=== PATIENT | female | born 1980 | race Caucasian/White ===

== ENCOUNTER → 2017-06-28 10:12 | Outpatient (CLI) | payer OTHER, SELFPAY ==
--- NOTE | 2017-06-28 | XR_ITS ---
XR foot wt bearing RT 2V HISTORY: Right foot pain ORDERING PHYSICIAN: Inessa Fuentes DPM PATIENT AGE: 36 years COMPARISON: None FINDINGS: Weightbearing views are performed. Flexion deformity involving the second through fifth digits. There is mild hallux valgus with first metatarsal phalangeal angle of 18 degrees with mild metatarsus varus. No fracture or dislocation. No lytic change or obvious radio opaque foreign body. No evidence of pes planus. IMPRESSION: Flexion deformity of the second through fifth toes with mild hallux valgus and metatarsus varus
--- NOTE | 2017-06-28 | XR_ITS ---
XR foot wt bearing LT 2V HISTORY: Foot pain ORDERING PHYSICIAN: Inessa Fuentes DPM PATIENT AGE: 36 years COMPARISON: 10/10/2007 FINDINGS: Weightbearing views are performed No fracture or dislocation. No lytic or blastic change. There is normal mineralization.. The joint spaces are well-preserved. No significant degenerative/arthritic changes. No erosive changes evident. There is mild pes planus with the calcaneal inclination angle of 16 degrees . No radio opaque foreign bodies evident. There is small calcaneal spur 3 mm. There is a vague area of increased density involving the distal tibial shaft seen on the lateral view nonspecific and may actually been present on the old study. IMPRESSION: 1. Mild pes planus. 2. Small calcaneal spur. 3. Nonspecific sclerotic area of the distal tibia.
== END ==
PROVIDERS: PCP Emergency Medicine; Visit Provider Podiatrist
DX: L84 Corns and callosities (principal)
CPT/HCPCS: 73620

== ENCOUNTER → 2017-07-05 14:30 | Outpatient (CLI) | payer OTHER, SELFPAY | PROVIDERS: Family Provider Emergency Medicine; PCP Emergency Medicine; Visit Provider Podiatrist | DX: S90.851D Superficial foreign body, right foot, subsequent encounter (principal) | CPT/HCPCS: 87070; 87077; 87205 ==

== ENCOUNTER → 2017-07-06 08:21 | Outpatient (CLI) | payer OTHER, SELFPAY ==
[2017-07-06 08:54] LABS: Basophils # 0.1 K/mm3 (0-0.2); Basophils % 0.8 % (0.1-2.0); Eosinophils # 0.2 K/mm3 (0.0-0.4); Eosinophils % 2.3 % (0.1-12.0); Hematocrit 44.9 % (37.0-47.0); Hemoglobin 14.3 g/dL (12.2-16.2); Lymphocytes # 2.6 K/mm3 (0.7-4.5); Lymphocytes % 24.2 K/mm3 (10-50); Mean Corpuscular HGB Conc 31.8 g/dL (31.8-35.4); Mean Corpuscular Hemoglobin 27.1 pg (27.0-31.2); Mean Corpuscular Volume 85.3 fl (81-99); Mean Platelet Volume 7.5 fl (7.4-10.4); Monocytes # 0.6 K/mm3 (0.1-1.0); Monocytes % 5.7 % (1.7-9.3); Neutrophils # 7.1 K/mm3 (1.8-7.8); Platelet Count 277 K/mm3 (142-424); Red Blood Count 5.27 M/mm3 (4.20-5.40); Red Cell Distribution Width 14.2 % (11.5-17.5); White Blood Count 10.6 K/mm3 (4.8-10.8)
[2017-07-06 09:57] LABS: C-Reactive Protein < 0.2 mg/L (0.0-0.9)
[2017-07-06 10:35] LABS: Erythrocyte Sedimentation Rate 9 mm/hr (0-20)
== END ==
PROVIDERS: PCP Emergency Medicine; Visit Provider Podiatrist
DX: S90.851D Superficial foreign body, right foot, subsequent encounter (principal)
CPT/HCPCS: 36415; 85025; 85651; 86140

== ENCOUNTER → 2019-03-19 11:28 | Outpatient (CLI) | payer OTHER, SELFPAY ==
--- NOTE | 2019-03-19 11:58 | XR_ITS ---
PROCEDURE: XR KNEE RT 3V CLINICAL INDICATION: pain COMPARISON: No exams were available for comparison FINDINGS: No fracture or dislocation. No lytic or blastic change. There is normal mineralization. Minimal osteoarthritic changes are present at the medial compartment and patellofemoral joint. No obvious fracture or dislocation. No lytic or blastic change. Other findings:None. 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
[2019-03-19 12:17] LABS: Basophils # 0.1 K/mm3 (0-0.2); Basophils % 0.6 % (0.1-2.0); Eosinophils # 0.3 K/mm3 (0.0-0.4); Eosinophils % 2.7 % (0.1-12.0); Hematocrit 44.9 % (37.0-47.0); Hemoglobin 13.4 g/dL (12.2-16.2); Lymphocytes # 2.4 K/mm3 (0.7-4.5); Lymphocytes % 21.6 % (10-50); Mean Corpuscular HGB Conc 29.7 g/dL (31.8-35.4); Mean Corpuscular Hemoglobin 26.2 pg (27.0-31.2); Mean Corpuscular Volume 88.1 fl (81-99); Mean Platelet Volume 7.5 fl (7.4-10.4); Monocytes # 0.7 K/mm3 (0.1-1.0); Monocytes % 6.7 % (1.7-9.3); Neutrophils # 7.4 K/mm3 (1.8-7.8); Neutrophils % 68.3 % (37.0-80.0); Platelet Count 354 K/mm3 (142-424); White Blood Count 10.8 K/mm3 (4.8-10.8)
[2019-03-19 12:47] LABS: Erythrocyte Sedimentation Rate 7 mm/hr (0-20)
[2019-03-19 13:48] LABS: Alanine Aminotransferase 20 U/L (12-78); Albumin Level 3.7 gm/dL (3.4-5.0); Albumin/Globulin Ratio 1.1 (1.1-1.8); Alkaline Phosphatase 50 U/L (46-116); Anion Gap 15.1 mEq/L (5-15); Aspartate Amino Transferase 16 U/L (15-37); Bilirubin,Total 0.2 mg/dL (0.2-1.0); Blood Urea Nitrogen 14 mg/dL (7-18); C-Reactive Protein 0.4 mg/dL (0.0-0.9); Calcium 9.3 mg/dL (8.5-10.1); Carbon Dioxide 26 mmol/L (21.0-32.0); Chloride 104 mmol/L (98-107); Chol/HDL Ratio 3.9 (1-3.5); Cholesterol 217 mg/dL (140-200); Creatinine,Serum 0.59 mg/dL (0.55-1.02); Estimated Glomerular Filt Rate 113 ml/min (>60); Free T4 (Free Thyroxine) 0.91 ng/dl (0.76-1.46); GFR (African American) 137 ML/MIN (>60); Globulin 3.3 gm/dl (1.3-3.2); Glucose 118 mg/dL (74-106); HDL Cholesterol 56 mg/dL (29-89); LDL Cholesterol 128 mg/dL (0-130); Potassium 4.1 mmoL/L (3.5-5.1); Sodium 141 mmol/L (136-145); Thyroid Stimulating Hormone 1.02 uIU/ml (0.358-3.740); Triglycerides 167 mg/dL (30-200); VLDL Cholesterol 33 mg/dL (0-40)
[2019-03-22 17:03] LABS: Vitamin D 25 Hydroxy 11.9 ng/mL (30.0-100.0)
== END ==
PROVIDERS: PCP Emergency Medicine; Visit Provider Nurse Practitioner Family
DX: M25.561 Pain in right knee (principal); R53.83 Other fatigue; E55.9 Vitamin D deficiency, unspecified
CPT/HCPCS: 36415; 73562; 80053; 80061; 82652; 84439; 84443; 85025; 85651; 86140

== ENCOUNTER → 2019-07-11 12:42 | Outpatient (CLI) | payer OTHER, SELFPAY ==
--- NOTE | 2019-07-11 12:42 | US_ITS ---
PROCEDURE: US EXTREMITY LT LIMITED CLINICAL INDICATION: lipoma below L inner knee Palpable area medial left knee COMPARISON: No exams were available for comparison FINDINGS: There is a superficial varicosity in the medial aspect of the left knee corresponding to the palpable abnormality. No cyst or other significant anomalies evident. IMPRESSION: Varicose vein in the medial left knee corresponding to palpable abnormality Dictated by: Saad Summers MD 07/11/2019 16:23 Electronically signed by Saad Summers MD in [place] 07/11/2019 16:23
--- NOTE | 2019-07-11 12:44 | US_ITS ---
PROCEDURE: US ABDOMEN COMPLETE CLINICAL INDICATION: Nodule under R lower ribs and periumbilical area Palpable nodule right upper quadrant COMPARISON: No exams were available for comparison FINDINGS: There are multiple palpable nodules in the right upper quadrant all demonstrating similar imaging characteristics. At least 5 nodules are present the largest measuring 2.5 x 1 x 2.2 cm with slight increased echogenicity consistent with multiple lipomas. IMPRESSION: Subcutaneous lipomas in the right upper quadrant Dictated by: Saad Summers MD 07/11/2019 16:21 Electronically signed by Saad Summers MD in [place] 07/11/2019 16:21
== END ==
PROVIDERS: PCP Emergency Medicine; Visit Provider Nurse Practitioner Family
DX: D17.79 Benign lipomatous neoplasm of other sites (principal); R22.2 Localized swelling, mass and lump, trunk
CPT/HCPCS: 76700; 76882

== ENCOUNTER 2020-07-07 15:28 | Emergency (ER) | payer OTHER, SELFPAY ==
[2020-07-07] VITALS (7 sets, daily range): BP systolic 112–133; BP diastolic 63–80; PULSE 69–88; RESP 13–25; TEMP 36.8–37.2; O2SAT 97–99; BMI 39.1
--- NOTE | 2020-07-07 15:31 | ECG_ITS ---
APPROVED REPORT Exam: Resting ECG HR:78 bpm ECG Measurements Heart Rate 78 AXES AL 180 P 55 QRSd 98 QRS 23 QT 410 T 10 QTc 467 Conclusion Normal sinus rhythm Normal ECG Electronically signed by : Bryce Sorenson, 07/08/2020 21:09:07
--- NOTE | 2020-07-07 15:39 | XR_ITS ---
PROCEDURE: XR CHEST 2V CLINICAL HISTORY: chest pain COMPARISON: No exams were available for comparison FINDINGS: The cardiomediastinal silhouette and pulmonary vascularity are within normal limits. The lungs are clear without infiltrates, suspicious nodules, or pleural effusions. No acute bony abnormalities. IMPRESSION: No acute findings. Dictated by: Saad Summers MD 07/07/2020 16:16 Saad Summers MD in [place] 07/07/2020 16:16
--- NOTE | 2020-07-07 15:40 | HMH.EDCP ---
ED Disposition Clinical Impression: Chest pain Qualifiers: Chest pain type: unspecified Qualified Code(s): R07.9 - Chest pain, unspecified Disposition: Home, Self-Care Condition on Discharge: Good Instructions: DI for Atypical Chest Pain, DI for Chest Pain Referrals: Maribel Mccall PA [Primary Care Provider] - 3 days Geraldo Anne MD [Staff Physician] - 3 days - Critical Care Critical Care Time: No Attestation: On , the high probability of a clinically significant, sudden or life threatening deterioration of the following system(s) required my full and direct attention, intervention and personal management. The time I documented below is in addition to time spent performing reported procedures but includes the following listed in this critical care notation. Medical Decision Making - Medical Records Medical records reviewed: Yes: I reviewed the patient's medical records. - Levon Inquiry Pt receiving controlled substance: No Vital Signs: 07/07/20 15:28 07/07/20 15:58 07/07/20 16:28 Temperature 98.9 F Temperature Source Oral Pulse Rate [Left Radial] 88 84 82 Respiratory Rate 20 14 25 H Blood Pressure [Right Arm] 126/63 124/70 114/73 Blood Pressure Mean [Right Arm] 84 88 86 Blood Pressure Source [Right Arm] Automatic Cuff Automatic Cuff Automatic Cuff Blood Pressure Position [Right Arm] Sitting Sitting Sitting 02 Sat by Pulse Oximetry 97 98 97 Oxygen Delivery Method Room Air Room Air Room Air 07/07/20 17:00 07/07/20 17:30 07/07/20 18:08 Temperature Temperature Source Pulse Rate [Left Radial] 72 71 69 Respiratory Rate 13 20 16 Blood Pressure [Right Arm] 127/72 119/77 133/65 Blood Pressure Mean [Right Arm] 90 91 87 Blood Pressure Source [Right Arm] Automatic Cuff Automatic Cuff Automatic Cuff Blood Pressure Position [Right Arm] Sitting Supine Sitting 02 Sat by Pulse Oximetry 98 99 99 Oxygen Delivery Method Room Air Room Air Room Air - Lab Data Lab results reviewed: Yes: I reviewed the patient's lab results. Lab Results 07/07/20 15:36: Sodium 140, Potassium 3.8, Chloride 106, Carbon Dioxide 26, Anion Gap 11.8, BUN 14, Creatinine 0.60, Estimated Creat Clear 221, Estimated GFR 110, Est GFR ( Amer) 133, Glucose 109 H, Calcium 9.7, Total Bilirubin 0.3, AST 23, ALT 20, Alkaline Phosphatase 62, Troponin I < 0.01, Total Protein 8.0, Albumin 4.7, Globulin 3.3 H, Albumin/Globulin Ratio 1.4 07/07/20 15:36: WBC 8.4, RBC 5.39, Hgb 14.6, Hct 45.9, MCV 85.2, MCH 27.0, MCHC 31.7 L, RDW 15.1, Plt Count 347, MPV 7.6, Neut % (Auto) 59.0, Lymph % (Auto) 30.7, Gaines % (Auto) 6.2, Eos % (Auto) 3.3, Baso % (Auto) 0.9, Neut # (Auto) 5.0, Lymph # (Auto) 2.6, Gaines # (Auto) 0.5, Eos # (Auto) 0.3, Baso # (Auto) 0.1 07/07/20 18:05: Troponin I < 0.01 Result diagrams: 07/07/20 15:36 07/07/20 15:36 Orders (Tests/Meds): ED MEDICATIONS Generic Name Dose Route Start Last Admin Trade Name Freq PRN Reason Stop Dose Admin Nitroglycerin 0.4 mg 07/07/20 15:38 07/07/20 15:48 Nitroglycerin 0.4mg Sl Tablet SL 07/08/20 15:39 0.4 mg Q5MINP PRN Administration Chest Pain Discontinued Medications Generic Name Dose Route Start Last Admin Trade Name Freq PRN Reason Stop Dose Admin Aspirin 324 mg 07/07/20 15:38 07/07/20 15:42 Aspirin 81mg Chewable Tablet PO 07/07/20 15:39 324 mg ONCE ONE Administration ORDERS Category Date Time Status Troponin I Q3H Lab 07/07/20 21:45 Ordered - ECG Data Tracing #1 EKG at 1531 shows a normal sinus rhythm with a rate of 78. No acute ST segment elevation or depression. No hyperacute T waves. Normal intervals. EKG interpreted by me. - MANJU Score for Non-Stemi Age of Patient: 40-49 years old Heart Rate: 70-89 bpm Systolic Blood Pressure: 120-139 mmhg Serum Creatinine: 0.40-0.79 mg/dl CHF Killip Class: I-No CHF Other Risk Factors: None Non-Stemi Risk Score: 72 Medical Decision Narrative: Troponins x2 are negative. G
[2020-07-07 15:50] LABS: Basophils # 0.1 K/mm3 (0-0.2); Basophils % 0.9 % (0.1-2.0); Eosinophils # 0.3 K/mm3 (0.0-0.4); Eosinophils % 3.3 % (0.1-12.0); Hematocrit 45.9 % (37.0-47.0); Hemoglobin 14.6 g/dL (12.2-16.2); Lymphocytes # 2.6 K/mm3 (0.7-4.5); Lymphocytes % 30.7 % (10-50); Mean Corpuscular HGB Conc 31.7 g/dL (31.8-35.4); Mean Corpuscular Volume 85.2 fl (81-99); Mean Platelet Volume 7.6 fl (7.4-10.4); Monocytes # 0.5 K/mm3 (0.1-1.0); Monocytes % 6.2 % (1.7-9.3); Platelet Count 347 K/mm3 (142-424); Red Blood Count 5.39 M/mm3 (4.20-5.40); Red Cell Distribution Width 15.1 % (11.5-17.5); White Blood Count 8.4 K/mm3 (4.8-10.8)
[2020-07-07 15:55] LABS: Chloride 106 mmol/L (98-107)
[2020-07-07 15:56] LABS: Potassium 3.8 mmoL/L (3.5-5.1); Sodium 140 mmol/L (136-145)
[2020-07-07 15:58] LABS: Alanine Aminotransferase 20 U/L (12-78); Alkaline Phosphatase 62 U/L (38-126); Anion Gap 11.8 mEq/L (5-15); Aspartate Amino Transferase 23 U/L (14-36); Bilirubin,Total 0.3 mg/dl (0.2-1.3); Blood Urea Nitrogen 14 mg/dl (7-17); Carbon Dioxide 26 mmol/L (22.0-30.0); Creatinine Clearance Estimated 221 mL/min (50-200); Estimated Glomerular Filt Rate 110 ml/min (>60); GFR (African American) 133 ML/MIN (>60)
[2020-07-07 15:59] LABS: Albumin Level 4.7 g/dl (3.5-5.0); Albumin/Globulin Ratio 1.4 (1.1-1.8); Calcium 9.7 mg/dl (8.4-10.2); Globulin 3.3 g/dL (1.3-3.2); Glucose 109 mg/dl (74-100)
[2020-07-07 16:13] LABS: Troponin I < 0.01 ng/ml (0.00-0.034)
[2020-07-07 18:47] LABS: Troponin I < 0.01 ng/ml (0.00-0.034)
== END 2020-07-07 18:59 | disposition home or self-care (01) ==
PROVIDERS: Emergency Provider Emergency Medicine; PCP Physician Assistant
DX: R07.9 Chest pain, unspecified (principal); E03.9 Hypothyroidism, unspecified; F41.9 Anxiety disorder, unspecified; E78.5 Hyperlipidemia, unspecified; F17.210 Nicotine dependence, cigarettes, uncomplicated; Z79.899 Other long term (current) drug therapy
CPT/HCPCS: 71046; 80053; 84484; 85025; 93005; 99283

== ENCOUNTER → 2020-07-23 07:09 | Outpatient (CLI) | payer SELFPAY ==
--- NOTE | 2020-07-23 07:09 | CT_ITS ---
PROCEDURE: CT HEART W CALCIUM SCORE Referring Doctor: Brenna Anderson Patient Age:39Y CLINICAL HISTORY: chest pain the the the the Current smoker COMPARISON: No exams were available for comparison TECHNIQUE: Limited helical axial images obtained the region of heart. Computer analysis than performed to evaluate the coronary artery calcium scoring. All CT scans at the facility use one or more dose reduction, viz: automated exposure control, ma/kV adjustment per patient size (including targeted exams where dose is matched to indication, i.e. head), or iterative reconstruction technique. FINDINGS: . the patient's total calcium score was 0. No identifiable atherosclerotic plaque on computer analysis.. This is compatible with very low risk of significant cardiovascular disease. Visual inspection of coronaries show no calcified plaque either. Heart appears normal in size. No pericardial effusion The visualized mediastinum with no significant appearing adenopathy. Small/Moderate size lymph nodes at the precarinal region and subcarinal area observed. Collection of dense calcified nodes at the right cat reflect old granulomatous disease.. Left cat upper normal prominence mainly due to pulmonary artery and vein structures. The included limited views of lung fabian centrally and adjacent to the heart show no of suspicious lung nodule or mass. No focal pneumonia. There is suggestion of upper normal to mild thickening central airways likely reflects history of smoking, possibly with some mild chronic bronchitis changes IMPRESSION: 1..Coronary calcium scoring = 0 . This reflects very low cardiovascular disease risk 2.. On only note suggestion of borderline to perhaps the subtle thickening of central airways, particularly infrahilar regions, which may reflect history of smoking and some subtle mild chronic bronchitis changes. 3...Old granulomatous disease-with dense calcified nodes right cat Dictated by: Dimitry Frances MD 07/24/2020 11:30 Dimitry Frances MD in [place] 07/24/2020 11:30
== END ==
PROVIDERS: PCP Physician Assistant; Visit Provider Nurse Practitioner Family
DX: Z13.6 Encounter for screening for cardiovascular disorders (principal); R07.9 Chest pain, unspecified; F17.200 Nicotine dependence, unspecified, uncomplicated; Z86.718 Personal history of other venous thrombosis and embolism
CPT/HCPCS: 75571

== ENCOUNTER → 2020-07-23 07:30 | Outpatient (CLI) | payer OTHER, SELFPAY ==
--- NOTE | 2020-07-23 07:30 | CA_ITS ---
APPROVED REPORT Exam: Exercise Treadmill Technologist: Debra Sotelo Ht: 5 ft 7 in Wt: 245 lbs BSA: 2.20 m2 HR: 88 bpm BP: 113/43 mmHg Indications: Shortness of Breath, Chest pain Medical History Medications: None,,,,, Stress Test Details Test: Christopher HR Resting HR: 91 bpm Max Heart Rate (APMHR): 179 bpm Max HR Achieved: 151 bpm Target HR (85% APMHR): 152 bpm % of APMHR: 84 Recovery HR: 97 bpm BP Resting BP: 113.0/43.0 mmHg Max BP: 170.0/60.0 mmHg Recovery BP: 110.0/76.0 mmHg ECG Resting ECG: Normal sinus rhythm Clinical Exercise duration: 05:19 min Highest Stage Achieved: Exercise capacity: 7.0 METs Stress ECG Conclusion Patient exercised 5:19 on Christopher Protocol, stopping due to shortness of air. Symptoms: No chest pain. Arrhythmias/Ectopy: None ST-T Changes: Normal ST response to exercise. Conclusion: Normal GXT. GXT only (no imaging). Electronically signed by : Jesse Joseph, 07/24/2020 15:02:46
--- NOTE | 2020-07-23 07:30 | CA_ITS ---
APPROVED REPORT EXAM: Comprehensive 2D, Doppler, and color-flow Echocardiogram Technical Artist: Mirna Hutton RVT Ht: 5 ft 7 in Wt: 245lbs BSA: 2.20 BP: 130/78 mmHg Indications: CP,SOA,ROBLERO,EDEMA,FATIGUE,OBESITY,HX DVT, HX DRUG ABUSE 2D Dimensions LVOT 2.04 cm (M/F) 1.5-2.5 LA Volume 32.80 mL LA Volume Index 14.90 mL/m2 (M/F) 16-34 M-Mode Dimensions RVDd 2.66 cm (0.9-2.6) LA Diam 4.44 cm (1.9-4.0) LVDd 4.91 cm (3.5-5.7) Ao Diam 3.19 cm (2.0-3.7) LVDs 3.50 cm (3.5-5.7) IVSd 1.57 cm (0.6-1.1) PWd 0.84 cm (0.6-1.1) EF (Teich) 55.10% FS 28.70% EDV (Teich) 113.40 mL TAPSE 1.69 (<1.7) ESV (Teich) 50.90 mL LV Diastology E Decel Time 163.00 (160-240 msec) E/A Ratio 1.1 MED E' 5.40 (< 7 cm/sec) E'/MED E' Ratio 12.70 (>14) LAT E' 7.20 (<10 cm/sec) E/LAT E' Ratio 9.53 (>14) Aortic Valve AO Peak GR. 6.40 mmHg Mitral Valve MV E Max Alejandro. 69.00 (40-130 cm/s) MV A Velocity 63.00 (40-130 cm/s) E/A Ratio 1.10 MV Decel. Time 163.00 (160-240 ms) MV PHT 48.00 ms Pulmonary Valve PV Peak Velocity 95.00 (50-150 cm/s) Tricuspid Valve TR P. Velocity 187.00 cm/s RAP Estimate 10.00 mmHg RVSP 24.00 mmHg Left Ventricle Left atrium is upper limit of normal size, left ventricle is normal size, there is no concentric left ventricular hypertrophy, visually estimated ejection fraction 55% with no regional wall motion abnormality, diastolic parameters are inconclusive. Right Ventricle Right atrium and right ventricle are normal size and contractility. Aortic Valve Aortic valve is grossly normal, there is no aortic stenosis or aortic insufficiency. Mitral Valve Mitral valve is grossly normal, there is trace mitral regurgitation. Tricuspid Valve Tricuspid valve grossly normal, there is trace tricuspid regurgitation tricuspid regurgitation jet velocity is inadequate for calculation of the right ventricular systolic pressure. Pulmonic Valve Pulmonic valve is poorly visualized. Great Vessels Aortic root is normal size. Pericardium No significant pericardial effusion noted. Conclusion 1. Normal left ventricular size, preserved left ventricular systolic function, visually estimated ejection fraction 55% with no regional wall motion abnormality, diastolic parameters are inconclusive. 2. Trace mitral and tricuspid regurgitation. 3. No significant pericardial effusion noted. Electronically signed by : Jesse Joseph, 07/24/2020 11:29:01
== END ==
PROVIDERS: PCP Physician Assistant; Visit Provider Nurse Practitioner Family
DX: R07.9 Chest pain, unspecified (principal); R06.00 Dyspnea, unspecified; F17.200 Nicotine dependence, unspecified, uncomplicated; Z86.718 Personal history of other venous thrombosis and embolism; Z87.898 Personal history of other specified conditions
CPT/HCPCS: 93017; 93306

== ENCOUNTER 2020-08-31 09:21 | Emergency (ER) | payer OTHER, SELFPAY ==
[2020-08-31 09:22] VITALS: BP 148/90; PULSE 103; RESP 18; TEMP 37.4; O2SAT 98; BMI 39.1
[2020-08-31 09:41] LABS: UTC Strep Screen (Rapid) Negative (Negative)
[2020-08-31 09:46] VITALS: BP 150/84; PULSE 99; RESP 19; TEMP 37.2
--- NOTE | 2020-08-31 09:46 | HMH.EDUTC ---
[facility] [place] Disposition Clinical Impression: COVID-19 virus test result unknown Pharyngitis Qualifiers: Pharyngitis/tonsillitis etiology: other specified organisms Qualified Code(s): J02.8 - Acute pharyngitis due to other specified organisms Disposition: Home, Self-Care Condition on Discharge: Good Instructions: DI for COVID-19 (Suspected or Confirmed ), Preventing the Spread of Coronavirus Discharge Instructions, DI for Pharyngitis/Tonsillopharyngitis -- Adult Additional Instructions: Start antibiotics today be sure to take it as ordered with the full length of time although you should start feeling better in 24-48 hours. Change toothbrush and toothpaste 24-48 hours after starting antibiotics Tylenol or Motrin as needed for fever or pain Encourage fluids, water, Gatorade, Powerade, try cold fluids, popsicles, ice cream will make it feel better You are contagious for 24 hours. Avoid kissing anyone, no eating or drinking after anyone. You are contagious. Follow-up the ER for new or worsening symptoms or no noticeable improvement over the next 24-48 hours. Follow-up with PCP this week. self isolate until test results are known Prescriptions: predniSONE [Prednisone 20mg Tab] 20 mg PO BID #10 tab Transmission Status: Pending to [id number] Azithromycin [Zithromax 250mg tab] 250 mg PO DIRECTED #6 tab Transmission Status: Pending to [id number] Referrals: Maribel Mccall PA [Primary Care Provider] - Forms: Work/School Release Time of Disposition: 09:56 Medical Decision Making - Levon Inquiry Pt receiving controlled substance: No Vital Signs: 08/31/20 09:22 Temperature 99.3 F Temperature Source Oral Pulse Rate [Right] 103 H Respiratory Rate 18 Blood Pressure [Right Arm] 148/90 H Blood Pressure Mean [Right Arm] 109 Blood Pressure Source [Right Arm] Automatic Cuff Blood Pressure Position [Right Arm] Sitting 02 Sat by Pulse Oximetry 98 Oxygen Delivery Method Room Air - Lab Data Lab Results 08/31/20 09:39: Strep Scn Rapid Clinic Negative Orders (Tests/Meds): ORDERS Category Date Time Status Covid-19 Nasal PCR ([facility]) Routine Lab 08/31/20 09:39 Ordered Strep Screen Confirmation Stat Micro 08/31/20 09:39 Received [facility] HPI - General Chief complaint: Urgent [facility] Stated complaint: Sore Throat, cough Time Seen by Provider: 08/31/20 09:46 Mode of Arrival: Ambulatory Source of Information: Patient Limitations: No Limitations Description of Symptoms (Recalled from Triage Doc. by RN): pt has a cough, loss of taste and sore throat. HEENT Symptoms (Recalled from RN notes): Yes (sore throat loss of taste) Resp Symptoms (Recalled from RN notes): Yes (cough) Skin Symptoms (Recalled from RN notes): No MS Symptoms (Recalled from RN notes): No Functional Status (Recalled from RN notes): na - History of Present Illness Provider Complaint: 39 yr old female presents for cough,sore throat, loss of taste ans smell, sore lympnodes in neck and fever for 2 days. - Related Data Home Medications Medication Instructions Recorded Confirmed aspirin 81 mg tablet,delayed 81 mg PO DAILY 07/30/20 07/30/20 release Previous Rx's Medication Instructions Recorded nicotine 1 patch TRANSDERMA Q24H #56 patch 07/30/20 21mg/24hr-14mg/24hr-7mg/24hr daily transderm patches,sequentl Azithromycin [Zithromax 250mg 250 mg PO DIRECTED #6 tab 08/31/20 tab] predniSONE [Prednisone 20mg 20 mg PO BID #10 tab 08/31/20 Tab] Allergies Allergy/AdvReac Type Severity Reaction Status Date / Time codeine Allergy Unknown Verified 08/31/20 09:23 latex Allergy Unknown Verified 08/31/20 09:23 hydrocodone Allergy Hives Verified 08/31/20 09:23 viox Allergy Hives Uncoded 07/30/20 10:52 - Worker's Comp Is this a Worker's Comp case?: No [facility] History - Hepatitis A Screen Drug use history?: No High risk sexual behaviors?: No History of sexually tra
== END 2020-08-31 09:46 | disposition home or self-care (01) ==
PROVIDERS: Emergency Provider Nurse Practitioner Family; PCP Physician Assistant
DX: Z20.822 Contact with and (suspected) exposure to COVID-19 (principal); J02.8 Acute pharyngitis due to other specified organisms; E78.5 Hyperlipidemia, unspecified; F41.9 Anxiety disorder, unspecified; Z88.5 Allergy status to narcotic agent
CPT/HCPCS: 87880; 99202; G0463; U0003

== ENCOUNTER → 2020-10-29 09:05 | Outpatient (CLI) | payer OTHER, SELFPAY | PROVIDERS: PCP Physician Assistant; Visit Provider Physician Assistant | DX: Z20.822 Contact with and (suspected) exposure to COVID-19 (principal); U07.1 COVID-19 | CPT/HCPCS: U0003 ==

== ENCOUNTER → 2020-11-10 14:01 | Outpatient (CLI) | payer OTHER, SELFPAY ==
--- NOTE | 2020-11-10 14:06 | XR_ITS ---
PROCEDURE: XR CHEST PORTABLE CLINICAL HISTORY: COVID SCREENING COMPARISON: CR XR CHEST 2V from 07/07/2020 FINDINGS: The cardiomediastinal silhouette and pulmonary vascularity are within normal limits. The lungs are clear without infiltrates, suspicious nodules, or pleural effusions. No acute bony abnormalities. IMPRESSION: No acute findings. Dictated by: Saad Summers MD 11/10/2020 15:02 Saad Summers MD in [place] 11/10/2020 15:02
[2020-11-10 14:54] LABS: Basophils # 0.1 K/mm3 (0-0.2); Basophils % 0.4 % (0.1-2.0); Eosinophils # 0.3 K/mm3 (0.0-0.4); Eosinophils % 1.6 % (0.1-12.0); Hematocrit 41.1 % (37.0-47.0); Hemoglobin 13.5 g/dL (12.2-16.2); Lymphocytes # 2.3 K/mm3 (0.7-4.5); Lymphocytes % 15.4 % (10-50); Mean Corpuscular HGB Conc 32.9 g/dL (31.8-35.4); Mean Corpuscular Volume 82.1 fl (81-99); Mean Platelet Volume 7.3 fl (7.4-10.4); Monocytes # 0.6 K/mm3 (0.1-1.0); Monocytes % 3.7 % (1.7-9.3); Neutrophils % 78.9 % (37.0-80.0); Platelet Count 300 K/mm3 (142-424); Red Blood Count 5.01 M/mm3 (4.20-5.40); Red Cell Distribution Width 14.6 % (11.5-17.5); White Blood Count 15.2 K/mm3 (4.8-10.8)
[2020-11-10 14:56] LABS: MANUAL DIFFERENTIAL MANUAL DIFFERENTIAL (MANUAL DIFF)
[2020-11-10 15:23] LABS: Chloride 107 mmol/L (98-107); Potassium 3.9 mmoL/L (3.5-5.1); Sodium 139 mmol/L (136-145)
[2020-11-10 15:25] LABS: Alanine Aminotransferase 29 U/L (12-78); Aspartate Amino Transferase 31 U/L (14-36); Blood Urea Nitrogen 15 mg/dl (7-17); Estimated Glomerular Filt Rate 136 ml/min (>60); GFR (African American) 165 ML/MIN (>60)
[2020-11-10 15:26] LABS: Albumin Level 4.3 g/dl (3.5-5.0); Albumin/Globulin Ratio 1.7 (1.1-1.8); Alkaline Phosphatase 65 U/L (38-126); Anion Gap 12.9 mEq/L (5-15); Bilirubin,Total 0.4 mg/dl (0.2-1.3); Calcium 9.2 mg/dl (8.4-10.2); Carbon Dioxide 23 mmol/L (22.0-30.0); Globulin 2.5 g/dL (1.3-3.2); Glucose 144 mg/dl (74-100); Total Protein,Serum 6.8 g/dl (6.3-8.2)
[2020-11-10 15:32] LABS: C-Reactive Protein 13.9 mg/L (0-4)
[2020-11-10 15:42] LABS: Erythrocyte Sedimentation Rate 14 mm/hr (0-20)
[2020-11-10 15:59] LABS: Lymphocytes % 14 % (10-50); Neutrophils % 83 % (42-76); Total Cells Counted 100
[2020-11-10 16:00] LABS: RBC Morphology Normal
[2020-11-10 16:04] LABS: Platelet Estimate Normal
[2020-11-10 16:55] LABS: Procalcitonin 0.051 ng/mL (0.0-2.0)
== END ==
PROVIDERS: PCP Physician Assistant; Visit Provider Physician Assistant
DX: U07.1 COVID-19 (principal)
CPT/HCPCS: 36415; 71045; 80053; 84145; 85007; 85025; 85651; 86140

== ENCOUNTER → 2020-11-17 14:51 | Outpatient (CLI) | payer OTHER, SELFPAY ==
[2020-11-17 17:32] LABS: Chloride 106 mmol/L (98-107); Potassium 4.1 mmoL/L (3.5-5.1); Sodium 139 mmol/L (136-145)
[2020-11-17 17:34] LABS: Basophils # 0.1 K/mm3 (0-0.2); Basophils % 0.7 % (0.1-2.0); Eosinophils # 0.3 K/mm3 (0.0-0.4); Eosinophils % 3.6 % (0.1-12.0); Hematocrit 41.5 % (37.0-47.0); Hemoglobin 13.4 g/dL (12.2-16.2); Lymphocytes # 2.4 K/mm3 (0.7-4.5); Lymphocytes % 27.9 % (10-50); Mean Corpuscular HGB Conc 32.3 g/dL (31.8-35.4); Mean Corpuscular Hemoglobin 27.1 pg (27.0-31.2); Mean Platelet Volume 7.1 fl (7.4-10.4); Monocytes # 0.5 K/mm3 (0.1-1.0); Monocytes % 6.4 % (1.7-9.3); Neutrophils # 5.2 K/mm3 (1.8-7.8); Neutrophils % 61.4 % (37.0-80.0); Platelet Count 284 K/mm3 (142-424); Red Blood Count 4.93 M/mm3 (4.20-5.40); Red Cell Distribution Width 14.2 % (11.5-17.5); White Blood Count 8.5 K/mm3 (4.8-10.8)
[2020-11-17 17:35] LABS: Alanine Aminotransferase 25 U/L (12-78); Albumin Level 4.4 g/dl (3.5-5.0); Albumin/Globulin Ratio 1.5 (1.1-1.8); Alkaline Phosphatase 62 U/L (38-126); Anion Gap 10.1 mEq/L (5-15); Aspartate Amino Transferase 24 U/L (14-36); Bilirubin,Total 0.3 mg/dl (0.2-1.3); Blood Urea Nitrogen 10 mg/dl (7-17); Carbon Dioxide 27 mmol/L (22.0-30.0); Estimated Glomerular Filt Rate 110 ml/min (>60); GFR (African American) 133 ML/MIN (>60); Globulin 2.9 g/dL (1.3-3.2); Total Protein,Serum 7.3 g/dl (6.3-8.2)
[2020-11-17 17:36] LABS: Calcium 9.2 mg/dl (8.4-10.2); Glucose 85 mg/dl (74-100)
== END ==
PROVIDERS: PCP Physician Assistant; Visit Provider Physician Assistant
DX: U07.1 COVID-19 (principal)
CPT/HCPCS: 80053; 85025

== ENCOUNTER → 2020-11-27 11:34 | Outpatient (CLI) | payer OTHER, SELFPAY ==
[2020-11-27 12:14] LABS: Basophils # 0.1 K/mm3 (0-0.2); Basophils % 0.6 % (0.1-2.0); Eosinophils # 0.4 K/mm3 (0.0-0.4); Hematocrit 42.3 % (37.0-47.0); Hemoglobin 13.1 g/dL (12.2-16.2); Lymphocytes # 2.3 K/mm3 (0.7-4.5); Mean Corpuscular HGB Conc 30.9 g/dL (31.8-35.4); Mean Corpuscular Hemoglobin 26.5 pg (27.0-31.2); Mean Corpuscular Volume 85.9 fl (81-99); Mean Platelet Volume 7.3 fl (7.4-10.4); Monocytes # 0.6 K/mm3 (0.1-1.0); Monocytes % 5.3 % (1.7-9.3); Neutrophils # 8.2 K/mm3 (1.8-7.8); Platelet Count 332 K/mm3 (142-424); Red Blood Count 4.93 M/mm3 (4.20-5.40); Red Cell Distribution Width 13.9 % (11.5-17.5); White Blood Count 11.5 K/mm3 (4.8-10.8)
[2020-11-27 12:39] LABS: Erythrocyte Sedimentation Rate 11 mm/hr (0-20)
[2020-11-27 12:41] LABS: Chloride 107 mmol/L (98-107); Potassium 4.3 mmoL/L (3.5-5.1); Sodium 142 mmol/L (136-145)
[2020-11-27 12:44] LABS: Alanine Aminotransferase 28 U/L (12-78); Albumin Level 4.4 g/dl (3.5-5.0); Albumin/Globulin Ratio 1.6 (1.1-1.8); Alkaline Phosphatase 60 U/L (38-126); Anion Gap 15.3 mEq/L (5-15); Aspartate Amino Transferase 29 U/L (14-36); Bilirubin,Total 0.4 mg/dl (0.2-1.3); Calcium 9.4 mg/dl (8.4-10.2); Carbon Dioxide 24 mmol/L (22.0-30.0); Globulin 2.7 g/dL (1.3-3.2); Glucose 151 mg/dl (74-100); Total Protein,Serum 7.1 g/dl (6.3-8.2)
[2020-11-27 12:49] LABS: Blood Urea Nitrogen 16 mg/dl (7-17); Estimated Glomerular Filt Rate 110 ml/min (>60); GFR (African American) 133 ML/MIN (>60)
[2020-11-27 13:11] LABS: Coronavirus 19 IgG Antibody Positive (Negative); Coronavirus 19 IgM Antibody Negative (Negative)
[2020-11-27 13:12] LABS: C-Reactive Protein 7.1 mg/L (0-4)
[2020-11-27 13:25] LABS: Procalcitonin 0.045 ng/mL (0.0-2.0)
== END ==
PROVIDERS: Visit Provider Physician Assistant
DX: U07.1 COVID-19 (principal); B94.8 Sequelae of other specified infectious and parasitic diseases; R06.00 Dyspnea, unspecified; R50.81 Fever presenting with conditions classified elsewhere; R51.9 Headache, unspecified
CPT/HCPCS: 80053; 84145; 85025; 85378; 85651; 86140; 86328

== ENCOUNTER → 2020-12-12 07:37 | Outpatient (CLI) | payer OTHER, SELFPAY ==
--- NOTE | 2020-12-12 07:38 | CT_ITS ---
PROCEDURE: CT CHEST WO CON CLINICAL INDICATION: dyspnea after covid 10/28 COMPARISON: MG DMSB DIGITAL MAMM-SCREEN BILATERAL from 02/27/[address] HEART W CALCIUM SCORE from 07/23/2020 TECHNIQUE: Axial images obtained with sagittal and coronal reformats. All CT scans at the facility use one or more dose reduction, viz: automated exposure control, ma/kV adjustment per patient size (including targeted exams where dose is matched to indication, i.e. head), or iterative reconstruction technique. FINDINGS: HEART AND MEDIASTINAL STRUCTURES: Unremarkable. LUNGS AND PLEURAL SPACES: No lobar consolidation or collapse. There is some minimal irregular density noted in the right upper lobe anteriorly and could be due to an area of scarring or atelectatic change. Stability may be confirmed with follow-up. No effusions or suspicious nodules apparent. BONY STRUCTURES: No acute bony abnormalities apparent. UPPER ABDOMEN: Fatty liver. Prior cholecystectomy. ADDITIONAL FINDINGS: Asymmetric increased soft tissue density in the medial and inferior aspect of the right breast. This may only be related asymmetric fibroglandular tissue. However mammographies and ultrasound is suggested for confirmation. IMPRESSION: 1. No acute finding of the chest. Minimal irregular density in the right upper lobe which could be due to an area of scarring or atelectatic change. Six-month follow-up may confirm stability and exclude the possibility of and atypical developing nodule 2. Asymmetric density inferior right breast possibly due to fibroglandular tissue. Suggest mammogram and ultrasound for further evaluation. Dictated by: Saad Summers MD 12/12/2020 11:16 Saad Summers MD in [place] 12/12/2020 11:16
--- NOTE | 2020-12-12 07:38 | CT_ITS ---
PROCEDURE: CT HEAD/BRAIN WO CON CLINICAL INDICATION: headache after covid 10/28 COMPARISON: No exams were available for comparison TECHNIQUE: Axial images obtained. All CT scans at the facility use one or more dose reduction, viz: automated exposure control, ma/kV adjustment per patient size (including targeted exams where dose is matched to indication, i.e. head), or iterative reconstruction technique. FINDINGS: No midline shift, mass effect, intracranial hemorrhage, hydrocephalus, or extra-axial fluid collection is evident. The calvarium has an unremarkable appearance. No mastoid effusion. There is a 2 cm retention cyst in the right maxillary sinus along with minimal mucosal thickening of the left maxillary sinus IMPRESSION: No acute intracranial finding Dictated by: Saad Summers MD 12/12/2020 11:01 Saad Summers MD in [place] 12/12/2020 11:01
== END ==
PROVIDERS: PCP Physician Assistant; Visit Provider Physician Assistant
DX: R51.9 Headache, unspecified (principal); R06.00 Dyspnea, unspecified; R50.81 Fever presenting with conditions classified elsewhere; U07.1 COVID-19; B94.8 Sequelae of other specified infectious and parasitic diseases
CPT/HCPCS: 70450; 71250

== ENCOUNTER → 2021-01-14 13:52 | Outpatient (CLI) | payer OTHER, SELFPAY ==
--- NOTE | 2021-01-14 13:52 | MM_ITS ---
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 Spot compression views obtained. Bilateral breast ultrasound R2 CAD reviewed. FINDINGS: Heterogeneously dense fibroglandular tissue which may obscure overlying nodules. Right breast: Postsurgical changes present in the upper outer aspect of the right breast with some skin retraction in this region. On the migue images there is a questionable 8 mm nodule in the central aspect of the right breast. This however did appear to be present dating back to 2006 and may be due to an island of fibroglandular tissue. Areas of asymmetry in the medial and posterior aspect of the right breast appear to compress out as fibroglandular tissue. Architectural distortion noted in the lateral aspect of the right breast felt to be related to scarring similar to the previous exam. The area of asymmetric density on the CT scan is felt to be related to asymmetric fibroglandular tissue not a breast mass. Right breast ultrasound: In the 6 o'clock region of the right breast peripheral aspect there is a 10 x 5 mm slightly hypoechoic nodule with enhanced through the transmission of sound and may be due to a fibroadenoma. Ultrasound-guided FNA suggested. A 4 mm cyst is present the 7 o'clock region of the right breast. Left breast: 10 mm asymmetric density in the upper outer aspect of the left breast which is developed in the interval with no mammographic correlate. Stereotactic biopsy suggested. Scattered areas of asymmetry are present. There are 3 biopsy clips present in the left breast 1 in the 9 o'clock position medial 1/3, 1 in the 7 o'clock position medial 1/3, and 1 in the 8 o'clock position cysts central 1/3. The 2 ladder described clips were not present on the previous study. Left breast ultrasound: No cystic or solid lesions demonstrated. IMPRESSION: Right breast: 10 mm x 5 mm solid-appearing nodule in the 6 o'clock region of the right breast. This is seen on ultrasound. If the patient has more recent studies than we have for comparison then would suggest that they be submitted as there are new biopsy clips present between the 2 mammograms that we have at this institution. If the nodule is new then biopsy would be suggested. Left breast: New nodule in the upper outer left breast. The most recent exam is that we have are from 02/27/2010. There are new biopsy clips between these 2 exams. If more recent studies are available then recommend they be submitted for comparison. If this nodule is new then stereotactic biopsy would be suggested. BI-RAD Category: 0 Need Additional Imaging Evaluation FOLLOW-UP: Suggest comparison with most recent exams.. (A letter has been sent to the patient regarding results of the study.) Dictated by: Saad Summers MD 01/19/2021 14:21 Saad Summers MD in [place] 01/19/2021 14:21
== END ==
PROVIDERS: PCP Physician Assistant; Visit Provider Physician Assistant
DX: R92.2 Inconclusive mammogram (principal)
CPT/HCPCS: 76641; 77062; 77066; G0279

== ENCOUNTER → 2021-04-01 18:06 | Outpatient (CLI) | payer OTHER, SELFPAY ==
[2021-04-01 19:03] LABS: Basophils # 0.1 K/mm3 (0-0.2); Eosinophils # 0.2 K/mm3 (0.0-0.4); Eosinophils % 1.9 % (0.1-12.0); Hematocrit 45.3 % (37.0-47.0); Hemoglobin 14.1 g/dL (12.2-16.2); Lymphocytes # 2.3 K/mm3 (0.7-4.5); Lymphocytes % 19.7 % (10-50); Mean Corpuscular HGB Conc 31.1 g/dL (31.8-35.4); Mean Corpuscular Hemoglobin 27.5 pg (27.0-31.2); Mean Corpuscular Volume 88.4 fl (81-99); Mean Platelet Volume 8.8 fl (7.4-10.4); Monocytes # 0.6 K/mm3 (0.1-1.0); Monocytes % 5.2 % (1.7-9.3); Neutrophils # 8.3 K/mm3 (1.8-7.8); Neutrophils % 72.1 % (37.0-80.0); Platelet Count 400 K/mm3 (142-424); Red Blood Count 5.13 M/mm3 (4.20-5.40); Red Cell Distribution Width 14.8 % (11.5-17.5); White Blood Count 11.5 K/mm3 (4.8-10.8)
[2021-04-01 19:45] LABS: Erythrocyte Sedimentation Rate 4 mm/hr (0-20)
[2021-04-01 20:06] LABS: Alanine Aminotransferase 24 U/L (12-78); Albumin Level 4.3 g/dl (3.5-5.0); Albumin/Globulin Ratio 1.7 (1.1-1.8); Alkaline Phosphatase 57 U/L (38-126); Anion Gap 12.4 mEq/L (5-15); Aspartate Amino Transferase 31 U/L (14-36); Bilirubin,Total 0.2 mg/dl (0.2-1.3); Blood Urea Nitrogen 15 mg/dl (7-17); Calcium 9.7 mg/dl (8.4-10.2); Carbon Dioxide 25 mmol/L (22.0-30.0); Chloride 108 mmol/L (98-107); Estimated Glomerular Filt Rate 135 ml/min (>60); GFR (African American) 164 ML/MIN (>60); Globulin 2.6 g/dL (1.3-3.2); Glucose 126 mg/dl (74-100); Potassium 4.4 mmoL/L (3.5-5.1); Sodium 141 mmol/L (136-145); Total Protein,Serum 6.9 g/dl (6.3-8.2)
[2021-04-01 20:12] LABS: C-Reactive Protein 6.4 mg/L (0-4)
== END ==
PROVIDERS: Visit Provider Physician Assistant
DX: E11.9 Type 2 diabetes mellitus without complications (principal); K08.89 Other specified disorders of teeth and supporting structures
CPT/HCPCS: 80053; 83036; 85025; 85651; 86140

== ENCOUNTER 2021-04-13 09:31 | Emergency (ER) | payer OTHER, SELFPAY ==
[2021-04-13 10:40] VITALS: BP 129/76; PULSE 91; RESP 16; TEMP 37.1; O2SAT 98; BMI 34.4
--- NOTE | 2021-04-13 11:06 | HMH.EDUTC ---
[facility] [place] Disposition Clinical Impression: Abscess Cellulitis Qualifiers: Site of cellulitis: unspecified site Qualified Code(s): L03.90 - Cellulitis, unspecified Disposition: Home, Self-Care Condition on Discharge: Good Instructions: DI for Cellulitis -- Adult, DI for Skin Abscess Additional Instructions: *Start antibiotic(s) immediately and be sure to take as ordered for the FULL length of time although you may be feeling better or start to see improvement in the next 24-48 hours *Monitor closely. Outlined redness so that you can monitor easier. Follow up immediately for new or worsening symptoms including but not limited to redness, swelling, streaking from site fever or chills. *Warm compress 15 minutes 3-4 times day *Never squeeze or pop these on your own. Seek immediate medical attention next time this occurs *Monitor Temp. Tylenol every 4 hours as needed and ibuprofen every 6 hours as needed (as long as your primary care doctor has told you that it is ok to take both. For fever, aches, pain. ER if no less that 101 despite Tylenol and ibuprofen Follow up with your family doctor/primary care physician in the next 48-72 hours if no improvement Follow up with ENT if no improvement Follow up with dentist if needed Prescriptions: Sulfamethoxazole/Trimethoprim [Bactrim DS tablet] 1 each PO BID #14 tab Transmission Status: Pending to [facility]/pharmacy #[id number] Referrals: Maribel Mccall PA [Primary Care Provider] - Niko Cannon MD [Staff Physician] - Meagan Junior MD [Consulting Physician] - Time of Disposition: 11:20 Medical Decision Making - Levon Inquiry Pt receiving controlled substance: No Levon was queried for this patient: No Vital Signs: 04/13/21 10:40 Temperature 98.8 F Temperature Source Oral Pulse Rate [Right Brachial] 91 H Respiratory Rate 16 Blood Pressure [Right Arm] 129/76 Blood Pressure Mean [Right Arm] 93 Blood Pressure Source [Right Arm] Automatic Cuff Blood Pressure Position [Right Arm] Sitting 02 Sat by Pulse Oximetry 98 Oxygen Delivery Method Room Air [facility] [place] HPI - General Stated complaint: knot on face Time Seen by Provider: 04/13/21 11:07 Mode of Arrival: Ambulatory Source of Information: Patient Limitations: No Limitations Description of Symptoms (Recalled from Triage Doc. by RN): PATIENT C/O LUMP TO RIGHT LOWER JAW SINCE YESTERDAY HEENT Symptoms (Recalled from RN notes): Yes Resp Symptoms (Recalled from RN notes): No Skin Symptoms (Recalled from RN notes): No MS Symptoms (Recalled from RN notes): No Functional Status (Recalled from RN notes): WNL - History of Present Illness Provider Complaint: Patient states that she has been having alot of dental issues States that she has been on and off antibiotics for infection States that for the last couple of days she noticed area under her right jaw area that was hard and red States that she thinks she may have been bitten by spider - Related Data Home Medications Medication Instructions Recorded Confirmed penicillin V potassium 500 mg 500 mg PO QID tab 04/01/21 04/01/21 tablet Previous Rx's Medication Instructions Recorded salicylic acid 2 % topical cream 1 applic TOPICAL BID #227 g 02/16/21 triamcinolone acetonide 0.05 % 1 applic TOPICAL BID #430 g 02/16/21 topical ointment clindamycin HCl 300 mg capsule 300 mg PO Q8H #30 cap 04/01/21 phentermine 37.5 mg tablet 37.5 mg PO DAILY #30 tab 04/01/21 Sulfamethoxazole/Trimethoprim 1 each PO BID #14 tab 04/13/21 [Bactrim DS tablet] Allergies Allergy/AdvReac Type Severity Reaction Status Date / Time codeine Allergy Unknown Verified 04/01/21 12:58 latex Allergy Unknown Verified 04/01/21 12:58 acetaminophen [From Vicodin] Allergy Verified 04/13/21 11:03 hydrocodone Allergy Hives Verified 04/01/21 12:58 viox Allergy Hives Uncoded 04/01/21 12:58 - Worker's Comp Is this a Worker's Comp case?: No [facility] History - Hepatitis A Screen Drug use history?: No Hi
[2021-04-13 11:22] VITALS: BP 129/76; PULSE 91; RESP 16; TEMP 37.1; O2SAT 98
== END 2021-04-13 11:25 | disposition home or self-care (01) ==
PROVIDERS: Emergency Provider Nurse Practitioner; PCP Physician Assistant
DX: L02.01 Cutaneous abscess of face (principal); F41.9 Anxiety disorder, unspecified; E78.5 Hyperlipidemia, unspecified; F17.210 Nicotine dependence, cigarettes, uncomplicated
CPT/HCPCS: 99202; G0463

== ENCOUNTER 2021-05-06 19:49 | Emergency (ER) | payer OTHER, SELFPAY ==
[2021-05-06 19:50] VITALS: BP 127/74; PULSE 88; RESP 19; TEMP 36.9; O2SAT 99; BMI 37.5
--- NOTE | 2021-05-06 20:23 | HMH.EDUTC ---
[facility] [place] Disposition Clinical Impression: Abscess Disposition: Home, Self-Care Condition on Discharge: Good Instructions: DI for Skin Abscess, Doxycycline, Mupirocin Additional Instructions: Keep appointment with Family and ENT tomorrow as scheduled Follow up and advise Family Doctor and ENT that culture of wound was obtained and sent to lab Further instructions per Family Doctor and ENT Return if needed Straight to ER If any life threatening sympotms Prescriptions: Doxycycline Monohydrate [Doxycycline Arenac 100mg Tab] 100 mg PO Q12 10 Days #20 tab Transmission Status: Pending to [facility]pharmacy #[id number] Mupirocin Calcium [Mupirocin 2% Cream 15gm] 1 applicatio TP TID 10 Days #15 gm Transmission Status: Pending to [facility]acy #[id number] Referrals: Maribel Mccall PA [Primary Care Provider] - As needed Time of Disposition: 20:59 Medical Decision Making - Levon Inquiry Pt receiving controlled substance: No Levon was queried for this patient: No Vital Signs: 05/06/21 19:50 Temperature 98.4 F Temperature Source Oral Pulse Rate [Right Brachial] 88 Respiratory Rate 19 Blood Pressure [Right Arm] 127/74 Blood Pressure Mean [Right Arm] 91 Blood Pressure Source [Right Arm] Automatic Cuff Blood Pressure Position [Right Arm] Sitting 02 Sat by Pulse Oximetry 99 Oxygen Delivery Method Room Air Orders (Tests/Meds): ORDERS Category Date Time Status Wound Culture and Gram Stain Stat Micro 05/06/21 20:07 Ordered Medical Decision Narrative: Area draining culture obtained and sent to lab, area opened up and large amount of purulent drainage with small amount of bleeding noted from area Pt reports that she has been on multiple antibiotics over the last month or so for this and recently states that since they stuck a needle in it it has started to drain and today the drainage has been more persistent Discussed with pharmacy about all the recent antibiotics she has been on and decided to try mupiricin topical TID and Doxy 100mg BID x 10 days and obtain wound culture to see and patient to follow up with PCP tomorrow for further evaluation recommended packing wound and patient declined [facility] [place] HPI - General Stated complaint: Rifgt side under ear, swollen Time Seen by Provider: 05/06/21 20:24 Mode of Arrival: Ambulatory Source of Information: Patient Limitations: No Limitations Description of Symptoms (Recalled from Triage Doc. by RN): PATIENT C/O PLACE ON LEFT JAW BONE X 2 WEEKS. SHE REPORTS SHE HAS BEEN ON SEVERAL ANTIBIOTICS BUT IT IS NOT GETTING BETTER HEENT Symptoms (Recalled from RN notes): Yes Resp Symptoms (Recalled from RN notes): No Skin Symptoms (Recalled from RN notes): No MS Symptoms (Recalled from RN notes): No Functional Status (Recalled from RN notes): WNL - Related Data Home Medications Medication Instructions Recorded Confirmed Venlafaxine HCl [Effexor Xr] 37.5 mg PO DAILY 05/06/21 05/06/21 Previous Rx's Medication Instructions Recorded Doxycycline Monohydrate 100 mg PO Q12 10 Days #20 tab 05/06/21 [Doxycycline Arenac 100mg Tab] Mupirocin Calcium [Mupirocin 2% 1 applicatio TP TID 10 Days #15 gm 05/06/21 Cream 15gm] Allergies Allergy/AdvReac Type Severity Reaction Status Date / Time codeine Allergy Unknown Verified 04/27/21 15:36 latex Allergy Unknown Verified 04/27/21 15:36 acetaminophen [From Vicodin] Allergy Verified 04/27/21 15:36 hydrocodone Allergy Hives Verified 04/27/21 15:36 viox Allergy Hives Uncoded 04/27/21 14:01 - Worker's Comp Is this a Worker's Comp case?: No [place] History - Hepatitis A Screen Drug use history?: No High risk sexual behaviors?: No History of sexually transmitted infection?: No Currently employed?: No Childcare worker?: No Do you have indoor plumbing?: Yes Do you have electricity?: Yes Attestation statement:: This patient has been screened for Hepatitis A risk factors. I have reviewed the patient's past medical history:
[2021-05-06 21:00] VITALS: BP 127/74; PULSE 88; RESP 19; TEMP 36.9; O2SAT 99
== END 2021-05-06 21:06 | disposition home or self-care (01) ==
PROVIDERS: Emergency Provider Nurse Practitioner; PCP Physician Assistant
DX: L02.01 Cutaneous abscess of face (principal); F41.9 Anxiety disorder, unspecified; E11.9 Type 2 diabetes mellitus without complications; E78.5 Hyperlipidemia, unspecified; F17.210 Nicotine dependence, cigarettes, uncomplicated
CPT/HCPCS: 10060; 87070; 87077; 87186; 87205; 99202; G0463

== ENCOUNTER → 2021-06-29 10:02 | Outpatient (CLI) | payer OTHER, SELFPAY | PROVIDERS: Visit Provider Nurse Practitioner | DX: Z20.822 Contact with and (suspected) exposure to COVID-19 (principal) ==

== ENCOUNTER 2022-01-04 18:55 | Emergency (ER) | payer OTHER, SELFPAY ==
--- NOTE | 2022-01-04 19:00 | XR_ITS ---
PROCEDURE INFORMATION: Exam: XR Left Knee Exam date and time: 01/04/22 07:01 PM Age: 41 years old Clinical indication: Pain; Knee; Left; Additional info: Fall TECHNIQUE: Imaging protocol: Radiologic exam of the Left knee. Views: 3 views. COMPARISON: US EXTREMITY LT LIMITED 07/11/19 12:39 PM FINDINGS: Bones/joints: Normal. Soft tissues: Normal. IMPRESSION: No acute findings.
[2022-01-04 19:20] VITALS: BP 130/85; PULSE 80; RESP 18; TEMP 36.8; O2SAT 98; BMI 39.1
--- NOTE | 2022-01-04 19:44 | HMH.EDUTC ---
[facility] [place] Disposition Clinical Impression: Knee sprain Qualifiers: Encounter type: initial encounter Involved ligament of knee: unspecified ligament Laterality: left Qualified Code(s): S83.92XA - Sprain of unspecified site of left knee, initial encounter Disposition: Home, Self-Care Condition on Discharge: Good Instructions: How To Perform RICE (Rest, Ice, Compress, Elevate) Additional Instructions: *weight bearing as tolerated *RICE, Rest the extremity, Ice 15-20 minutes 3-4 times daily, Compress- wear the dilan wrap as discussed as much as possible to help reduce swelling and pain, Elevate the extremity when at rest *Dilan wrap is for support and help control swelling, use it except in the shower. Be sure that is not to tight but not to loose either *Elevate when resting *Ibuprofen every 6-8 hours as needed for pain an inflammation. If need something more can take Tylenol in between doses of Ibuprofen to help Immediately follow up with your family doctor for new or worsening of symptoms, or no noticeable improvement over the next 3-5 days Prescriptions: Ibuprofen [Ibuprofen 600mg Tablet] 600 mg PO Q6HP PRN #20 tab PRN Reason: Moderate Pain Transmission Status: [id number] Referrals: Maribel Mccall PA [Primary Care Provider] - As needed Ceferino Neff JR, MD [Physician] - Time of Disposition: 20:20 Medical Decision Making - Levon Inquiry Pt receiving controlled substance: No Levon was queried for this patient: No Vital Signs: 01/04/22 19:20 Temperature 98.2 F Temperature Source Oral Pulse Rate [Left Brachial] 80 Respiratory Rate 18 Blood Pressure [Left Arm] 130/85 Blood Pressure Mean [Left Arm] 100 Blood Pressure Source [Left Arm] Automatic Cuff Blood Pressure Position [Left Arm] Sitting 02 Sat by Pulse Oximetry 98 Oxygen Delivery Method Room Air Orders (Tests/Meds): ORDERS Category Date Time Status Knee XR left 3 views [XR knee LT 3V] Stat Exams 01/04/22 19:00 Taken - Radiology Data #1 Image(s): Knee Image Reviewed: Yes I have reviewed radiologist's interpretation IMPRESSION: No acute findings. [facility] [place]PI - General Stated complaint: AO 01/03 injuredleft knee Time Seen by Provider: 01/04/22 19:44 Mode of Arrival: Ambulatory Source of Information: Patient Limitations: No Limitations Description of Symptoms (Recalled from Triage Doc. by RN): PATIENT C/O LEFT KNEE INJURY AFTER SHE SLIPPED AND FELL YESTERDAY HEENT Symptoms (Recalled from RN notes): No Resp Symptoms (Recalled from RN notes): No Skin Symptoms (Recalled from RN notes): No MS Symptoms (Recalled from RN notes): Yes Functional Status (Recalled from RN notes): WNL - History of Present Illness Provider Complaint: Patient states that she slipped yesterday and her legs went out and her knee bent inward States that since then she has been having pain in her left knee when she walks or stands States that knee is swollen and pain mostly on the sides of the knee States that today it was still hurting and more swollen so she came in - Related Data Previous Rx's Medication Instructions Recorded Ibuprofen [Ibuprofen 600mg 600 mg PO Q6HP PRN #20 tab 01/04/22 Tablet] Allergies Allergy/AdvReac Type Severity Reaction Status Date / Time codeine Allergy Unknown Verified 07/29/21 10:03 latex Allergy Unknown Verified 07/29/21 10:03 acetaminophen [From Vicodin] Allergy Verified 07/29/21 10:03 hydrocodone Allergy Hives Verified 07/29/21 10:03 viox Allergy Hives Uncoded 05/26/21 13:05 - Worker's Comp Is this a Worker's Comp case?: No [facility] History - Hepatitis A Screen Attestation statement:: This patient has been screened for Hepatitis A risk factors. I have reviewed the patient's past medical history: Yes Medical History: Reports:: Anxiety, Cancer, Diabetes Mellitus Type 2, Hyperlipidemia Denies:: Aneurysm, Asthma, Atrial Fibrillation, Chronic Obstructive Pulmonary Disease (COPD
[2022-01-04 20:18] VITALS: BP 130/85; PULSE 80; RESP 18; TEMP 36.8; O2SAT 98
== END 2022-01-04 20:29 | disposition home or self-care (01) ==
PROVIDERS: Emergency Provider Nurse Practitioner; PCP Physician Assistant
DX: S83.92XA Sprain of unspecified site of left knee, initial encounter (principal); W01.0XXA Fall on same level from slipping, tripping and stumbling without subsequent striking against object, initial encounter
CPT/HCPCS: 29505; 73562; 99212; G0463

== ENCOUNTER 2022-03-15 15:07 | Emergency (ER) | payer OTHER, SELFPAY ==
--- NOTE | 2022-03-15 15:18 | CA_ITS ---
FINAL REPORT TECHNIQUE: Color Doppler, duplex Doppler and compression sonography of the left lower extremity deep venous systems was performed. CLINICAL HISTORY: EDEMA LLE,PAIN LLE,S/P FALL IN DECEMBER SPRAINED KNEE HAS DONE PHYSICAL THERAPY FOR A MONTH FINDINGS: There is no evidence of deep venous thrombosis from the level of the groin to the calf. The veins are patent and compressible. IMPRESSION: No evidence of deep venous thrombosis left lower extremity. Reviewed, Interpreted and Dictated by Jj Murray III, MD Transcribed by Shannon Vuong Authenticated and [facility]
[2022-03-15 15:40] VITALS: PULSE 83; RESP 17; TEMP 36.7; O2SAT 97; BMI 36.1
--- NOTE | 2022-03-15 15:56 | EXP.UTC ---
Discharge Plan Disposition Patient Disposition: Home, Self-Care Condition: Good Prescriptions Prescriptions: No Action ibuprofen 600 MG tablet 600 mg PO Q6HP PRN (Reason: Moderate Pain) Qty: 20 0RF Referrals Follow up/Referrals: Maribel Mccall PA [Primary Care Provider] - See instructions Activity Restrictions/Add. Instructions Additional Instructions/Restrictions: Follow up with Orthopedics as scheduled tomorrow for further treatment and evaluation Return if needed Straight to ER if any life threatening symptoms Follow up with your Family Doctor if no improvment or any worsening of symptoms Clinical Impressions Clinical Impression: Left leg swelling Instructions Patient Instructions: DI for Leg Pain Discharge ED Provider: Michelle Baugh [facility] General Stated complaint: swollen L leg pain Time Seen by Provider: 03/15/22 15:57 History of Present Illness Provider Complaint: Patient states that she initially hurt her left knee in December States that since then she has been seeing Orthopedics and Physical therapy States that for the last few weeks on and off swelling in knee and lower extremity is worse State that Physical therapy was worried she may have a blood clot States that she is suppose to see Orthopedics tomorrow so she came in today to get checked to make sure that she doesnt have a DVT before her appointment tomorrow States that she has had DVT before but this pain and swelling in leg is different Related Data Previous Rx's Medication Instructions Recorded ibuprofen 600 mg tablet 600 mg PO Q6HP PRN Moderate Pain 01/04/22 #20 tabs Allergies Allergy/AdvReac Type Severity Reaction Status Date / Time codeine Allergy Unknown Verified 07/29/21 10:03 latex Allergy Unknown Verified 07/29/21 10:03 acetaminophen [From Vicodin] Allergy Verified 07/29/21 10:03 hydrocodone Allergy Hives Verified 07/29/21 10:03 rofecoxib [From Vioxx] Allergy Verified 03/15/22 15:58 [facility] Medical History (Updated 03/15/22 @ 16:14 by Michelle Baugh APRN) BMI 39.0-39.9,adult Breast cancer Dyspnea Hx of deep venous thrombosis Insomnia Obesity (BMI 30-39.9) Psoriasis Psoriatic arthritis Tobacco dependence syndrome Surgical History (Updated 03/15/22 @ 15:57 by Carmen Álvarez RN) History of cholecystectomy History of hysterectomy History of tubal ligation Social History (Updated 03/15/22 @ 15:58 by Carmen Álvarez RN) Smoking Status: Current every day smoker tobacco type: cigarettes packs per day: 1 alcohol intake: never counseling provided: none substance use type: denies use current occupational status: other Travel in the last 8 weeks: Inside the [place] ROS Obtained: Yes All systems reviewed & no additional complaints except as documented and Yes Systems reviewed as appropriate & no additional complaints except as documented Constitutional Constitutional: Reports system reviewed and no additional complaints, except as documented and Reports as per HPI Cardiovascular Cardiovascular: Reports system reviewed and no additional complaints, except as documented and Reports as per HPI Respiratory Respiratory: Reports system reviewed and no additional complaints, except as documented and Reports as per HPI Musculoskeletal Musculoskeletal: Reports system reviewed and no additional complaints, except as documented, Reports as per HPI and Reports other Comments: Pain and swelling in leg since December but worse last week Physical Exam General General appearance: alert and in no apparent distress Respiratory Respiratory exam: Present normal lung sounds bilaterally; Absent respiratory distress or wheezes Cardiovascular Cardiovascular exam: Present regular rate, normal rhythm and normal heart sounds Expanded Lower Extremity Exam Left: Upper leg exam: Present swelling Leg image: 1. swelling in left knee and lower extremity on and off since December
[2022-03-15 15:58] VITALS: BP 0/0; PULSE 83; RESP 17; TEMP 36.7; O2SAT 97
== END 2022-03-15 16:25 | disposition home or self-care (01) ==
PROVIDERS: Emergency Provider Nurse Practitioner; PCP Physician Assistant
DX: M79.605 Pain in left leg (principal); M79.89 Other specified soft tissue disorders; C50.919 Malignant neoplasm of unspecified site of unspecified female breast; G47.00 Insomnia, unspecified; L40.50 Arthropathic psoriasis, unspecified; F17.210 Nicotine dependence, cigarettes, uncomplicated; Z68.39 Body mass index [BMI] 39.0-39.9, adult; Z79.1 Long term (current) use of non-steroidal anti-inflammatories (NSAID); Z88.5 Allergy status to narcotic agent; Z88.6 Allergy status to analgesic agent; Z88.8 Allergy status to other drugs, medicaments and biological substances; Z91.040 Latex allergy status
CPT/HCPCS: 93971; 99213; G0463

== ENCOUNTER 2022-03-27 13:55 | Emergency (ER) | payer OTHER, SELFPAY ==
--- NOTE | 2022-03-27 14:11 | EXP.UTC ---
Discharge Plan Disposition Patient Disposition: Home, Self-Care Condition: Good Prescriptions Prescriptions: New azithromycin [Zithromax] 250 mg tablet 250 mg PO UD DOSE PK Qty: 6 0RF Rx Instructions: Take two (2) tablets today, then one (1) tablet days #2 thru #5 benzonatate [benzonatate] 100 mg capsule 100 mg PO TIDP PRN (Reason: Cough) Qty: 30 0RF No Action ibuprofen 600 MG tablet 600 mg PO Q6HP PRN (Reason: Moderate Pain) Qty: 20 0RF Referrals Follow up/Referrals: Maribel Mccall PA [Primary Care Provider] - See instructions Activity Restrictions/Add. Instructions Additional Instructions/Restrictions: Drink plenty of fluids. Take tylenol or ibuprofen for pain or fever. Take the medications as directed. Follow up with your regular doctor. GO TO THE ER FOR ANY WORSENING SYMPTOMS Quarantine until you know the results of your covid-19 test. Notify your school or workplace of your results and follow their instructions regarding return to work/school. Clinical Impressions Clinical Impression: Pharyngitis Instructions Patient Instructions: DI for Strep Throat Discharge ED Provider: Moses Mcginnis [facility] [place] HPI General Stated complaint: possible flu strep throat Time Seen by Provider: 03/27/22 14:12 History of Present Illness Provider Complaint: She c/o sore throat for the past 3 days. She has a dry cough and she has had body aches also. She is worried that she has strep throat or the flu. She works at [employer] so she is exposed to many people. Related Data Previous Rx's Medication Instructions Recorded ibuprofen 600 mg tablet 600 mg PO Q6HP PRN Moderate Pain 01/04/22 #20 tabs azithromycin 250 mg tablet 250 mg PO UD DOSE PK #6 tabs 03/27/22 (Zithromax) benzonatate 100 mg capsule 100 mg PO TIDP PRN Cough #30 caps 03/27/22 Allergies Allergy/AdvReac Type Severity Reaction Status Date / Time codeine Allergy Unknown Verified 03/27/22 14:19 latex Allergy Unknown Verified 03/27/22 14:19 acetaminophen [From Vicodin] Allergy Verified 03/27/22 14:19 hydrocodone Allergy Hives Verified 03/27/22 14:19 rofecoxib [From Vioxx] Allergy Verified 03/27/22 14:19 PFSH PFS Medical History BMI 39.0-39.9,adult Breast cancer Dyspnea Hx of deep venous thrombosis Insomnia Obesity (BMI 30-39.9) Psoriasis Psoriatic arthritis Tobacco dependence syndrome Surgical History History of cholecystectomy History of hysterectomy History of tubal ligation Social History Smoking Status: Current every day smoker tobacco type: cigarettes packs per day: 1 alcohol intake: never counseling provided: none substance use type: denies use current occupational status: other Travel in the last 8 weeks: Inside the [place] ROS Obtained: Yes All systems reviewed & no additional complaints except as documented Constitutional Constitutional: Reports chills and Reports fever(s) Eyes Eyes: Denies eye discharge ENT Ears, Nose, Mouth, and Throat: Reports as per HPI Cardiovascular Cardiovascular: Denies chest pain Respiratory Respiratory: Denies chest congestion and Reports cough Gastrointestinal Gastrointestingal: Reports nausea; Denies abdominal pain, constipation, cramping, diarrhea or vomiting Musculoskeletal Musculoskeletal: Denies arthralgias Integumentary/Breasts Skin/Breast: Denies rash Neurologic Neurologic: Denies paresthesias Physical Exam General General appearance: alert and in no apparent distress Head Head exam: atraumatic, normocephalic and normal inspection Eye Eye exam: Present normal appearance, PERRL and EOMI ENT ENT exam: Present mucous membranes moist and normal external ear exam Expanded ENT Exam TM/Canal exam: Bilateral TM: erythema and bulging Nose exam: Absent sinus tenderness Mo
[2022-03-27 14:17] VITALS: BP 163/77; PULSE 85; RESP 16; TEMP 36.8; O2SAT 97; BMI 40.3
[2022-03-27 14:24] LABS: UTC Strep Screen (Rapid) Negative (Negative)
[2022-03-27 14:35] LABS: UTC Influenza A Antigen Negative (Negative)
[2022-03-27 14:36] LABS: UTC Influenza B Antigen Negative (Negative)
[2022-03-27 14:46] VITALS: BP 163/77; PULSE 85; RESP 16; TEMP 36.8
[2022-03-27 14:54] LABS: Adenovirus,PCR Not Detected (NotDetected); Bordetella Pertussis Not Detected (NotDetected); Chlamydophila Pneumoniae, PCR Not Detected (NotDetected); Coronavirus 19, PCR Not Detected (NotDetected); Coronavirus 229E Not Detected (NotDetected); Coronavirus NL63 Not Detected (NotDetected); Coronavirus OC43 Not Detected (NotDetected); Coronovirus HKU1,PCR Not Detected (NotDetected); Human Metapneumovirus Not Detected (NotDetected); Influenza A, PCR Not Detected (NotDetected); Influenza AH1, 2009 Not Detected (NotDetected); Influenza AH1, PCR Not Detected (NotDetected); Influenza AH3,PCR Not Detected (NotDetected); Influenza B, PCR Not Detected (NotDetected); Mycoplasma Pneumoniae, PCR Not Detected (NotDetected); Parainfluenza 1, PCR Not Detected (NotDetected); Parainfluenza 2, PCR Not Detected (NotDetected); Parainfluenza 3, PCR Not Detected (NotDetected); Parainfluenza 4, PCR Not Detected (NotDetected); Respiratory Syncytial Virus Not Detected (NotDetected)
[2022-03-27 16:57] LABS: Rhinovirus/Enterovirus Detected (NotDetected)
== END 2022-03-27 14:53 | disposition home or self-care (01) ==
PROVIDERS: Emergency Provider Nurse Practitioner Family; PCP Physician Assistant
DX: J02.9 Acute pharyngitis, unspecified (principal); B34.1 Enterovirus infection, unspecified; R50.9 Fever, unspecified; M79.10 Myalgia, unspecified site; R05.9 Cough, unspecified; Z20.822 Contact with and (suspected) exposure to COVID-19; R11.0 Nausea; L40.50 Arthropathic psoriasis, unspecified; L40.9 Psoriasis, unspecified; G47.00 Insomnia, unspecified; E66.9 Obesity, unspecified; F17.210 Nicotine dependence, cigarettes, uncomplicated; Z68.41 Body mass index [BMI] 40.0-44.9, adult; Z79.1 Long term (current) use of non-steroidal anti-inflammatories (NSAID); Z79.899 Other long term (current) drug therapy; Z88.5 Allergy status to narcotic agent; Z88.6 Allergy status to analgesic agent; Z88.8 Allergy status to other drugs, medicaments and biological substances; Z91.040 Latex allergy status; Z86.718 Personal history of other venous thrombosis and embolism; Z85.3 Personal history of malignant neoplasm of breast
CPT/HCPCS: 87581; 87632; 87798; 87804; 87880; 99213; C9803; G0463; U0003; U0005

== ENCOUNTER 2022-04-18 09:59 | Emergency (ER) | payer OTHER, SELFPAY ==
[2022-04-18 10:45] VITALS: BP 121/90; PULSE 89; RESP 20; TEMP 36.8; O2SAT 99; BMI 36.0
[2022-04-18 11:14] LABS: UTC Influenza A Antigen Positive (Negative); UTC Influenza B Antigen Negative (Negative)
--- NOTE | 2022-04-18 11:20 | EXP.UTC ---
Discharge Plan Disposition Patient Disposition: Home, Self-Care Prescriptions Prescriptions: New oseltamivir [Tamiflu] 75 mg capsule 75 mg PO BID 5 Days Qty: 10 0RF No Action ibuprofen 600 MG tablet 600 mg PO Q6HP PRN (Reason: Moderate Pain) Qty: 20 0RF azithromycin [Zithromax] 250 mg tablet 250 mg PO UD DOSE PK Qty: 6 0RF Rx Instructions: Take two (2) tablets today, then one (1) tablet days #2 thru #5 benzonatate [benzonatate] 100 mg capsule 100 mg PO TIDP PRN (Reason: Cough) Qty: 30 0RF Referrals Follow up/Referrals: Maribel Mccall PA [Primary Care Provider] - See instructions Activity Restrictions/Add. Instructions Additional Instructions/Restrictions: No sign of a bacterial infection. Likely viral. Viruses can take 7-14 days to run their course. Nasal saline and bulb syringe or nose Elaine to remove nasal drainage to help with nasal congestion. Hard to eat, drink, sleep with nasal congestion so important to keep this cleaned out. Monitor temp. Tylenol or Motrin as needed for pain or fever Encourage fluids, water, Gatorade, Powerade, Pedialyte if /toddler/child Warm salt water gargles Warm fluids Sore throat lozenges Sleep elevated Humidifier/vaporizer Follow-up immediately for new or worsening symptoms or no noticeable improvement over the next 48-72 hours. Clinical Impressions Clinical Impression: Influenza A Instructions Patient Instructions: Influenza Discharge ED Provider: Keshia ([facility] HPI General Stated complaint: conugestion, cough, sore throat, TURNER Mode of Arrival: Ambulatory Source of Information: Patient Limitations: No Limitations Time Seen by Provider: 04/18/22 11:20 Description of Symptoms (Recalled from Triage Doc. by RN): PATIENT C/O CHEST CONGESTION AND BODY ACHES X 2 DAYS HEENT Symptoms (Recalled from RN notes): No Resp Symptoms (Recalled from RN notes): Yes Skin Symptoms (Recalled from RN notes): No MS Symptoms (Recalled from RN notes): No Functional Status (Recalled from RN notes): WNL History of Present Illness Provider Complaint: 41 yr old female presents for chest congestion and body aches for 2 days Related Data Previous Rx's Medication Instructions Recorded ibuprofen 600 mg tablet 600 mg PO Q6HP PRN Moderate Pain 01/04/22 #20 tabs azithromycin 250 mg tablet 250 mg PO UD DOSE PK #6 tabs 03/27/22 (Zithromax) benzonatate 100 mg capsule 100 mg PO TIDP PRN Cough #30 caps 03/27/22 oseltamivir 75 mg capsule (Tamiflu) 75 mg PO BID 5 days #10 caps 04/18/22 Allergies Allergy/AdvReac Type Severity Reaction Status Date / Time codeine Allergy Unknown Verified 03/27/22 14:19 latex Allergy Unknown Verified 03/27/22 14:19 acetaminophen [From Vicodin] Allergy Verified 03/27/22 14:19 hydrocodone Allergy Hives Verified 03/27/22 14:19 rofecoxib [From Vioxx] Allergy Verified 03/27/22 14:19 Worker's Comp Is this a Worker's Comp case?: No PFSH PFSH Medical History (Reviewed 04/18/22 @ 11:21 by Param Schmitt ([facility]), GENETICS PHYSICIAN) BMI 39.0-39.9,adult Breast cancer Dyspnea Hx of deep venous thrombosis Insomnia Obesity (BMI 30-39.9) Psoriasis Psoriatic arthritis Tobacco dependence syndrome Surgical History (Reviewed 04/18/22 @ 11:21 by Param Schmitt ([facility]), GENETICS PHYSICIAN) History of cholecystectomy History of hysterectomy History of tubal ligation Social History (Reviewed 04/18/22 @ 11:21 by Param Schmitt ([facility]), GENETICS PHYSICIAN) Smoking Status: Current every day smoker tobacco type: cigarettes packs per day: 1 alcohol intake: never counseling provided: none substance use type: denies use current occupational status: other Travel in the last 8 weeks: Inside the [place] ROS Obtained: Yes All systems reviewed & no additional complaints except as documented Constitutional Constitutional: Reports system reviewed and no additional complaints, except as documented and Reports fever(s) Eyes Eyes: Reports system review
[2022-04-18 11:31] VITALS: BP 121/90; PULSE 89; RESP 20; TEMP 36.8; O2SAT 99
== END 2022-04-18 11:32 | disposition home or self-care (01) ==
PROVIDERS: Emergency Provider Nurse Practitioner Family; PCP Physician Assistant
DX: J10.1 Influenza due to other identified influenza virus with other respiratory manifestations (principal)
CPT/HCPCS: 87804; 99212; G0463

== ENCOUNTER 2022-05-04 08:57 | Emergency (ER) | payer OTHER, SELFPAY ==
[2022-05-04 08:58] VITALS: BP 122/69; PULSE 86; RESP 18; TEMP 36.7; O2SAT 99; BMI 38.7
--- NOTE | 2022-05-04 09:10 | HMH.EDGENADL ---
Discharge Plan Disposition Patient Disposition: Home, Self-Care Condition: Fair Prescriptions Prescriptions: No Action methylprednisolone 4 mg tablets,dose pack See Rx Instructions PO PER PKG DIR Qty: 21 0RF Rx Instructions: PO PER PKG DIR amoxicillin-pot clavulanate 875-125 mg tablet 1 tab PO BID Qty: 14 0RF ondansetron 4 mg tablet,disintegrating 4 mg PO Q8H Qty: 20 0RF alpfvqefnzsvmma-mjqualejz-QA [Bromfed DM] 2-30-10 mg/5 mL syrup 7.5 ml PO Q4-6H PRN (Reason: sinus symptoms) Qty: 200 0RF ezpmarwexh-unvqvdpkxk-vle-cod [Fioricet with Codeine] 02-178-92-30 mg capsule 1 cap PO Q4H PRN (Reason: pain) Qty: 14 0RF Referrals Follow up/Referrals: Abner Marshall MD [Primary Care Provider] - See instructions Activity Restrictions/Add. Instructions Additional Instructions/Restrictions: You have been evaluated for sore throat, headache. You have been diagnosed with COVID-19. Please take acetaminophen for aches and pains. Motrin as needed for breakthrough pain or fever. Stay hydrated. Follow-up with your primary care doctor for symptom recheck. Return to the emergency department at once for any new or worsening symptoms, difficulty breathing or other concerns. Clinical Impressions Clinical Impression: COVID-19 Stand Alone Forms Stand Alone Forms: Work/School Release Instructions Patient Instructions: DI for COVID-19 (Suspected or Confirmed ), Coronavirus Disease 2019 Discharge ED Provider: Aniya Rainey Adult HPI General Chief complaint: Headache Stated complaint: headache jaw pain v/d congestion ear pain Time Seen by Provider: 05/04/22 09:00 History of Present Illness HPI narrative: 41-year-old female presenting to the emergency department with headache, sore throat, congestion, jaw pain. Symptoms started yesterday. When she woke up, she felt generally unwell. She had congestion and a large amount of rhinorrhea. She has a headache that is described as constant and throbbing, previously was located near her temples. Today it is radiating from her temples to the back of her head and down the back of her neck. She has been trying Tylenol and Motrin. She has a sore throat, both sides. Hurts to swallow. She also has pain radiating from her temples toward her jaw on both sides. Sitting up and taking medication makes his symptoms better. Laying down makes them worse. She was evaluated at Dr. Marshall's office yesterday where she was diagnosed with a double ear infection. Given prescription for Augmentin. Given steroids. [place] better temporarily. No cough or shortness of breath. No abdominal pain. No pain with neck motion. She suffers from migraines in the past, but has not had a headache like this in some time. Headache was not sudden or maximal. Not worse headache of life Related Data Previous Rx's Medication Instructions Recorded amoxicillin 875 mg-potassium 1 tab PO BID #14 tabs 05/03/22 clavulanate 125 mg tablet methylprednisolone 4 mg tablets in See Rx Instructions PO PER PKG DIR 05/03/22 a dose pack #21 tabs ondansetron 4 mg disintegrating 4 mg PO Q8H #20 tabs 05/03/22 tablet mcomlerldzlpsqx-tqeugytixpmvcxz-AY 7.5 ml PO Q4-6H PRN sinus symptoms 05/04/22 2 mg-30 mg-10 mg/5 mL oral syrup #200 mL (Bromfed DM) butalbital 50 mg-acetaminophen 300 1 cap PO Q4H PRN pain #14 caps 05/04/22 mg-caffeine 40 mg-codeine 30 mg cap (Fioricet with Codeine) Allergies Allergy/AdvReac Type Severity Reaction Status Date / Time codeine Allergy Unknown Verified 05/03/22 13:50 latex Allergy Unknown Verified 05/03/22 13:50 acetaminophen [From Vicodin] Allergy Verified 05/03/22 13:50 hydrocodone Allergy Hives Verified 05/03/22 13:50 rofecoxib [From Vioxx] Allergy Verified 05/03/22 13:50 PFSH PFSH Medical History BMI 39.0-39.9,adult Breast cancer Dyspnea Hx of deep venous thrombosis Insomnia Obesity (BMI
[2022-05-04 09:12] LABS: Influenza A, PCR Not Detected (NotDetected); Influenza B, PCR Not Detected (NotDetected)
[2022-05-04 09:22] LABS: Strep Scrn Group A (Rapid) Negative (Negative)
[2022-05-04 09:26] LABS: Basophils # 0.1 K/mm3 (0-0.2); Basophils % 1.1 % (0.1-2.0); Eosinophils # 0.1 K/mm3 (0.0-0.4); Hematocrit 45.1 % (37.0-47.0); Hemoglobin 14.2 g/dL (12.2-16.2); Lymphocytes # 1.8 K/mm3 (0.7-4.5); Lymphocytes % 19.1 % (10-50); Mean Corpuscular HGB Conc 31.4 g/dL (31.8-35.4); Mean Corpuscular Hemoglobin 27.3 pg (27.0-31.2); Mean Corpuscular Volume 86.9 fl (81-99); Mean Platelet Volume 8.1 fl (7.4-10.4); Monocytes # 0.7 K/mm3 (0.1-1.0); Monocytes % 7.3 % (1.7-9.3); Neutrophils # 6.6 K/mm3 (1.8-7.8); Neutrophils % 71.5 % (37.0-80.0); Platelet Count 311 K/mm3 (142-424); Red Blood Count 5.19 M/mm3 (4.20-5.40); Red Cell Distribution Width 15.1 % (11.5-17.5); White Blood Count 9.2 K/mm3 (4.8-10.8)
[2022-05-04 09:28] LABS: Chloride 109 mmol/L (98-107); Sodium 141 mmol/L (136-145)
[2022-05-04 09:29] LABS: Potassium 3.9 mmoL/L (3.5-5.1)
[2022-05-04 09:31] VITALS: BP 114/60
[2022-05-04 09:31] LABS: Alanine Aminotransferase 35 U/L (12-78); Albumin Level 4.4 g/dl (3.5-5.0); Albumin/Globulin Ratio 1.7 (1.1-1.8); Alkaline Phosphatase 54 U/L (38-126); Anion Gap 11.9 mEq/L (5-15); Aspartate Amino Transferase 36 U/L (14-36); Bilirubin,Total 0.2 mg/dl (0.2-1.3); Blood Urea Nitrogen 12 mg/dl (7-17); Carbon Dioxide 24 mmol/L (22.0-30.0); Creatinine Clearance Estimated 249 mL/min (50-200); Estimated Glomerular Filt Rate 135 ml/min (>60); GFR (African American) 163 ML/MIN (>60); Globulin 2.6 g/dL (1.3-3.2)
[2022-05-04 09:32] LABS: Calcium 9.1 mg/dl (8.4-10.2); Glucose 109 mg/dl (74-100)
[2022-05-04 09:33] LABS: Coronavirus 19, PCR Detected (NotDetected)
[2022-05-04 10:01] VITALS: BP 109/66; PULSE 76; O2SAT 98
--- NOTE | 2022-05-04 10:06 | PC.NURSE ---
patient ambulatory to and from restroom without complications
[2022-05-04 10:31] VITALS: BP 110/42; PULSE 65; RESP 18; O2SAT 98
[2022-05-04 10:44] VITALS: BP 110/42; PULSE 65; RESP 18; TEMP 36.7; O2SAT 98
== END 2022-05-04 10:44 | disposition home or self-care (01) ==
PROVIDERS: Emergency Provider Emergency Medicine; PCP Emergency Medicine
DX: U07.1 COVID-19 (principal); J02.9 Acute pharyngitis, unspecified; H92.09 Otalgia, unspecified ear; R68.84 Jaw pain; R53.81 Other malaise; M19.90 Unspecified osteoarthritis, unspecified site; R51.9 Headache, unspecified; L40.50 Arthropathic psoriasis, unspecified; G47.00 Insomnia, unspecified; E66.9 Obesity, unspecified; Z79.52 Long term (current) use of systemic steroids; Z79.899 Other long term (current) drug therapy; Z88.5 Allergy status to narcotic agent; Z88.6 Allergy status to analgesic agent; Z88.8 Allergy status to other drugs, medicaments and biological substances; Z91.040 Latex allergy status; Z68.39 Body mass index [BMI] 39.0-39.9, adult; Z86.718 Personal history of other venous thrombosis and embolism; Z85.3 Personal history of malignant neoplasm of breast
CPT/HCPCS: 80053; 85025; 87430; 96361; 96374; 99285; C9803; U0003; U0005

== ENCOUNTER 2022-07-03 13:26 | Emergency (ER) | payer OTHER, SELFPAY ==
--- NOTE | 2022-07-03 14:29 | EXP.UTC ---
Discharge Plan Disposition Patient Disposition: Home, Self-Care Condition: Good Prescriptions Prescriptions: New prednisone 10 mg tablet 10 mg PO DIRECTED 9 Days Qty: 21 0RF Rx Instructions: Take 4 tablets daily for 3 days, then take 2 tablets daily for 3 days, then take 1 tablet daily for 3 days, then stop. acyclovir 800 mg tablet 800 mg PO 5XDAY 7 Days Qty: 35 0RF Rx Instructions: while awake; give 5 doses in 24 hours Referrals Follow up/Referrals: Maribel Mccall PA [Primary Care Provider] - See instructions Activity Restrictions/Add. Instructions Additional Instructions/Restrictions: Drink plenty of fluids. Take tylenol or ibuprofen for pain. Take the medications as directed. Keep your appointment with Maribel. GO TO THE ER FOR ANY WORSENING SYMPTOMS Clinical Impressions Clinical Impression: Burning sensation of skin Instructions Patient Instructions: DI for Shingles, Prednisone, Acyclovir Discharge ED Provider: Moses Mcginnis [facility] General Stated complaint: Pain on left side Time Seen by Provider: 07/03/22 14:29 History of Present Illness Provider Complaint: She reports that she has had a burning sensation of her left upper back for the past 2 days. She is afraid that she has shingles. She denies any rash so far. Related Data Previous Rx's Medication Instructions Recorded acyclovir 800 mg tablet 800 mg PO 5XDAY 7 days #35 tabs 07/03/22 prednisone 10 mg tablet 10 mg PO DIRECTED 9 days #21 07/03/22 tabs Allergies Allergy/AdvReac Type Severity Reaction Status Date / Time codeine Allergy Unknown Verified 07/03/22 14:46 latex Allergy Unknown Verified 07/03/22 14:46 acetaminophen [From Vicodin] Allergy Verified 07/03/22 14:46 hydrocodone Allergy Hives Verified 07/03/22 14:46 rofecoxib [From Vioxx] Allergy Verified 07/03/22 14:46 [facility] Disclaimer: The information contained in this section may have been updated after the patient was seen, as this information can be updated by other users. Medical History BMI 39.0-39.9,adult Breast cancer Dyspnea Hx of deep venous thrombosis Insomnia Obesity (BMI 30-39.9) Psoriasis Psoriatic arthritis Tobacco dependence syndrome Surgical History History of cholecystectomy History of hysterectomy History of tubal ligation Social History Smoking Status: Current every day smoker tobacco type: cigarettes packs per day: 1 alcohol intake: never counseling provided: none substance use type: denies use current occupational status: other Travel in the last 8 weeks: Inside the [place] ROS Obtained: Yes All systems reviewed & no additional complaints except as documented Constitutional Constitutional: Reports body ache, Reports chills and Denies fever(s) Eyes Eyes: Denies eye discharge ENT Ears, Nose, Mouth, and Throat: Denies dizziness, Denies otalgia and Denies sore throat Cardiovascular Cardiovascular: Denies chest pain Respiratory Respiratory: Denies shortness of breath, Denies chest congestion, Denies cough, Denies stridor and Denies wheezing Gastrointestinal Gastrointestingal: Denies nausea or vomiting Musculoskeletal Musculoskeletal: Reports system reviewed and no additional complaints, except as documented and Denies arthralgias Integumentary/Breasts Skin/Breast: Reports as per HPI Neurologic Neurologic: Reports as per HPI, Denies dizziness and Reports paresthesias Allergic/Immunologic Allergic/Immunologic: Denies wheezing Physical Exam General General appearance: alert and in no apparent distress Head Head exam: atraumatic, normocephalic and normal inspection Eye Eye exam: Present normal appearance, PERRL and EOMI ENT ENT exam: Present normal exam, normal oropharynx, mucous membranes moist, TM's normal [place]
[2022-07-03 14:40] VITALS: BP 142/51; PULSE 74; RESP 20; TEMP 36.7; O2SAT 100; BMI 39.1
[2022-07-03 15:34] VITALS: BP 142/51; PULSE 74; RESP 20; TEMP 36.7; O2SAT 100
== END 2022-07-03 15:33 | disposition home or self-care (01) ==
PROVIDERS: Emergency Provider Nurse Practitioner Family; PCP Physician Assistant
DX: R20.8 Other disturbances of skin sensation (principal)
CPT/HCPCS: 99212; G0463

== ENCOUNTER → 2022-07-08 11:00 | Outpatient (CLI) | payer OTHER, SELFPAY ==
[2022-07-09 22:15] LABS: Neisseria gonorrhoeae, NAA Negative (Negative)
== END ==
PROVIDERS: PCP Physician Assistant; Visit Provider Physician Assistant
DX: N89.8 Other specified noninflammatory disorders of vagina (principal)
CPT/HCPCS: 87491; 87591

== ENCOUNTER 2022-12-10 08:31 | Emergency (ER) | payer OTHER, SELFPAY ==
[2022-12-10 08:35] VITALS: BP 120/63; PULSE 90; RESP 19; TEMP 37; O2SAT 98; BMI 40.0
[2022-12-10 08:53] LABS: UTC Strep Screen (Rapid) Negative (Negative)
--- NOTE | 2022-12-10 08:55 | EXP.UTC ---
Discharge Plan Disposition Patient Disposition: Home, Self-Care Condition: Good Prescriptions Prescriptions: New amoxicillin-pot clavulanate 875-125 mg Tablet 1 tab PO Q12H Qty: 20 0RF fluticasone propionate [Flonase Allergy Relief] 50 mcg/actuation spray,suspension 1 - 2 spray intranasal DAILY Qty: 16 0RF Rx Instructions: administer into each nostril daily methylprednisolone [Medrol (Adolfo)] 4 mg tablets,dose pack See Rx Instructions .Route .COMPLEX 6 Days Qty: 21 0RF Rx Instructions: taper pack; No Action valacyclovir [Valtrex] 1 gram tablet 1,000 mg PO BID Qty: 20 0RF phentermine [Adipex-P] 37.5 mg tablet 37.5 mg PO DAILY Qty: 30 0RF Rx Instructions: must administer 30 minutes before or 1-2 hours after breakfast trifluridine 1 % drops 1 drp ophthalmic (eye) Q2H 7 Days Qty: 7.5 0RF Rx Instructions: administer 9 doses per day while awake methylprednisolone [Medrol (Adolfo)] 4 mg tablets,dose pack 4 mg PO PER PKG DIR 6 Days Qty: 21 0RF prednisone 10 mg tablet 10 mg PO DIRECTED 9 Days Qty: 21 0RF Rx Instructions: Take 4 tablets daily for 3 days, then take 2 tablets daily for 3 days, then take 1 tablet daily for 3 days, then stop. acyclovir 800 mg tablet 800 mg PO 5XDAY 7 Days Qty: 35 0RF Rx Instructions: while awake; give 5 doses in 24 hours Referrals Follow up/Referrals: Maribel Mccall PA [Primary Care Provider] - See instructions Activity Restrictions/Add. Instructions Additional Instructions/Restrictions: *Monitor Temp, Over the counter Motrin or Tylenol as directed/as needed Tylenol every 4 hours and Motrin every 6 hours (as long as your family doctor has told you that you can take it) for fever or pain. and straight to ER if unable to lower temp less than 101.0 after medication given *Warm salt water gargles may help to soothe the throat *Throat Lozenges? *Warm fluids like tea with honey may help to soothe the throat? *Sleep elevated *Humidifier/Vaporizer Take medication as prescribed Your throat swab was sent for culture. Those results are typically sent to your primary care. Be sure to follow up in 2-3 days with your family doctor/primary care physician if no improvement so they can review those result and treat if necessary. If you don?t have a primary care doctor, I recommend you get one but in the mean time, you will have to return to a walk in clinic Follow up IMMEDIATELY for new or worsening symptoms or no Noticeable improvement over the next 48-72 hours. 911 for difficulty breathing or swallowing Clinical Impressions Clinical Impression: Otitis media Qualifiers: Otitis media type: unspecified Laterality: left Qualified Code(s): H66.92 - Otitis media, unspecified, left ear Instructions Patient Instructions: Ear Infections (Alternative Therapy), Sore Throat, Middle Ear Infection, DI for Sinusitis Discharge ED Provider: Michelle Baugh [facility] HPI General Stated complaint: sore throat, congestion, lung pain Mode of Arrival: Ambulatory Source of Information: Patient Limitations: No Limitations Time Seen by Provider: 12/10/22 08:55 Description of Symptoms (Recalled from Triage Doc. by RN): PATIENT C/O SORE THROAT, CHEST CONGESTION AND COUGH X 2 DAYS HEENT Symptoms (Recalled from RN notes): Yes Resp Symptoms (Recalled from RN notes): Yes Skin Symptoms (Recalled from RN notes): No MS Symptoms (Recalled from RN notes): No Functional Status (Recalled from RN notes): WNL History of Present Illness Provider Complaint: Patient states that she has been having pain in her ears for about a week, sore throat, cough and chest congestion for the last couple of days that has continued to get worse so today when she wasnt feeling any better she came in to get checked Related Data Previous Rx's Medication Instructions Recorded acyclovir 800 mg tablet 800 mg PO 5XDAY 7 days #35 ta
[2022-12-10 09:11] VITALS: BP 120/63; PULSE 90; RESP 19; TEMP 37; O2SAT 98
== END 2022-12-10 09:19 | disposition home or self-care (01) ==
PROVIDERS: Emergency Provider Nurse Practitioner; PCP Physician Assistant
DX: H66.92 Otitis media, unspecified, left ear (principal); R05.9 Cough, unspecified; R07.0 Pain in throat; F17.210 Nicotine dependence, cigarettes, uncomplicated; G47.00 Insomnia, unspecified; E66.9 Obesity, unspecified; Z68.39 Body mass index [BMI] 39.0-39.9, adult
CPT/HCPCS: 87880; 99212; 99214; G0463

== ENCOUNTER → 2022-12-13 23:27 | Outpatient (CLI) | payer OTHER, SELFPAY ==
[2022-12-13 17:58] LABS: Adenovirus,PCR Not Detected (NotDetected); Bordetella Pertussis Not Detected (NotDetected); Chlamydophila Pneumoniae, PCR Not Detected (NotDetected); Coronavirus 19, PCR Not Detected (NotDetected); Coronavirus 229E Not Detected (NotDetected); Coronavirus NL63 Not Detected (NotDetected); Coronavirus OC43 Not Detected (NotDetected); Coronovirus HKU1,PCR Not Detected (NotDetected); Human Metapneumovirus Not Detected (NotDetected); Influenza A, PCR Not Detected (NotDetected); Influenza AH1, 2009 Not Detected (NotDetected); Influenza AH1, PCR Not Detected (NotDetected); Influenza AH3,PCR Not Detected (NotDetected); Influenza B, PCR Not Detected (NotDetected); Mycoplasma Pneumoniae, PCR Not Detected (NotDetected); Parainfluenza 1, PCR Not Detected (NotDetected); Parainfluenza 2, PCR Not Detected (NotDetected); Parainfluenza 3, PCR Not Detected (NotDetected); Parainfluenza 4, PCR Not Detected (NotDetected); Respiratory Syncytial Virus Not Detected (NotDetected)
[2022-12-13 23:33] LABS: Rhinovirus/Enterovirus Detected (NotDetected)
== END ==
PROVIDERS: PCP Student in an Organized Health Care Education/Training Program; Visit Provider Student in an Organized Health Care Education/Training Program
DX: R05.9 Cough, unspecified (principal); B34.1 Enterovirus infection, unspecified
CPT/HCPCS: 87581; 87632; 87798

== ENCOUNTER → 2022-12-22 13:52 | Outpatient (CLI) | payer OTHER, SELFPAY ==
[2022-12-22 18:17] LABS: Basophils # 0.1 K/mm3 (0-0.2); Basophils % 0.4 % (0.1-2.0); Eosinophils # 0.3 K/mm3 (0.0-0.4); Eosinophils % 2.4 % (0.1-12.0); Hematocrit 45.3 % (37.0-47.0); Hemoglobin 14.4 g/dL (12.2-16.2); Lymphocytes # 2.2 K/mm3 (0.7-4.5); Lymphocytes % 17.4 % (10-50); Mean Corpuscular HGB Conc 31.8 g/dL (31.8-35.4); Mean Corpuscular Hemoglobin 27.3 pg (27.0-31.2); Mean Corpuscular Volume 85.9 fl (81-99); Mean Platelet Volume 7.9 fl (7.4-10.4); Monocytes # 0.9 K/mm3 (0.1-1.0); Monocytes % 6.8 % (1.7-9.3); Neutrophils # 9.3 K/mm3 (1.8-7.8); Platelet Count 310 K/mm3 (142-424); Red Blood Count 5.27 M/mm3 (4.20-5.40); Red Cell Distribution Width 14.5 % (11.5-17.5); White Blood Count 12.8 K/mm3 (4.8-10.8)
[2022-12-22 18:58] LABS: Alanine Aminotransferase 40 U/L (12-78); Albumin Level 4.5 g/dl (3.5-5.0); Albumin/Globulin Ratio 1.7 (1.1-1.8); Alkaline Phosphatase 64 U/L (38-126); Anion Gap 14.1 mEq/L (5-15); Aspartate Amino Transferase 32 U/L (14-36); Bilirubin,Total 0.3 mg/dl (0.2-1.3); Blood Urea Nitrogen 17 mg/dl (7-17); Calcium 9.9 mg/dl (8.4-10.2); Carbon Dioxide 24 mmol/L (22.0-30.0); Chloride 107 mmol/L (98-107); Chol/HDL Ratio 4.6 (1-3.5); Cholesterol 277 mg/dl (140-200); Estimated Glomerular Filt Rate 109 ml/min (>60); GFR (African American) 131 ML/MIN (>60); Globulin 2.7 g/dL (1.3-3.2); Glucose 174 mg/dl (74-100); HDL Cholesterol 60 mg/dl (40-60); Potassium 4.1 mmoL/L (3.5-5.1); Sodium 141 mmol/L (136-145); Total Protein,Serum 7.2 g/dl (6.3-8.2); Triglycerides 302 mg/dl (30-150); VLDL Cholesterol 60 mg/dL (0-40)
[2022-12-22 19:09] LABS: Direct LDL Cholesterol 158.05 mg/dL (100-129)
[2022-12-22 19:15] LABS: 25-OH Vitamin D, Total 15.6 ng/mL (30-100)
[2022-12-22 19:17] LABS: Hemoglobin A1C 6.2 % (4.0-6.0)
== END ==
PROVIDERS: PCP Student in an Organized Health Care Education/Training Program; Visit Provider Student in an Organized Health Care Education/Training Program
DX: R42 Dizziness and giddiness (principal); E55.9 Vitamin D deficiency, unspecified; Z79.899 Other long term (current) drug therapy
CPT/HCPCS: 80053; 80061; 82306; 83036; 85025

== ENCOUNTER → 2023-01-10 13:36 | Outpatient (CLI) | payer OTHER, SELFPAY ==
--- NOTE | 2023-01-10 13:37 | CT_ITS ---
FINAL REPORT CLINICAL HISTORY: dizziness, falls, vertigo COMPARISON: 12/12/2020 FINDINGS: Axial images of the head were obtained without contrast. Coronal and sagittal reformatted images were also obtained.This study was performed with techniques to keep radiation doses as low as reasonably achievable (ALARA). Individualized dose reduction techniques using automated exposure control or adjustment of mA and/or kV according to the patient's size were employed. There is no evidence of intracranial hemorrhage or mass. The ventricular size is within normal limits. There is no evidence of shift of the midline structures. No abnormal extra axial fluid collection is identified. No skull abnormality is seen on the bone window images. There are retention cysts or polyps in the right maxillary and sphenoid sinuses. IMPRESSION: No acute intracranial abnormality. Reviewed, Interpreted and Dictated by Jj Murray III, MD Transcribed by Reba Parrish Authenticated and [facility]
== END ==
PROVIDERS: PCP Student in an Organized Health Care Education/Training Program; Visit Provider Student in an Organized Health Care Education/Training Program
DX: R42 Dizziness and giddiness (principal); W19.XXXA Unspecified fall, initial encounter
CPT/HCPCS: 70450

== ENCOUNTER → 2023-02-10 08:00 | Outpatient (CLI) | payer OTHER, SELFPAY ==
--- NOTE | 2023-02-10 08:01 | MR_ITS ---
FINAL REPORT CLINICAL HISTORY: Rule out Meniere's disease. HEDACHE, DIZZINESS. SYMPTOMS [id number] COMPARISON: None FINDINGS: Multiplanar MR imaging of the brain was performed without and with contrast. There is no evidence of intracranial hemorrhage or mass. No abnormal extra-axial fluid collection is seen. The ventricular size is within normal limits. There is no evidence of shift of the midline structures. The posterior fossa and brainstem have an unremarkable appearance. No area of abnormal restricted diffusion is identified. No abnormal contrast enhancement is seen. Normal major vessel vascular flow voids are noted. Note is made of a right maxillary polyp or retention cyst. IMPRESSION: No acute intracranial abnormality identified. Reviewed, Interpreted and Dictated by Jj Murray III, MD Transcribed by Reba Parrish Authenticated and [facility]
== END ==
PROVIDERS: PCP Student in an Organized Health Care Education/Training Program; Visit Provider Nurse Practitioner
DX: R42 Dizziness and giddiness (principal); H93.19 Tinnitus, unspecified ear; Z83.52 Family history of ear disorders
CPT/HCPCS: 70553; A9576

== ENCOUNTER → 2023-02-24 10:23 | Outpatient (POV) | payer OTHER, SELFPAY | PROVIDERS: Visit Provider Specialist/Technologist | DX: Z00.00 Encounter for general adult medical examination without abnormal findings (principal) ==

== ENCOUNTER 2023-10-25 11:58 | Outpatient (CLI) | payer OTHER, SELFPAY ==
--- NOTE | 2023-10-25 12:13 | XR_ITS ---
FINAL REPORT CLINICAL HISTORY: knee pain, no injury COMPARISON: 01/04/2022 FINDINGS: LEFT KNEE 3 views of the left knee were obtained. There is no acute fracture or dislocation. There is mild medial and lateral compartment joint space narrowing. There is no joint effusion. Soft tissues are unremarkable. IMPRESSION: Mild degenerative changes without acute bony abnormality. Reviewed, Interpreted and Dictated by Martinez Fernandez MD Transcribed by Fiona Myers Authenticated and [facility]
--- NOTE | 2023-10-25 12:13 | XR_ITS ---
FINAL REPORT CLINICAL HISTORY: knee pain, no injury FINDINGS: RIGHT KNEE 3 views of the right knee were obtained. There is no acute fracture or dislocation. There is mild medial and lateral compartment joint space narrowing. There is no joint effusion. Soft tissues are unremarkable. IMPRESSION: Mild degenerative changes without acute bony abnormality. Reviewed, Interpreted and Dictated by Martinez Fernandez MD Transcribed by Fiona Myers Authenticated and [facility]
[2023-10-25 12:20] LABS: Basophils # 0.1 K/mm3 (0-0.2); Basophils % 1.1 % (0.1-2.0); Eosinophils # 0.3 K/mm3 (0.0-0.4); Eosinophils % 3.3 % (0.1-12.0); Hematocrit 45.5 % (37.0-47.0); Hemoglobin 14.9 g/dL (12.2-16.2); Lymphocytes # 2.1 K/mm3 (0.7-4.5); Lymphocytes % 23.8 % (10-50); Mean Corpuscular HGB Conc 32.7 g/dL (31.8-35.4); Mean Corpuscular Hemoglobin 27.7 pg (27.0-31.2); Mean Corpuscular Volume 84.7 fl (81-99); Mean Platelet Volume 7.8 fl (7.4-10.4); Monocytes # 0.5 K/mm3 (0.1-1.0); Monocytes % 5.6 % (1.7-9.3); Neutrophils # 5.8 K/mm3 (1.8-7.8); Neutrophils % 66.3 % (37.0-80.0); Platelet Count 325 K/mm3 (142-424); Red Blood Count 5.37 M/mm3 (4.20-5.40); Red Cell Distribution Width 15.6 % (11.5-17.5); White Blood Count 8.8 K/mm3 (4.8-10.8)
[2023-10-25 12:34] LABS: Chloride 109 mmol/L (98-107)
[2023-10-25 12:35] LABS: Potassium 4.2 mmoL/L (3.5-5.1); Sodium 140 mmol/L (136-145)
[2023-10-25 12:37] LABS: Alanine Aminotransferase 35 U/L (12-78); Albumin Level 4.3 g/dl (3.5-5.0); Albumin/Globulin Ratio 1.6 (1.1-1.8); Alkaline Phosphatase 63 U/L (38-126); Anion Gap 12.2 mEq/L (5-15); Aspartate Amino Transferase 37 U/L (14-36); Bilirubin,Total 0.5 mg/dl (0.2-1.3); Blood Urea Nitrogen 16 mg/dl (7-17); Carbon Dioxide 23 mmol/L (22.0-30.0); Estimated Glomerular Filt Rate 91 ml/min (>60); GFR (African American) 110 ML/MIN (>60); Globulin 2.7 g/dL (1.3-3.2)
[2023-10-25 12:38] LABS: Calcium 9.7 mg/dl (8.4-10.2); Chol/HDL Ratio 5.3 (1-3.5); Cholesterol 283 mg/dl (140-200); Glucose 123 mg/dl (74-100); HDL Cholesterol 53 mg/dl (40-60); Triglycerides 208 mg/dl (30-150); VLDL Cholesterol 42 mg/dL (0-40)
[2023-10-25 12:44] LABS: C-Reactive Protein 8.1 mg/L (0-4)
[2023-10-25 12:47] LABS: NT Pro Brain Natriuretic Pep. < 20.0 pg/mL (0-125)
[2023-10-25 13:04] LABS: D-Dimer 0.35 ug/mL (0.0-0.5)
[2023-10-25 13:08] LABS: Thyroid Stimulating Hormone 1.48 uIU/mL (0.465-4.68)
[2023-10-25 13:13] LABS: Hemoglobin A1C 6.6 % (4.0-6.0)
[2023-10-25 13:36] LABS: 25-OH Vitamin D, Total 19.3 ng/mL (30-100)
[2023-10-25 14:47] LABS: Erythrocyte Sedimentation Rate 11 mm/hr (0-20)
[2023-10-26 13:34] LABS: Anti-Centromere B Antibodies <0.2 AI (0.0-0.9); Anti-DNA (DS) Ab Qn 4 IU/mL (0-9); Anti-Jo-1 <0.2 AI (0.0-0.9); Anti-Smith Antibody <0.2 AI (0.0-0.9); Antichromatin Antibodies <0.2 AI (0.0-0.9); Antiscleroderma-70 Antibodies <0.2 AI (0.0-0.9); RNP Antibodies <0.2 AI (0.0-0.9); Sjogren's Anti-SS-A <0.2 AI (0.0-0.9); Sjogren's Anti-SS-B <0.2 AI (0.0-0.9)
[2023-10-26 15:12] LABS: RA Latex Turbid. <10.0 IU/mL (<14.0)
== END 2023-10-25 23:59 | disposition home or self-care (01) ==
LOC: LAB 11:59
PROVIDERS: PCP Student in an Organized Health Care Education/Training Program; Visit Provider Student in an Organized Health Care Education/Training Program
DX: M25.561 Pain in right knee (principal); M25.562 Pain in left knee; M25.50 Pain in unspecified joint; R60.0 Localized edema; E55.9 Vitamin D deficiency, unspecified; E66.9 Obesity, unspecified; Z86.718 Personal history of other venous thrombosis and embolism; Z13.220 Encounter for screening for lipoid disorders; Z13.29 Encounter for screening for other suspected endocrine disorder; Z13.21 Encounter for screening for nutritional disorder; Z68.41 Body mass index [BMI] 40.0-44.9, adult
CPT/HCPCS: 36415; 73562; 80053; 80061; 82306; 83036; 83880; 84443; 85025; 85378; 85651; 86140; 86225; 86235; 86431

== ENCOUNTER 2024-02-03 09:47 | Outpatient (CLI) | payer OTHER, SELFPAY ==
--- NOTE | 2024-02-03 09:47 | CA_ITS ---
FINAL REPORT TECHNIQUE: Left lower extremity venous duplex was performed with augmentation and compression. CLINICAL HISTORY: left lower extremity edema X 1 yr, smoker, ASA sometimes, DVT 20 yrs ago with 5' 7 238lb COMPARISON: None FINDINGS: Proper flow is seen throughout the deep venous system, although the peroneal veins are not well-visualized. There is no evidence of deep venous thrombosis. IMPRESSION: Peroneal veins of the calf are not well-visualized on this exam. No evidence of deep venous thrombosis. Reviewed, Interpreted and Dictated by Martinez Fernandez MD Transcribed by Reba Parrish Authenticated and [facility]
== END 2024-02-03 23:59 | disposition home or self-care (01) ==
LOC: RT 09:47
PROVIDERS: PCP Student in an Organized Health Care Education/Training Program; Visit Provider Student in an Organized Health Care Education/Training Program
DX: R60.0 Localized edema (principal); Z86.718 Personal history of other venous thrombosis and embolism
CPT/HCPCS: 93971

== ENCOUNTER 2024-03-01 12:55 | Outpatient (CLI) | payer OTHER, SELFPAY ==
--- NOTE | 2024-03-01 13:01 | CA_ITS ---
FINAL REPORT TECHNIQUE: Compression yang scale and Doppler evaluation CLINICAL HISTORY: red warm knot LLE, h/o DVT LLE x 19 years ago. Patient states she had several DVT's in the past related to pregnancies. DM, smoker. Takes 325mg ASA daily. Patient states a knot appeared on the anterior aspect of her medial left calf 02/27/24. Today it's red and hot to touch. COMPARISON: None FINDINGS: Femoral and popliteal veins show normal compressibility and flow. Visualized portion of the calf veins are patent by Doppler exam. There is superficial vein thrombosis noted in the lower greater saphenous vein, consistent with thrombophlebitis. Thrombus is visible in a superficial vein, with lack of compressibility. IMPRESSION: No evidence of left lower extremity deep venous thrombosis. Thrombophlebitis of the lower greater saphenous vein. Results were called to Mamie at [facility]. Reviewed, Interpreted and Dictated by Sean Tuttle MD Transcribed by Reba Parrish Authenticated and [facility]
== END 2024-03-01 23:59 | disposition home or self-care (01) ==
LOC: RT 12:56
PROVIDERS: PCP Student in an Organized Health Care Education/Training Program; Visit Provider Student in an Organized Health Care Education/Training Program
DX: R22.42 Localized swelling, mass and lump, left lower limb (principal); Z86.718 Personal history of other venous thrombosis and embolism
CPT/HCPCS: 93971

== ENCOUNTER 2024-04-26 14:14 | Outpatient (CLI) | payer OTHER, SELFPAY ==
[2024-04-26 18:28] LABS: Basophils # 0.1 K/mm3 (0-0.2); Eosinophils # 0.2 K/mm3 (0.0-0.4); Eosinophils % 2.4 % (0.1-12.0); Hematocrit 45.1 % (37.0-47.0); Hemoglobin 14.7 g/dL (12.2-16.2); Lymphocytes # 2.4 K/mm3 (0.7-4.5); Lymphocytes % 25.9 % (10-50); Mean Corpuscular HGB Conc 32.6 g/dL (31.8-35.4); Mean Corpuscular Hemoglobin 27.1 pg (27.0-31.2); Mean Corpuscular Volume 83.1 fl (81-99); Mean Platelet Volume 8.1 fl (7.4-10.4); Monocytes # 0.6 K/mm3 (0.1-1.0); Monocytes % 6.7 % (1.7-9.3); Neutrophils % 64.1 % (37.0-80.0); Platelet Count 364 K/mm3 (142-424); Red Blood Count 5.43 M/mm3 (4.20-5.40); Red Cell Distribution Width 16.3 % (11.5-17.5); White Blood Count 9.4 K/mm3 (4.8-10.8)
[2024-04-26 18:59] LABS: Alanine Aminotransferase 21 U/L (12-78); Albumin Level 4.5 g/dl (3.5-5.0); Albumin/Globulin Ratio 1.8 (1.1-1.8); Alkaline Phosphatase 61 U/L (38-126); Anion Gap 17.8 mEq/L (5-15); Aspartate Amino Transferase 24 U/L (14-36); Bilirubin,Total 0.5 mg/dl (0.2-1.3); Blood Urea Nitrogen 16 mg/dl (7-17); Calcium 9.8 mg/dl (8.4-10.2); Carbon Dioxide 19 mmol/L (22.0-30.0); Chloride 107 mmol/L (98-107); Chol/HDL Ratio 4.1 (1-3.5); Cholesterol 244 mg/dl (140-200); Estimated Glomerular Filt Rate 108 ml/min (>60); GFR (African American) 131 ML/MIN (>60); Globulin 2.5 g/dL (1.3-3.2); Glucose 85 mg/dl (74-100); HDL Cholesterol 59 mg/dl (40-60); Potassium 4.8 mmoL/L (3.5-5.1); Sodium 139 mmol/L (136-145); Triglycerides 145 mg/dl (30-150); VLDL Cholesterol 29 mg/dL (0-40)
[2024-04-26 19:09] LABS: Direct LDL Cholesterol 164.93 mg/dL (100-129)
[2024-04-26 19:14] LABS: Hemoglobin A1C 5.7 % (4.0-6.0)
[2024-04-26 19:16] LABS: 25-OH Vitamin D, Total 18.8 ng/mL (30-100)
[2024-04-26 22:05] LABS: HIV (1&2) Antibody Rapid NONREACTIVE (NONREACTIVE)
[2024-04-28 07:14] LABS: HCV Ab Non Reactive (Non Reactive)
== END 2024-04-26 23:59 | disposition home or self-care (01) ==
LOC: LAB.DROPOF 04-27 08:03
PROVIDERS: PCP Student in an Organized Health Care Education/Training Program; Visit Provider Student in an Organized Health Care Education/Training Program
DX: R05.9 Cough, unspecified (principal); E11.9 Type 2 diabetes mellitus without complications; E55.9 Vitamin D deficiency, unspecified; Z11.59 Encounter for screening for other viral diseases; Z11.4 Encounter for screening for human immunodeficiency virus [HIV]; Z79.85 Long-term (current) use of injectable non-insulin antidiabetic drugs
CPT/HCPCS: 80050; 80053; 80061; 82306; 83036; 84443; 85025; 86803; 87389; 87635

== ENCOUNTER 2024-07-13 13:31 | Emergency (ER) | payer OTHER, SELFPAY ==
--- NOTE | 2024-07-13 13:38 | CA_ITS ---
FINAL REPORT TECHNIQUE: Compression yang scale and Doppler evaluation CLINICAL HISTORY: LLE knee and calf pain. Denies trauma. Hx of superficial thrombophlebitis 02/2024 LLE. Borderline DM, smoker. Has an appt with vascular surgeon for venous reflux/insufficiency 07/25/24. COMPARISON: 03/01/2024 FINDINGS: Femoral and popliteal veins show normal compressibility and flow. Visualized portion of the calf veins demonstrate superficial venous thrombosis in the mid greater saphenous vein with partial compression. Incidental note is made of a small Aguilar's cyst. IMPRESSION: No evidence of left lower extremity deep venous thrombosis. SVT in the greater saphenous vein. Reviewed, Interpreted and Dictated by Sean Tuttle MD Transcribed by Fiona Myers Authenticated and [facility]
[2024-07-13 14:15] VITALS: BP 119/68; PULSE 88; RESP 18; TEMP 36.6; O2SAT 99; BMI 38.2
--- NOTE | 2024-07-13 14:16 | ED_ITS ---
Discharge Plan Disposition Patient Disposition: Home, Self-Care Condition: Good Prescriptions Prescriptions: New Xarelto 10 mg tablet 10 mg PO DAILY 30 Days Qty: 30 0RF Rx Instructions: for 35 days No Action amoxicillin-pot clavulanate 875-125 mg tablet 1 tab PO BID 10 Days Qty: 20 0RF Skyrizi 150 mg/mL pen injector 150 mg SQ rosuvastatin 20 mg tablet 20 mg PO DAILY Qty: 90 3RF cholecalciferol (vitamin D3) 1,250 mcg (50,000 unit) capsule 1,250 mcg PO WEEKLY Qty: 14 0RF semaglutide 1 mg/dose (4 mg/3 mL) pen injector 1 mg SQ WEEKLY Qty: 3 3RF Referrals Follow up/Referrals: Provider,Referral, [Primary Care Provider] - See instructions Activity Restrictions/Add. Instructions Additional Instructions/Restrictions: Drink plenty of fluids. Take tylenol for pain. Take the medications as directed. Follow up with Maribel to discuss whether you need to continue taking the xarelto. Follow her instructions from there. Follow up with your regular doctor. GO TO THE ER FOR ANY WORSENING SYMPTOMS Clinical Impressions Clinical Impression: Acute superficial venous thrombosis of left lower extremity Stand Alone Forms Stand Alone Forms: Work/School Release Instructions Patient Instructions: Rivaroxaban Print Language Print Language: Lithuanian Discharge ED Provider: Moses Mcginnis [facility] General Stated complaint: Pain, swelling, L leg hist of blood clots Time Seen by Provider: 07/13/24 14:16 History of Present Illness Provider Complaint: She states that for the past 2 days she has had pain and swelling of her left leg below the knee. She denies any injury. She has a history of getting DVT's. She is not currently on anticoagulants. Related Data Home Medications ?Medication ?Instructions ?Recorded ?Confirmed risankizumab-rzaa 150 mg/mL 150 mg SQ 12/15/22 04/26/24 subcutaneous pen injector (Skyrizi) Previous Rx's ?Medication ?Instructions ?Recorded amoxicillin 875 mg-potassium 1 tab PO BID 10 days #20 tabs 04/26/24 clavulanate 125 mg tablet cholecalciferol (vitamin D3) 1,250 1,250 mcg PO WEEKLY #14 caps 04/27/24 mcg (50,000 unit) capsule rosuvastatin 20 mg tablet 20 mg PO DAILY #90 tabs 04/27/24 semaglutide 1 mg/dose (4 mg/3 mL) 1 mg (0.75 mL) SQ WEEKLY #3 mL 04/27/24 subcutaneous pen injector rivaroxaban 10 mg tablet (Xarelto) 10 mg PO DAILY 30 days #30 tabs 07/13/24 Allergies Allergy/AdvReac Type Severity Reaction Status Date / Time codeine Allergy Unknown Verified 04/26/24 13:44 latex Allergy Unknown Verified 04/26/24 13:44 acetaminophen (From Vicodin) Allergy Verified 04/26/24 13:44 hydrocodone Allergy Hives Verified 04/26/24 13:44 rofecoxib (From Vioxx) Allergy Verified 04/26/24 13:44 [facility] Disclaimer: The information contained in this section may have been updated after the patient was seen, as this information can be updated by other users. Medical History Obesity Eczema herpeticum Otosclerosis Mixed hearing loss of left ear Eustachian tube dysfunction Impacted cerumen of right ear Family history of Meniere's disease Dizziness Tinnitus Breast cancer Psoriatic arthritis Obesity (BMI 30-39.9) BMI 39.0-39.9,adult Psoriasis Dyspnea Tobacco dependence syndrome Hx of deep venous thrombosis Insomnia Surgical History History of tubal ligation History of hysterectomy History of cholecystectomy Family History Other Meniere disease Social History Smoking Status: Current every day smoker tobacco type: cigarettes packs per day: 1 alcohol intake: never counseling provided: none substance use type: denies use current occupational status: other Travel in the last 8 weeks: Inside the [place] Have you lived/traveled outside [place] in past 30 days?: No Contact w/someone who lives/traveled outside [place] past 30 days?: No Exposure to someone with infectious disease in past 14 days?: No Do you have a fever (greater than 100.4 F or 38 C)?: No Have you tested positive for COVID-19: No Exposed to someone with COVID-19 in past 14 days?: No Do you have a sore throat?: No Do you have a cough?: No Do you have any weakness?: No Do you have any diarrhea?: No Are you experiencing any unusual bleeding?: No Do you have any muscle aches/pain?: No Do you have any abdominal pain?: No Are you experiencing loss of taste or smell?: No ROS Obtained: Yes All systems reviewed & no additional complaints except as documented Constitutional Constitutional: Denies chills and Denies fever(s) Eyes Eyes: Denies eye discharge ENT Ears, Nose, Mouth, and Throat: Denies dizziness, Denies otalgia and Denies sore throat Cardiovascular Cardiovascular: Denies chest pain Respiratory Respiratory: Denies shortness of breath, Denies chest congestion, Denies cough, Denies stridor and Denies wheezing Gastrointestinal Gastrointestingal: Denies nausea or vomiting Musculoskeletal Musculoskeletal: Reports system reviewed and no additional complaints, except as documented and Denies arthralgias Integumentary/Breasts Skin/Breast: Denies rash Neurologic Neurologic: Denies dizziness and Denies paresthesias Allergic/Immunologic Allergic/Immunologic: Denies wheezing Physical Exam General General appearance: alert and in no apparent distress Head Head exam: atraumatic, normocephalic and normal inspection Eye Eye exam: Present normal appearance, PERRL and EOMI ENT ENT exam: Present normal exam, normal oropharynx, mucous membranes moist, TM's normal bilaterally and normal external ear exam Neck Neck exam: Present normal inspection, full ROM and trachea midline; Absent meningismus or lymphadenopathy Chest Chest inspection: Present normal inspection and symmetric chest wall rise; Absent tenderness Respiratory Respiratory exam: Present normal lung sounds bilaterally; Absent respiratory distress Cardiovascular Cardiovascular exam: Present regular rate and normal rhythm; Absent JVD Abdominal Exam Abdominal exam: Present soft and normal bowel sounds; Absent distention, tenderness or guarding Extremities Exam Extremities exam: Present normal inspection, full ROM and normal capillary refill; Absent calf tenderness Back Exam Back exam: Present normal inspection; Absent tenderness Neurological Exam Neurological exam: Present alert and oriented X3 Psychiatric Psychiatric exam: Present normal affect and normal mood Skin Skin exam: Present warm, dry, intact and normal color Lymphatic Lymphatic Findings: no adenopathy Medical Decision Making Medical Records Medical records reviewed: No I reviewed the patient's medical records. Screening: Per USPSTF and CDC recommendations, given the prevalence of disease in our region, it is our hospital?s policy to screen for HIV and viral Hepatitis for all patients aged 18 and over and those with ongoing risk factors. Levon Inquiry Pt receiving controlled substance: No Orders (Tests/Meds): ORDERS Category Date Time Status CA venous doppler LE LT Stat Y 07/13/24 13:[address] Data ED CT Reviewed: Yes I have reviewed the patient's CT results US Data US Images: Lower Extremity ED US Reviewed: Yes I have reviewed the patient's US results Preliminary Findings: Abnormal Extremity (verbal report states that she has multiple SVT's in that leg. She also has a Aguilar's cyst. )
[2024-07-13 14:53] VITALS: BP 119/68; PULSE 88; RESP 18; TEMP 36.6; O2SAT 99
== END 2024-07-13 14:54 | disposition home or self-care (01) ==
PROVIDERS: Emergency Provider Nurse Practitioner Family
DX: I82.812 Embolism and thrombosis of superficial veins of left lower extremity (principal)
CPT/HCPCS: 93971; 99212; G0381

== ENCOUNTER 2025-03-23 18:16 | Emergency (ER) | payer OTHER, SELFPAY ==
--- OUTSIDE RECORDS SUMMARY | 2025-03-23 18:24 | XMS_ITS | Data Portability ---
Author Organization [facility] Address [address] [place] [address] Assessment No assessment recorded. Plan of Treatment Reminders Order Date Submit Date Provider Last Modified By Organization Details Last Modified Time Details Appointments FOLLOW UP 15 2025 01:30P Toni Mccall PA-C Not available Not available Not available Lab HbA1c (hemoglob in A1c), blood [address], [address] [place], [address], 03/08/2025 13:26:02 lipid panel, serum 2024 025 [facility], [address] [place] [address], [address], 03/09/2025 08:12:02 CMP, serum or plasma 2024 025 [facility]), [address] [place] [address], [address], 03/09/2025 08:12:02 CBC w/ auto diff 2024 025 [facility], [address] [place] [address], [address], 03/09/2025 08:12:01 vitamin D, 25-hydrox y, total, serum 2024 025 [facility], [address] [place] [address], [address], 03/09/2025 08:12:04 TSH, ultra-sen sitive, serum 2024 025 [facility] [address] [place], [address], 03/09/2025 08:12:03 Hepatitis C IgG Ab, qual, serum 2024 025 [facility] ([place]), [address] [place], [address], 03/09/2025 08:12:03 HIV 1 + 2, meaningfu l use set 2024 025 [facility] ([place]), [address] [place], [address], 03/09/2025 08:12:04 rapid flu (A+B) [address], [address] [place], [address], 01/04/2025 09:13:37 rapid SARS CoV 2 Ag, QL, IA, upper respirato ry specimen [address], [address] [place], [address], 01/04/2025 09:13:37 HbA1c (hemoglob in A1c), blood 2024 025 [facility], [address] [place], [address], 12/06/2024 13:31:00 microalbu min/creat inine, mass ratio, urine [address], [address] [place], [address], 12/06/2024 13:44:57 gastroint estinal pathogens DNA + RNA panel, ALEKSANDRA+non-p robe, stool 2024 025 [facility] ([place]), [address] [facility], [place], [address], 09/26/2024 08:26:43 noninvasi ve colorecta l cancer DNA + occult blood screening , QL, stool 2024 025 [email or web address], [address], [address], [place], [address], 02/28/2025 10:39:33 microalbu min/creat inine, mass ratio, urine [address], [address] [facility], [place], [address], 09/06/2024 13:40:57 Referral None recorded. Procedures None recorded. Surgeries None recorded. Imaging MAMMO, screening , bilateral [address] [facility], [address] , [place], [address], 03/15/2025 11:08:40 Medication Orders Ozempic 2 mg/dose (8 mg/3 mL) subcutane ous pen injector 2024 025 [facility]3016, [address] [place], [address], 03/08/2025 13:32:55 imiquimod 5 % topical cream packet 2024 025 [facility] #3016, [address] [place], [address], 03/08/2025 13:32:55 Xarelto 20 mg tablet 2024 025 [facility] #[facility], [address] [place], [address], 03/08/2025 13:32:55 amoxicill in 875 mg-potass ium clavulana te 125 mg tablet 2024 025 [facility], [address] [place] [address], [address], 01/21/2025 05:01:43 prednison e 20 mg tablet 2024 025 [facility], [address] [place] [address], [address], 01/16/2025 05:01:59 Sudafed 12 Hour 120 mg tablet,ex tended release 2024 025 [facility], [address] [place] [address], [address], 01/21/2025 05:01:43 Xarelto 10 mg tablet 2024 025 [facility], [address] [place] [address], [address], 09/06/2024 13:24:34 Xarelto 20 mg tablet 2024 025 [facility], [address] [place] [address], [address], 09/06/2024 13:20:42 hydroxych loroquine 200 mg tablet 2024 025 [facility], [address] [place] [address], [address], 12/06/2024 13:19:13 Patient TargetsNo targets recorded. Patient Instructions Encounter Date Encounter Id Patient Instructions Last Modified By Organization Details Last Modified Time 09/06/2024 [id number] Rheumatoid Arthritis (RA): Care Instructions [email or web address] Not available 09/06/2024 13:17:28 12/06/2024 [id number] learning about type 2 diabetes Not available 12/06/2024 13:44:57 type 2 diabetes: care instructions [email or web address] Not available 12/06/2024 13:44:57 body mass index: care instructions [email or web address] Not available 12/06/2024 13:39:57 learning about healthy weight [email or web address] Not available 12/06/2024 13:39:57 03/08/2025 [id number] learning about type 2 diabetes Not available 03/08/2025 13:26:00 type 2 diabetes: care instructions [email or web address] Not available 03/08/2025 13:26:00 HIV testing: car e instructions [email or web address] Not available 03/08/2025 13:44:01 Rheumatoid Arthritis (RA): Care Instructions [email or web address] Not available 03/08/2025 13:26:00 Reason for Referral None Reported. Results Created Date Observation Date Name Description Value Unit Range Abnormal Flag Note LastModifiedBy Organization Detail LastModifiedTime 09/07/19 25 09/06/2024 micro album in/cr eatin ine, mass ratio , urine Microalbumin 30 mg/L Not Available [facility] [address] [place] [address], [address], 09/06/2024 12:57:02 09/07/19 25 09/06/2024 micro album in/cr eatin ine, mass ratio , urine Creatinine 200 mg/dL Not Available [facility] [address] [place] [address], [address], 09/06/2024 12:57:02 09/07/19 25 09/06/2024 micro album in/cr eatin ine, mass ratio , urine Ratio <30 mg/g Not Available [facility] [address] [place] [address], [address], 09/06/2024 12:57:02 09/25/19 25 09/26/2024 GI PROFI LE, STOOL , PCR campylobacte r Not Detect ed not detect ed Not Available [facility] ([facility]) [address], [place], [address], 09/26/2024 08:26:43 09/25/19 25 09/26/2024 GI PROFI LE, STOOL , PCR C difficile toxin A/B Detect ed not detect ed abnormal Not Available [facility] ([facility]) [address] [place], [address], 09/26/2024 08:26:43 09/25/19 25 09/26/2024 GI PROFI LE, STOOL , PCR plesiomonas shigelloides Not Detect ed not detect ed Not Available [facility] ([facility]) [address] [place], [address], 09/26/2024 08:26:43 09/25/19 25 09/26/2024 GI PROFI LE, STOOL , PCR salmonella Not Detect ed not detect ed Not Available [facility] ([facility]) [address] [place], [address], 09/26/2024 08:26:43 09/25/19 25 09/26/2024 GI PROFI LE, STOOL , PCR vibrio Not Detect ed not detect ed Not Available [facility] ([facility]) [address] [place], [address], 09/26/2024 08:26:43 09/25/19 25 09/26/2024 GI PROFI LE, STOOL , PCR vibrio cholerae Not Detect ed not detect ed Not Available [facility] ([facility]) [address] [place], [address], 09/26/2024 08:26:43 09/25/19 25 09/26/2024 GI PROFI LE, STOOL , PCR yersinia enterocoliti ca Not Detect ed not detect ed Not Available [facility] ([facility]) [address] [place], [address], 09/26/2024 08:26:43 09/25/19 25 09/26/2024 GI PROFI LE, STOOL , PCR enteroaggreg ative E coli Not Detect ed not detect ed Not Available [facility] ([facility]) [address] [place], [address], 09/26/2024 08:26:43 09/25/19 25 09/26/2024 GI PROFI LE, STOOL , PCR enteropathog enic E coli Not Detect ed not detect ed Not Available [facility] ([facility]) [address] [place], [address], 09/26/2024 08:26:43 09/25/19 25 09/26/2024 GI PROFI LE, STOOL , PCR enterotoxige juanita E coli Not Detect ed not detect ed Not Available [facility] ([facility]) [address] [place], [address], 09/26/2024 08:26:43 09/25/19 25 09/26/2024 GI PROFI LE, STOOL , PCR shiga-toxin- producing E coli Not Detect ed not detect ed Not Available [facility] ([facility]) [address] [place], [address], 09/26/2024 08:26:43 09/25/19 25 09/26/2024 GI PROFI LE, STOOL , PCR E coli O157 Not applic able not detect ed Not Available [facility] ([facility]) [address] [place], [address], 09/26/2024 08:26:43 09/25/19 25 09/26/2024 GI PROFI LE, STOOL , PCR shigella/ent eroinvasive E coli Not Detect ed not detect ed Not Available [facility] ([facility]) [address] [place], [address], 09/26/2024 08:26:43 09/25/19 25 09/26/2024 GI PROFI LE, STOOL , PCR cryptosporid ium Not Detect ed not detect ed Not Available [facility] ([facility]) [address] [place], [address], 09/26/2024 08:26:43 09/25/19 25 09/26/2024 GI PROFI LE, STOOL , PCR cyclospora cayetanensis Not Detect ed not detect ed Not Available [facility] ([facility]) [address] [place], [address], 09/26/2024 08:26:43 09/25/19 25 09/26/2024 GI PROFI LE, STOOL , PCR entamoeba histolytica Not Detect ed not detect ed Not Available [facility] ([facility]) [address] [place], [address], 09/26/2024 08:26:43 09/25/19 25 09/26/2024 GI PROFI LE, STOOL , PCR giardia lamblia Not Detect ed not detect ed Not Available [facility] ([facility]) [address] [place], [address], 09/26/2024 08:26:43 09/25/19 25 09/26/2024 GI PROFI LE, STOOL , PCR adenovirus F 40/41 Not Detect ed not detect ed Not Available [facility] ([facility]) [address] [place], [address], 09/26/2024 08:26:43 09/25/19 25 09/26/2024 GI PROFI LE, STOOL , PCR astrovirus Not Detect ed not detect ed Not Available [facility] ([facility]) [address] [place], [address], 09/26/2024 08:26:43 09/25/19 25 09/26/2024 GI PROFI LE, STOOL , PCR norovirus GI/gii Not Detect ed not detect ed Not Available [facility] ([facility]) [address] [place], [address], 09/26/2024 08:26:43 09/25/19 25 09/26/2024 GI PROFI LE, STOOL , PCR rotavirus A Not Detect ed not detect ed Not Available [facility] ([facility]) [address] [place], [address], 09/26/2024 08:26:43 09/25/19 25 09/26/2024 GI PROFI LE, STOOL , PCR sapovirus Not Detect ed not detect ed Not Available [facility] ([facility]) [address], [place], [address], 09/26/2024 08:26:43 12/07/19 25 12/06/2024 HbA1c (hemo globi n A1c), blood HbA1c 5.7 % Not Available [facility] [address] [place], [address], 12/06/2024 13:22:28 12/07/19 25 12/06/2024 micro album in/cr eatin ine, mass ratio , urine Microalbumin 10 mg/L Not Available [facility] [address] [place] [address], [address], 12/06/2024 13:25:25 12/07/19 25 12/06/2024 micro album in/cr eatin ine, mass ratio , urine Creatinine 200 mg/dL Not Available [facility] [address] [place] [address], [address], 12/06/2024 13:25:25 12/07/19 25 12/06/2024 micro album in/cr eatin ine, mass ratio , urine Ratio <30 mg/g Not Available [facility] [address] [place] [address], [address], 12/06/2024 13:25:25 01/05/20 25 01/04/2025 rapid flu (A+B) Flu A negati ve Not Available [facility] [address] [place] [address], [address], 01/04/2025 08:50:20 01/05/20 25 01/04/2025 rapid flu (A+B) Flu B negati ve Not Available [facility] [address] [facility], [place], [address], 01/04/2025 08:50:20 01/05/20 25 01/04/2025 rapid SARS CoV 2 Ag, QL, IA, upper respi rator y speci men SARS CoV Ag negati ve Not Available [facility] [address] [facility], [place], [address], 01/04/2025 08:50:27 03/08/20 25 03/09/2025 CBC WITH DIFFE RENTI AL/PL ATELE T WBC 9.4 x10e3 /uL 3.4-10 .8 normal Not Available [facility] ([facility]) [address] [place], [address], 03/09/2025 08:12:01 03/08/2003/09/2025 CBC WITH DIFFE RENTI AL/PL ATELE T RBC 5.35 x10e6 /uL 3.77-5 .28 above high normal Not Available [facility] ([facility]) [address], [place], [address], 03/09/2025 08:12:01 03/08/20 25 03/09/2025 CBC WITH DIFFE RENTI AL/PL ATELE T hemoglobin 14.9 g/dL 11.1-1 5.9 normal Not Available [facility] ([facility]) [address] [place], [address], 03/09/2025 08:12:01 03/08/2003/09/2025 CBC WITH DIFFE RENTI AL/PL ATELE T hematocrit 46.2 % 34.0-4 6.6 normal Not Available [facility] ([facility]) [address] [place], [address], 03/09/2025 08:12:01 03/08/2003/09/2025 CBC WITH DIFFE RENTI AL/PL ATELE T MCV 86 fL 79-97 normal Not Available [facility] ([facility]) [address], [place], [address], 03/09/2025 08:12:01 03/08/2003/09/2025 CBC WITH DIFFE RENTI AL/PL ATELE T MCH 27.9 pg 26.6-3 3.0 normal Not Available [facility] ([facility]) [address], [place], [address], 03/09/2025 08:12:01 03/08/2003/09/2025 CBC WITH DIFFE RENTI AL/PL ATELE T MCHC 32.3 g/dL 31.5-3 5.7 normal Not Available [facility] ([facility]) [address] [place], [address], 03/09/2025 08:12:01 03/08/2003/09/2025 CBC WITH DIFFE RENTI AL/PL ATELE T RDW 14.5 % 11.7-1 5.4 Not Available [facility] ([facility]) [address] [place], [address], 03/09/2025 08:12:01 03/08/2003/09/2025 CBC WITH DIFFE RENTI AL/PL ATELE T platelets 318 x10e3 /uL 150-45 0 normal Not Available [facility] ([facility]) [address] [place], [address], 03/09/2025 08:12:01 03/08/2003/09/2025 CBC WITH DIFFE RENTI AL/PL ATELE T neutrophils 57 % not estab. normal Not Available [facility] ([facility]) [address] [place], [address], 03/09/2025 08:12:01 03/08/2003/09/2025 CBC WITH DIFFE RENTI AL/PL ATELE T lymphs 32 % not estab. normal Not Available [facility] ([facility]) [address], [place], [address], 03/09/2025 08:12:01 03/08/2003/09/2025 CBC WITH DIFFE RENTI AL/PL ATELE T monocytes 7 % not estab. normal Not Available [facility] ([facility]) [address], [place], [address], 03/09/2025 08:12:01 03/08/2003/09/2025 CBC WITH DIFFE RENTI AL/PL ATELE T eos 3 % not estab. normal Not Available [facility] ([facility]) [address], [place], [address], 03/09/2025 08:12:01 03/08/2003/09/2025 CBC WITH DIFFE RENTI AL/PL ATELE T basos 1 % not estab. normal Not Available [facility] ([facility]) [address], [place], [address], 03/09/2025 08:12:01 03/08/2003/09/2025 CBC WITH DIFFE RENTI AL/PL ATELE T immature cells BRAID CUTTER Not Available [facility] ([facility]) [address], [place], [address], 03/09/2025 08:12:01 03/08/2003/09/2025 CBC WITH DIFFE RENTI AL/PL ATELE T neutrophils (absolute) 5.4 x10e3 /uL 1.4-7. 0 normal Not Available [facility] ([facility]) [address], [place], [address], 03/09/2025 08:12:01 03/08/2003/09/2025 CBC WITH DIFFE RENTI AL/PL ATELE T lymphs (absolute) 3.0 x10e3 /uL 0.7-3. 1 normal Not Available [facility] ([facility]) [address], [place], [address], 03/09/2025 08:12:01 03/08/2003/09/2025 CBC WITH DIFFE RENTI AL/PL ATELE T monocytes(ab solute) 0.6 x10e3 /uL 0.1-0. 9 normal Not Available [facility] ([facility]) [address], [place], [address], 03/09/2025 08:12:01 03/08/2003/09/2025 CBC WITH DIFFE RENTI AL/PL ATELE T eos (absolute) 0.3 x10e3 /uL 0.0-0. 4 normal Not Available [facility] ([facility]) [address], [place], [address], 03/09/2025 08:12:01 03/08/2003/09/2025 CBC WITH DIFFE RENTI AL/PL ATELE T baso (absolute) 0.1 x10e3 /uL 0.0-0. 2 normal Not Available [facility] ([facility]) [address], [place], [address], 03/09/2025 08:12:01 03/08/2003/09/2025 CBC WITH DIFFE RENTI AL/PL ATELE T immature granulocytes 0 % not estab. Not Available [facility] ([facility]) [address], [place], [address], 03/09/2025 08:12:01 03/08/2003/09/2025 CBC WITH DIFFE RENTI AL/PL ATELE T immature grans (abs) 0.0 x10e3 /uL 0.0-0. 1 Not Available [facility] ([facility]) [address], [place], [address], 03/09/2025 08:12:01 03/08/2003/09/2025 CBC WITH DIFFE RENTI AL/PL ATELE T NRBC BRAID CUTTER Not Available [facility] ([facility]) [address], [place], [address], 03/09/2025 08:12:01 03/08/20 25 03/09/2025 CBC WITH DIFFE RENTI AL/PL ATELE T hematology comments: BRAID CUTTER Not Available [facility] ([facility]) [address], [place], [address], 03/09/2025 08:12:01 03/08/2003/09/2025 COMP. METAB OLIC PANEL (14) glucose 137 mg/dL 70-99 above high normal Not Available [facility] ([facility]) [address], [place], [address], 03/09/2025 08:12:02 03/08/2003/09/2025 COMP. METAB OLIC PANEL (14) BUN 13 mg/dL 6-24 normal Not Available [facility] ([facility]) [address], [place], [address], 03/09/2025 08:12:02 03/08/20 25 03/09/2025 COMP. METAB OLIC PANEL (14) creatinine 0.68 mg/dL 0.57-1 .00 normal Not Available [facility] ([facility]) [address], [place], [address], 03/09/2025 08:12:02 03/08/2003/09/2025 COMP. METAB OLIC PANEL (14) eGFR 109 mL/mi n/1.7 3 >59 normal Not Available [facility] ([facility]) [address], [place], [address], 03/09/2025 08:12:02 03/08/20 25 03/09/2025 COMP. METAB OLIC PANEL (14) BUN/creatini ne ratio 19 9-23 normal Not Available [facility] ([facility]) [address], [place], [address], 03/09/2025 08:12:02 03/08/2003/09/2025 COMP. METAB OLIC PANEL (14) sodium 139 mmol/ L 134-14 4 normal Not Available [facility] ([facility]) [address], [address], 03/09/2025 08:12:02 03/08/2003/09/2025 COMP. METAB OLIC PANEL (14) potassium 4.3 mmol/ L 3.5-5. 2 normal Not Available [facility] ([facility]) [address], [address], 03/09/2025 08:12:02 03/08/2003/09/2025 COMP. METAB OLIC PANEL (14) chloride 105 mmol/ L 96-106 normal Not Available [facility] ([facility]) [address], [address], 03/09/2025 08:12:02 03/08/2003/09/2025 COMP. METAB OLIC PANEL (14) carbon dioxide, total 20 mmol/ L 20-29 normal Not Available [facility] ([facility]) [address], [address], 03/09/2025 08:12:02 03/08/2003/09/2025 COMP. METAB OLIC PANEL (14) calcium 9.9 mg/dL 8.7-10 .2 normal Not Available [facility] ([facility]) [address], [address], 03/09/2025 08:12:02 03/08/2003/09/2025 COMP. METAB OLIC PANEL (14) protein, total 6.8 g/dL 6.0-8. 5 normal Not Available [facility] ([facility]) [address], [address], 03/09/2025 08:12:02 03/08/2003/09/2025 COMP. METAB OLIC PANEL (14) albumin 4.3 g/dL 3.9-4. 9 normal Not Available [facility] ([facility]) [address] [place], [address], 03/09/2025 08:12:02 03/08/2003/09/2025 COMP. METAB OLIC PANEL (14) globulin, total 2.5 g/dL 1.5-4. 5 Not Available [facility] ([facility]) [address] [place], [address], 03/09/2025 08:12:02 03/08/2003/09/2025 COMP. METAB OLIC PANEL (14) bilirubin, total <0.2 mg/dL 0.0-1. 2 Not Available [facility] ([facility]) [address] [place], [address], 03/09/2025 08:12:02 03/08/2003/09/2025 COMP. METAB OLIC PANEL (14) alkaline phosphatase 53 IU/L 41-116 normal Not Available [facility] ([facility]) [address] [place], [address], 03/09/2025 08:12:02 03/08/2003/09/2025 COMP. METAB OLIC PANEL (14) AST (SGOT) 16 IU/L 0-40 normal Not Available [facility] ([facility]) [address] [place], [address], 03/09/2025 08:12:02 03/08/2003/09/2025 COMP. METAB OLIC PANEL (14) ALT (SGPT) 17 IU/L 0-32 normal Not Available [facility] ([facility]) [address] [place], [address], 03/09/2025 08:12:02 03/08/2003/09/2025 LIPID PANEL cholesterol, total 223 mg/dL 100-19 9 above high normal Not Available [facility] ([facility]) [address] [place], [address], 03/09/2025 08:12:02 03/08/20 25 03/09/2025 LIPID PANEL triglyceride s 201 mg/dL 0-149 above high normal Not Available [facility] ([facility]) [address] [place], [address], 03/09/2025 08:12:02 03/08/2003/09/2025 LIPID PANEL HDL cholesterol 50 mg/dL >39 normal Not Available [facility] ([facility]) [address] [place], [address], 03/09/2025 08:12:02 03/08/2003/09/2025 LIPID PANEL VLDL cholesterol greyson 36 mg/dL 5-40 Not Available [facility] ([facility]) [address] [place], [address], 03/09/2025 08:12:02 03/08/2003/09/2025 LIPID PANEL LDL chol calc ([facility]) 137 mg/dL 0-99 above high normal Not Available [facility] ([facility]) [address] [place], [address], 03/09/2025 08:12:02 03/08/2003/09/2025 LIPID PANEL LDL calc comment: BRAID CUTTER Not Available [facility] ([facility]) [address] [place], [address], 03/09/2025 08:12:02 03/08/2003/09/2025 HCV ANTIB DEVINRashaad REDDA DE(PC R/GEN O) HCV Ab Non Reacti ve non reacti ve Not Available [facility] ([facility]) [address] [place], [address], 03/09/2025 08:12:03 03/08/2003/09/2025 HCV ANTIB DEVIN CASCA DE(PC R/GEN O) interpretati on: Commen t Not infec alvin with HCV unles s early or acute infec tion is suspe cted (whic h may be delay ed in an immun ocomp romis ed indiv idual ), or other evide nce exist s to indic ate HCV infec tion. Not Available [facility] ([facility]) [address], [place], [address], 03/09/2025 08:12:03 03/08/2003/09/2025 TSH TSH 0.797 uIU/m L 0.450- 4.500 normal Not Available [facility] ([facility]) [address], [place], [address], 03/09/2025 08:12:03 03/08/2003/09/2025 VITAM IN D, 25-HY DROXY vitamin D, 25-hydroxy 12.4 NG/mL 30.0-1 00.0 below low normal Vitam in D defic iency has been defin ed by the Insti tute of Medic ine and an Endoc rine Socie ty pract ice guide line as a level of serum 25-OH vitam in D less than 20 ng/mL (1,2) . The Endoc rine Socie ty went on to furth er defin e vitam in D insuf ficie ncy as a level betwe en 21 and 29 ng/mL (2). 1. IOM (Inst itute of Medic ine). 2010. Dieta ry refer ence intak es for calci um and D. Clemente mckinnon [place]: The [facility] Press . 2. Amando santana [place], Vern valente [place], Elyssa off-F ramón i TURNER, et al. Evalu ation , treat ment, and preve ntion of vitam in D defic iency : an Endoc rine Socie ty clini greyson pract ice guide line. JCEM. 2010; 96(7) :1911 -30. Not Available [facility] ([facility]) [address], [place], [address], 03/09/2025 08:12:04 03/08/2003/09/2025 HIV AB/P2 4 AG WITH REFLE X HIV Ab/P24 Ag screen Non Reacti ve non reacti ve HIV Negat korin HIV-1 /HIV- 2 antib odies and HIV-1 p24 antig en were NOT detec alvin. There is no labor atory evide nce of HIV infec tion. Not Available [facility] ([facility]) [address], [place], [address], 03/09/2025 08:12:04 03/08/2003/08/2025 HbA1c (hemo globi n A1c), blood HbA1c 5.9 % Not Available [address], [place], [address], 03/08/2025 13:11:43 Result Notes None recorded. Problems Name Problem SNOMED Code Status Onset Date Resolution Date Notes Provider Name and Address Organization Details Recorded Time Migraine 38949577 Active 2024 DANIE Peters [address] [place] [address], [address] 8, [employer] 10:57:54 Deep venous thrombosis 388862443 Active 2024 DANIE Peters [address] [place] [address], [phone] 8, [place] [employer] 10:58:39 Type 2 diabetes mellitus 28542584 Active 2024 DANIE Peters [address] [place] [address], [phone] 8, [employer] 13:39:56 Superficial vein thrombosis 131385902 Active 2024 DANIE Peters [address] [place] [address], 326[address]-095 8, [employer] 13:24:34 Rheumatoid arthritis 86397935 Active 2024 DANIE Peters [address] [place] [address], [phone] 8, [employer] 13:24:43 Diarrhea 79773815 Completed 202403/08/2025 DANIE Peters [address] [place] [address], [phone] 8, [employer] 13:24:39 Clostridioi nile difficile infection 408141578 Active 2024 DANIE Peters [address] [place] [address], [address] 8, [employer] 10:23:25 Multiple skin tags 806995562 Active 2024 DANIE Peters [address] [place] [address], [address] 8, [employer] 13:29:33 Hyperlipide treva 36863922 Active 2024 DANIE Peters [address] [place] [address], [phone] 8, [employer] 14:08:04 Vitamin D deficiency 93843271 Active 2024 DANIE Peters [address] [place] [address], [phone] 8, [employer] 14:08:46 Problem Notes None recorded. Procedures Surgical History Date Name Laterality Status Provider Name and Address Organization Details Recorded Time 08/03/19 Diabetic Foot Screen completed DANIE Peters [address] [place] [address], [phone], [employer] 08/03/2024 15:40:14 09/19/19 22 Date of Last Pap Smear completed [employer] 09/06/2024 13:07:25 09/19/19 22 Hysterectomy completed [employer] 09/06/2024 13:09:15 Breast Biopsy completed [employer] 08/03/2024 10:39:23 Breast Surgery completed [facility] [employer] 08/03/2024 10:45:34 Tubal Ligation completed [facility] [employer] 08/03/2024 10:39:23 Endometrial Ablation completed [facility] [employer] 08/03/2024 10:39:23 Gallbladder Surgery completed [employer] 08/03/2024 10:39:23 Imaging Results None recorded. Procedure Notes None recorded. Medical Equipment None Reported. Allergies Allergen ID Allergen Name Allergen Category Reaction Reaction Severity Criticality Documentation Date Start Date Code Code System Note Provider Name and Address Organization Details Recorded Time 07657 codeine medicatio n Not available Not available Not available 08/03/2024 2670 RxNorm Bessy [employer] 5 10:39:21 48134 acetamino phen / hydrocodo ne medicatio n Not available Not available Not available 08/03/2024 23530 2 RxNorm Bessy [employer] null, [employer] 5 10:39:21 67323 latex environme nt,medica tion Not available Not available Not available 08/03/2024 78099 91 RxNorm Bessy [employer] null, [employer] 5 10:39:21 46384 Vioxx medicatio n Not available Not available Not available 08/03/2024 40620 9 RxNorm Bessy [employer] null, [employer] 5 10:39:21 Medications Name Sig Start Date Stop Date Status Note LastModified by Organization Details LastModified Time amoxicilli n 500 mg capsule TAKE 1 CAPSULE BY MOUTH TWICE A DAY FOR 10 DAYS 08/01 completed Not Available Not Available Not Available atorvastat in 10 mg tablet TAKE 1 TABLET BY MOUTH EVERY DAY AT BEDTIME FOR CHOLESTER OL. active Not Available Not Available No t Available metoprolol tartrate 100 mg tablet 12/06 completed Pt is only to take these prior to test on 09/11 (cardi ology) Not Available Not Available Not Available prednisone 20 mg tablet Take 1 tablet twice a day by oral route for 5 days. 01/16 completed Not Available Not Available Not Available pimecrolim us 1 % topical cream APPLY TO AFFECTED AREA TWICE A DAY 03/08 completed Not Available Not Available Not Available metronidaz ole 500 mg tablet TAKE 1 TABLET BY MOUTH EVERY 8 HOURS FOR 10 DAYS 12/06 completed Not Available Not Available Not Available amoxicilli n 875 mg tablet TAKE 1 TABLET BY MOUTH TWICE A DAY FOR 10 DAYS 08/01 completed Not Available Not Available Not Available imiquimod 5 % topical cream packet APPLY TO THE AFFECTED AREA(S) BY TOPICAL ROUTE EVERY OTHER DAY active Not Available Not Available No t Available nortriptyl ine 10 mg capsule TAKE 1 CAPSULE BY MOUTH EVERY NIGHT 08/03 completed Not Available Not Available Not Available mupirocin 2 % topical ointment APPLY TO SURGICAL SITE TWICE A DAY 03/08 completed Not Available Not Available Not Available ergocalcif harsha (vitamin D2) 1,250 mcg (50,000 unit) capsule TAKE 1 CAPSULE EVERY WEEK BY ORAL ROUTE FOR 90 DAYS, FOR VITAMIN D DEFICIENC Y. active Not Available Not Available No t Available hydroxychl oroquine 200 mg tablet TAKE 1 TABLET BY MOUTH EVERY DAY 12/06 completed Not Available Not Available Not Available metformin ER 500 mg tablet,ext ended release 24 hr TAKE 1 TABLET BY MOUTH EVERY DAY 08/01 completed Not Available Not Available Not Available Sudafed 12 Hour 120 mg tablet,ext ended release Take 1 tablet every 12 hours by oral route as needed for 10 days. 01/21 completed Not Available Not Available Not Available amoxicilli n 875 mg-potassi um clavulanat e 125 mg tablet Take 1 tablet every 12 hours by oral route for 10 days. 01/21 completed Not Available Not Available Not Available rosuvastat in 20 mg tablet TAKE 1 TABLET BY MOUTH EVERY DAY 08/01 completed Not Available Not Available Not Available cholecalci ferol (vitamin D3) 1,250 mcg (50,000 unit) capsule TAKE 1 CAPSULE BY MOUTH ONCE WEEKLY 12/06 completed Not Available Not Available Not Available cholecalci ferol (vitamin D3) 50 mcg (2,000 unit) capsule TAKE 1 CAPSULE EVERY DAY BY ORAL ROUTE FOR 90 DAYS, FOR VITAMIN D DEFICIENC Y. active Not Available Not Available No t Available fidaxomici n 200 mg tablet Take 1 tablet every 12 hours by oral route for 10 days. 12/06 completed Not Available Not Available Not Available Xarelto 10 mg tablet Take 1 tablet every day by oral route for 90 days. 09/06 completed Not Available Not Available Not Available Xarelto 20 mg tablet TAKE 1 TABLET BY MOUTH EVERY DAY FOR 30 DAYS active Not Available Not Available No t Available Xarelto DVT-PE Treatment 30-Day Starter 15 mg(42)-20 mg(9) tablet pack TAKE DIRECTED ON PACKAGE 09/06 completed Not Available Not Available Not Available Ozempic 1 mg/dose (4 mg/3 mL) subcutaneo us pen injector INJECT 1 MG SUBCUTANE OUSLY EVERY WEEK FOR 28 DAYS. 03/14 completed Not Available Not Available Not Available Skyrizi 150 mg/mL subcutaneo us pen injector Inject 1 mL every 4 weeks by subcutane ous route. active Not Available Not Available No t Available Ozempic 2 mg/dose (8 mg/3 mL) subcutaneo us pen injector Inject 2 mg every week by subcutane ous route for 28 days. 2024 active Not Available Not Available Not Avai lable Ozempic 0.25 mg or 0.5 mg (2 mg/3 mL) subcutaneo us pen injector INJECT 0.5 MG SUBCUTANE OUSLY ONCE WEEKLY 08/01 completed Not Available Not Available Not Available Vitals Date Recorded Body height Body mass index (BMI) Body weight Oxygen saturation Oxygen saturation in Arterial blood by Pulse oximetry Heart rate Body temperature Systolic And Diastolic Provider Name and Address Organization Details Last Updated DateTime 167.64 cm 37.6 kg/m2 632440. 3 g 98 % 98 % 78 /min 98.1 [degF] 116/72 mm[Hg] [facility] [employer], [facility]. 13:00:51 Date Recorded Body height Body mass index (BMI) Body weight Heart rate Oxygen saturation Oxygen saturation in Arterial blood by Pulse oximetry Body temperature Systolic And Diastolic Provider Name and Address Organization Details Last Updated DateTime 5 167.64 cm 37.4 kg/m2 734588. 43 g 84 /min 97 % 97 % 98.4 [degF] 112/72 mm[Hg] [employer] 5 11:26:22 Date Recorded Body height Body mass index (BMI) Body weight Heart rate Oxygen saturation Oxygen saturation in Arterial blood by Pulse oximetry Body temperature Systolic And Diastolic Provider Name and Address Organization Details Last Updated DateTime 5 167.64 cm 36.4 kg/m2 006042. 72 g 76 /min 98 % 98 % 98.6 [degF] 116/78 mm[Hg] [employer] 5 13:22:15 Date Recorded Body height Body mass index (BMI) Body weight Oxygen saturation Oxygen saturation in Arterial blood by Pulse oximetry Heart rate Body temperature Systolic And Diastolic Provider Name and Address Organization Details Last Updated DateTime 5 167.64 cm 36.4 kg/m2 756777. 44 g 98 % 98 % 82 /min 98.3 [degF] 118/80 mm[Hg] [employer] 5 08:45:37 Date Recorded Body height Body mass index (BMI) Body weight Oxygen saturation Oxygen saturation in Arterial blood by Pulse oximetry Heart rate Body temperature Systolic And Diastolic Provider Name and Address Organization Details Last Updated DateTime 5 167.64 cm 35.7 kg/m2 971466. 35 g 96 % 96 % 80 /min 98.4 [degF] 104/70 mm[Hg] [employer] 5 13:12:48 Social History Question Answer Notes LastModified by Organizat ion Details LastModified Time Tobacco Smoking Status Current Every Day Smoker [employer]. 08/03/2024 10:39:22 Do You Have An Advance Directive? No Information not available 08/03/2024 Is Your Home Air Conditioned? Yes Information not available 08/03/2024 If You Are , What Was Your Level Of Alcohol Consumption Prior To ? None Information not available 08/03/2024 Do You Wear A Helmet When Biking? No Information not available 08/03/2024 Are You Blind Or Do You Have Difficulty Seeing? No Information not available 08/03/2024 What Is Your Level Of Caffeine Consumption? Moderate Information not available 08/03/2024 Are You A Caregiver? No Information not available 08/03/2024 What Type Of Gang Hemstitching Machine Operator Do You Use? None Information not available 08/03/2024 Have You Been To An Area Known To Be High Risk For COVID-19? No Information not available 08/03/2024 Are You Deaf Or Do You Have Serious Difficulty Hearing? No Information not available 09/06/2024 What Type Of Diet Are You Following? REGULAR Information not available 08/03/2024 Who Is Your Employer? [employer] Information not available 08/03/2024 Have There Been Any Changes To Your Family Or Social Situation? No Information no t available 08/03/2024 Are There Any Guns Present In Your Home? No Information not available 08/03/2024 Which Of Your Hands Is Dominant? Right Information not available 08/03/2024 Where Do You Live? [place] Information not available 03/08/2025 Do You Have A Medical Power Of Truck Assembler? No Information not available 08/03/2024 What Was The Date Of Your Most Recent Tobacco Screening? 03/08/2025 Information not available 03/08/2025 Are There Any Occupational Health Risks Where You Work? [employer] Information not available 03/08/2025 Do You Have Any Pets? Yes Information not available 08/03/2024 Do You Use Protection During Sex? No Information not available 08/03/2024 What Is Your Relationship Status? Domestic Partner Information not available 08/03/2024 Do You Wear A Seatbelt When Driving Or As A Passenger? Yes Information not available 03/08/2025 Do You Use Your Seat Belt Or Car Seat Routinely? Yes Information not available 08/03/2024 Are You Sexually Active? Yes Information not available 08/03/2024 Do You Have Any Siblings? Sister Information not available 08/03/2024 Do You Have Smoke And Carbon Monoxide Detectors In Your Home? Yes Information not available 09/06/2024 At What Age Did You Start Smoking Tobacco? 9 Information not available 08/03/2024 Are You Passively Exposed To Smoke? Yes Information no t available 08/03/2024 Are There Any Smokers In Your House? Yes Information not available 08/03/2024 How Much Tobacco Do You Smoke? 1 PPD Information not available 08/03/2024 Do You Participate In Social Media? Yes Information not available 08/03/2024 Do You Use Sunscreen Routinely? No Information not available 08/03/2024 Has Tobacco Cessation Counseling Been Provided? Yes Information not available 08/03/2024 On What Date Was Tobacco Cessation Counseling Provided? 03/08/2025 Information not available 03/08/2025 How Many Years Have You Smoked Tobacco? 34 Information not available 08/03/2024 Have You Recently Traveled Abroad? No Information not available 08/03/2024 Do You Have Difficulty Walking Or Climbing Stairs? No Information not available 08/03/2024 Are You Currently In School? No Information not available 08/03/2024 What Contraceptive Method Was Reported At Start Of This Visit? Female Sterilization Information not available 09/06/2024 Do You Feel Safe In Your Home? Yes Information not available 03/08/2025 Do You Have Any Dietary Restrictions? No Information not available 08/03/2024 Sex: Unknown Functional Status Question Answer Note LastModified by Organizat ion Details LastModified Time Do you use any illicit or recreational drugs? No Information not available 08/03/2024 Do you feel safe in your relationship? Yes Information n ot available 03/08/2025 Do you or have you ever used any other forms of tobacco or nicotine? No Information not available 08/03/2024 What is your level of alcohol consumption? None Information not available 08/03/2024 Are you currently employed? Yes Information not available 08/03/2024 Do you have transportation difficulties? No Information not available 08/03/2024 Are you able to walk independently without assistance or assistive devices? [employer] Information not available 08/03/2024 Do you have difficulty doing errands alone? No Information not available 08/03/2024 Are you able to care for yourself independently? Yes Information not available 08/03/2024 Do you have difficulty dressing, bathing, grooming, or toileting? No Information not available 08/03/2024 What is your exercise level? Occasional Information not available 08/03/2024 Mental Status Question Answer Note LastModified by Organizat ion Details LastModified Time Do you feel stressed (tense, restless, nervous, or anxious, or unable to sleep at night)? GN6582-7 Information not available 08/03/2024 Do you have difficulty concentrating, remembering or making decisions? No Information no t available 08/03/2024 Are you or have you been involved with bullying? No Information not available 08/03/2024 Family History Relationship Description Onset Age of this Age Resolved Age Notes LastModified by Organization Details LastModified Time Mother Hypercholest erolemia Not available 2024 10:39:21 Mother Malignant neoplasm of breast Not available 2024 10:39:21 Mother Arthritis Not available 08/03/2024 10:39:21 Mother Heart disease Not available 2024 10:39:21 Mother Osteoporosis Not availab le 08/03/2024 10:39:21 Unspecified Relation Epilepsy Not available 08/03/19 10:39:21 Unspecified Relation Seizure Not available 10:39:21 Father Harmful pattern of use of alcohol Not available 2024 10:39:21 Father Hypertensive disorder Not available 2024 10:39:21 Medical History Condition Response Other Y Obesity Y Arthritis Y Headaches Y Breast Cancer Y Diabetes Y Gynecological History Statement/Question Response On BCP's at Conception? N Menses Monthly N STIs/STDs N HPV Vaccine N Date of Last Pap Smear 09/18/2021 Sexual Problems? N Current Control Method Hysterectom y Most Recent Mammogram Age at First Child 17 Obstetrics History GPAL:G 4 P 3 0 1 3 Type Value Multiple Births 0 Full Term 3 Induced 1 Spontaneous 0 Premature 0 Living 3 Ectopics 0 Total 4 Past Encounters Encounter ID Performer Location Encounter Start Date Encounter Closed Date Diagnosis/Indication Diagnosis SNOMED-CT Code Diagnosis ICD10 Code Diagnosis IMO Codes Diagnosis Note [id number] DANIE Peters [address] [address] 08/03/2024 10:27:23 08/03/2024 11:07:53 Screening mammography 65464664 Z12.31 Prediabetes 106605408 R7 3.03 Deep venou s thrombosis 841412077 I82.409 Superficia l vein thrombosis 950750477 I82.741 [id number] DANIE Peters [address] [address] 09/06/2024 12:50:32 09/06/2024 13:15:50 Type 2 diabetes mellitus 67869680 E11.9 Rheumatoid arthritis 698 88537 M06.9 History of deep vein thrombosis 701006123 Z86.718 Patient should be on Xarelton 20 mg X 6 months - inadverten tly sent 10 (cancelled at pharmacy) [id number] DANIE Peters [address] [address] 09/24/2024 11:17:07 09/24/2024 11:39:51 Screening for malignant neoplasm of colon 401284974 Z12.11 Diarrhea 51546987 R19.7 [place] food, clear liquids. Will call with PCR results. [id number] DANIE Peters [address] [address] 12/06/2024 13:03:03 12/06/2024 13:38:12 Type 2 diabetes mellitus 47918143 E11.9 20085475 Needs diabetic eye exam Body mass index 30+ - obesity 361925557 Z68.36 [id number] DANIE Peters [facility] [address] [place] [address] 01/04/2025 08:28:30 01/04/2025 10:07:19 Congestion of nasal sinus 06540460 R09.81 914552 Acute righ t otitis media 272583985 H66.91 [id number] DANIE Peters [facility] [address] [place] [address] 03/08/2025 12:41:13 03/08/2025 13:41:52 Type 2 diabetes mellitus 22378854 E11.9 97636933 Screening mammography 24 472796 Z12.31 1672297050 Screening for malignant neoplasm of colon 532869258 Z12.11 473524 Superficia l vein thrombosis 110636790 I82.813 Rheumatoid arthritis 698 11858 M06.9 History of deep vein thrombosis 963327217 Z86.718 Multiple skin tags 87137 7009 L91.8 [id number] Viral scre ening status 444080857 Z11.59 653752 HIV screening 876611281 Z11.4 [id number] Health Concerns Section Related Observation LastModified by Organization Detai ls LastModified Time None Recorded Concern Status LastModified by Organization Details LastModified Time None Recorded Advance Directives Directive N: Payers Insurance Date Sequence Insurance Name Policy Number Policy Weathers Covered Member ID Weathers Member ID Guarantor Name 03/12/2025 1 [facility] (MEDICAID HMO) Jayne Harris [id number] Jayne Harris Notes Date Note Type Note Provider Name and Address Organization Details Recorded Time 09/06/2024 text/html ROS as noted in the HPI Patient presents for followup.Saw cardiology who states she should not have intervention on left leg at this time.Wonders what she can take for arhtritis pain. Was on injections but not currently. CAn't take NSAIDs due to Xarelto. DANIE Peters [address] [place] [address], [phone], [facility] [employer] 09/06/2024 17:52:41 09/24/2024 text/html ROS as noted in the HPI Patient states she is having diarrhea multiple times per day for two weeks. No vomiting. No fever. No blood in stool. Belly feels sore at times but not painful. DANIE Peters [address] [place], [address], [employer] 09/24/2024 13:54:46 12/06/2024 text/html ROS as noted in the HPI Patient presents for follow up on diabetes. Doing well with Ozempic. Sugars well controlled. Denies side effects.History of RA. Symptoms better in the summer.Had cyst removed from right jawline yesterday. DANIE Peters [address] [place], [address], [employer] 12/06/2024 13:42:05 01/04/2025 text/html ROS as noted in the HPI Runny nose, cough, congestion, headache x 2 days. No fever. Right ear pain. No vomiting or diarrhea. DANIE Peters [address] [place], [address], [employer] 01/04/2025 12:38:59 03/08/2025 text/html ROS as noted in the [facility] Patient presents for followup. History of diabetes. Doing well.Needs to reschedule mammogram.Has cologuard - has not performed it yet. DANIE Peters [address] [place], [address], [employer] 03/08/2025 15:05:12 OBGyn Episode No OBEpisode recorded.
--- OUTSIDE RECORDS SUMMARY | 2025-03-23 18:25 | XMS_ITS | Continuity of Care Document ---
[facility] Organization [facility] Address [address] [place] [address] Assessment No assessment recorded. Plan of Treatment Reminders Order Date Submit Date Provider Last Modified By Organization Details Last Modified Time Details Appointments FOLLOW UP 15 2025 01:30P Toni Mccall PA-C Not available Not available Not available Lab HbA1c (hemoglob in A1c), blood 2024 025 [email or web address] [facility], [address] [facility], [place], [address], 03/08/2025 13:26:02 lipid panel, serum 2024 025 [facility], [address] [place] [address], [address], 03/09/2025 08:12:02 CMP, serum or plasma 2024 025 [facility]), [address] [place] [address], [address], 03/09/2025 08:12:02 CBC w/ auto diff 2024 025 [facility], [address] [place] [address], [address], 03/09/2025 08:12:01 vitamin D, 25-hydrox y, total, serum 2024 025 [facility], [address] [place], [address], 03/09/2025 08:12:04 TSH, ultra-sen sitive, serum 2024 [facility] [address] [place], [address], 03/09/2025 08:12:03 Hepatitis C IgG Ab, qual, serum 2024 [facility] [address] [place], [address], 03/09/2025 08:12:03 HIV 1 + 2, meaningfu l use set 2024 [facility]), [address] [place], [address], 03/09/2025 08:12:04 Referral None recorded. Procedures None recorded. Surgeries None recorded. Imaging MAMMO, screening , bilateral [address] Central[facility] Scheduling, [address] [place], [address], 03/22/2025 07:09:50 Medication Orders Ozempic 2 mg/dose (8 mg/3 mL) subcutane ous pen injector 2024 [id number], [address] [place], [address], 03/08/2025 13:32:55 imiquimod 5 % topical cream packet 2024 025 [id number], [address] [place], [address], 03/08/2025 13:32:55 Xarelto 20 mg tablet 2024 025 [id number], [address] [place], [address], 03/08/2025 13:32:55 Patient TargetsNo targets recorded. Patient Instructions Encounter Date Encounter Id Patient Instructions Last Modified By Organization Details Last Modified Time 03/08/2025 [id number] learning about type 2 diabetes [email or web address] Not available 03/08/2025 13:26:00 type 2 diabetes: care instructions [email or web address] Not available 03/08/2025 13:26:00 HIV testing: car e instructions Not available 03/08/2025 13:44:01 Rheumatoid Arthritis (RA): Care Instructions [email or web address] Not available 03/08/2025 13:26:00 Reason for Referral None Reported. Results Created Date Observation Date Name Description Value Unit Range Abnormal Flag Note LastModifiedBy Organization Detail LastModifiedTime 03/08/2003/09/2025 CBC WITH DIFFE RENTI AL/PL ATELE T WBC 9.4 x10e3 /uL 3.4-10 .8 normal Not Available [facility] ([facility]) [address] [place], [address], 03/09/2025 08:12:01 03/08/2003/09/2025 CBC WITH DIFFE RENTI AL/PL ATELE T RBC 5.35 x10e6 /uL 3.77-5 .28 above high normal Not Available [facility] ([facility]) [address] [place], [address], 03/09/2025 08:12:01 03/08/2003/09/2025 CBC WITH DIFFE RENTI AL/PL ATELE T hemoglobin 14.9 g/dL 11.1-1 5.9 normal Not Available [facility] ([facility]) [address] [place], [address], 03/09/2025 08:12:01 03/08/2003/09/2025 CBC WITH DIFFE RENTI AL/PL ATELE T hematocrit 46.2 % 34.0-4 6.6 normal Not Available [facility] ([facility]) [address] [place], [address], 03/09/2025 08:12:03/08/2003/09/2025 CBC WITH DIFFE RENTI AL/PL ATELE T MCV 86 fL 79-97 normal Not Available [facility] ([facility]) [address] [facility], [place], [address], 03/09/2025 08:12:01 03/08/2003/09/2025 CBC WITH DIFFE RENTI AL/PL ATELE T MCH 27.9 pg 26.6-3 3.0 normal Not Available [facility] ([facility]) [address] [facility], [place], [address], 03/09/2025 08:12:01 03/08/2003/09/2025 CBC WITH DIFFE RENTI AL/PL ATELE T MCHC 32.3 g/dL 31.5-3 5.7 normal Not Available [facility] ([facility]) [address] [place], [address], 03/09/2025 08:12:01 03/08/2003/09/2025 CBC WITH DIFFE RENTI AL/PL ATELE T RDW 14.5 % 11.7-1 5.4 Not Available [facility] ([facility]) [address] [facility], [place], [address], 03/09/2025 08:12:01 03/08/2003/09/2025 CBC WITH DIFFE RENTI AL/PL ATELE T platelets 318 x10e3 /uL 150-45 0 normal Not Available [facility] ([facility]) [address] [facility], [place], [address], 03/09/2025 08:12:01 03/08/2003/09/2025 CBC WITH DIFFE RENTI AL/PL ATELE T neutrophils 57 % not estab. normal Not Available [facility] ([facility]) [address] [facility], [place], [address], 03/09/2025 08:12:01 03/08/2003/09/2025 CBC WITH DIFFE RENTI AL/PL ATELE T lymphs 32 % not estab. normal Not Available [facility] ([facility]) [address] [facility], [place], [address], 03/09/2025 08:12:01 03/08/2003/09/2025 CBC WITH DIFFE RENTI AL/PL ATELE T monocytes 7 % not estab. normal Not Available [facility] ([facility]) [address] [facility], [place], [address], 03/09/2025 08:12:01 03/08/2003/09/2025 CBC WITH DIFFE RENTI AL/PL ATELE T eos 3 % not estab. normal Not Available [facility] ([facility]) [address] [facility], [place], [address], 03/09/2025 08:12:01 03/08/2003/09/2025 CBC WITH DIFFE RENTI AL/PL ATELE T basos 1 % not estab. 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 0 normal Not Available [facility] ([facility]) [address] [place], [address], 03/09/2025 08:12:01 03/08/20 25 03/09/2025 CBC WITH DIFFE RENTI AL/PL ATELE T lymphs (absolute) 3.0 x10e3 /uL 0.7-3. 1 normal Not Available [facility] ([facility]) [address] [facility], [place], [address], 03/09/2025 08:12:01 03/08/2003/09/2025 CBC WITH DIFFE RENTI AL/PL ATELE T monocytes(ab solute) 0.6 x10e3 /uL 0.1-0. 9 normal Not Available [facility] ([facility]) [address] [facility], [place], [address], 03/09/2025 08:12:01 03/08/2003/09/2025 CBC WITH DIFFE RENTI AL/PL ATELE T eos (absolute) 0.3 x10e3 /uL 0.0-0. 4 normal Not Available [facility] ([facility]) [address] [facility], [place], [address], 03/09/2025 08:12:01 03/08/2003/09/2025 CBC WITH DIFFE RENTI AL/PL ATELE T baso (absolute) 0.1 x10e3 /uL 0.0-0. 2 normal Not Available [facility] ([facility]) [address] [facility], [place], [address], 03/09/2025 08:12:01 03/08/2003/09/2025 CBC WITH DIFFE RENTI AL/PL ATELE T immature granulocytes 0 % not estab. Not Available [facility] ([facility]) [address] [facility], [place], [address], 03/09/2025 08:12:01 03/08/2003/09/2025 CBC WITH DIFFE RENTI AL/PL ATELE T immature grans (abs) 0.0 x10e3 /uL 0.0-0. 1 Not Available [facility] ([facility]) [address] [facility], [place], [address], 03/09/2025 08:12:01 03/08/2003/09/2025 CBC WITH DIFFE RENTI AL/PL ATELE T NRBC TUBE STATION ATTENDANT Not Available [facility] ([facility]) [address] [facility], [place], [address], 03/09/2025 08:12:01 03/08/20 25 03/09/2025 CBC WITH DIFFE RENTI AL/PL ATELE T hematology comments: TUBE STATION ATTENDANT Not Available [facility] ([facility]) [address] [facility], [place], [address], 03/09/2025 08:12:01 03/08/20 25 03/09/2025 COMP. METAB OLIC PANEL (14) glucose 137 mg/dL 70-99 above high normal Not Available [facility] ([facility]) [address] [facility], [place], [address], 03/09/2025 08:12:02 03/08/2003/09/2025 COMP. METAB OLIC PANEL (14) BUN 13 mg/dL 6-24 normal Not Available [facility] ([facility]) [address] [facility], [place], [address], 03/09/2025 08:12:02 03/08/20 25 03/09/2025 COMP. METAB OLIC PANEL (14) creatinine 0.68 mg/dL 0.57-1 .00 normal Not Available [facility] ([facility]) [address] [facility], [place], [address], 03/09/2025 08:12:02 03/08/2003/09/2025 COMP. METAB OLIC PANEL (14) eGFR 109 mL/mi n/1.7 3 >59 normal Not Available [facility] ([facility]) [address] [facility] [place], [address], 03/09/2025 08:12:02 03/08/20 25 03/09/2025 COMP. METAB OLIC PANEL (14) BUN/creatini ne ratio 19 9-23 normal Not Available [facility] ([facility]) [address] [facility] [place], [address], 03/09/2025 08:12:02 03/08/2003/09/2025 COMP. METAB OLIC PANEL (14) sodium 139 mmol/ L 134-14 4 normal Not Available [facility] ([facility]) [address] [facility] [place], [address], 03/09/2025 08:12:02 03/08/2003/09/2025 COMP. METAB OLIC PANEL (14) potassium 4.3 mmol/ L 3.5-5. 2 normal Not Available [facility] ([facility]) [address] [facility] [place], [address], 03/09/2025 08:12:02 03/08/2003/09/2025 COMP. METAB OLIC PANEL (14) chloride 105 mmol/ L 96-106 normal Not Available [facility] ([facility]) [address] [facility] [place], [address], 03/09/2025 08:12:02 03/08/2003/09/2025 COMP. METAB OLIC PANEL (14) carbon dioxide, total 20 mmol/ L 20-29 normal Not Available [facility] ([facility]) [address] [facility] [place], [address], 03/09/2025 08:12:02 03/08/2003/09/2025 COMP. METAB OLIC PANEL (14) calcium 9.9 mg/dL 8.7-10 .2 normal Not Available [facility] ([facility]) [address] [facility] [place], [address], 03/09/2025 08:12:02 03/08/2003/09/2025 COMP. METAB OLIC PANEL (14) protein, total 6.8 g/dL 6.0-8. 5 normal Not Available [facility] ([facility]) [address] [facility] [place], [address], 03/09/2025 08:12:02 03/08/2003/09/2025 COMP. METAB OLIC PANEL (14) albumin 4.3 g/dL 3.9-4. 9 normal Not Available [facility] ([facility]) [address] [facility], [place], [address], 03/09/2025 08:12:02 03/08/2003/09/2025 COMP. METAB OLIC PANEL (14) globulin, total 2.5 g/dL 1.5-4. 5 Not Available [facility] ([facility]) [address] [facility], [place], [address], 03/09/2025 08:12:02 03/08/2003/09/2025 COMP. METAB OLIC PANEL (14) bilirubin, total <0.2 mg/dL 0.0-1. 2 Not Available [facility] ([facility]) [address] [facility], [place], [address], 03/09/2025 08:12:02 03/08/2003/09/2025 COMP. METAB OLIC PANEL (14) alkaline phosphatase 53 IU/L 41-116 normal Not Available [facility] ([facility]) [address] [facility], [place], [address], 03/09/2025 08:12:02 03/08/2003/09/2025 COMP. METAB OLIC PANEL (14) AST (SGOT) 16 IU/L 0-40 normal Not Available [facility] ([facility]) [address] [facility], [place], [address], 03/09/2025 08:12:02 03/08/2003/09/2025 COMP. METAB OLIC PANEL (14) ALT (SGPT) 17 IU/L 0-32 normal Not Available [facility] ([facility]) [address] [facility], [place], [address], 03/09/2025 08:12:02 03/08/2003/09/2025 LIPID PANEL cholesterol, total 223 mg/dL 100-19 9 above high normal Not Available [facility] ([facility]) [address] [place], [address], 03/09/2025 08:12:02 03/08/20 25 03/09/2025 LIPID PANEL triglyceride s 201 mg/dL 0-149 above high normal Not Available [facility] ([facility]) [address] [place], [address], 03/09/2025 08:12:02 03/08/2003/09/2025 LIPID PANEL HDL cholesterol 50 mg/dL >39 normal Not Available [facility] ([facility]) [address] [place], [address], 03/09/2025 08:12:02 03/08/2003/09/2025 LIPID PANEL VLDL cholesterol greyson 36 mg/dL 5-40 Not Available [facility] ([facility]) [address] [place], [address], 03/09/2025 08:12:02 03/08/2003/09/2025 LIPID PANEL LDL chol calc ([facility]) 137 mg/dL 0-99 above high normal Not Available [facility] ([facility]) [address] [place], [address], 03/09/2025 08:12:02 03/08/2003/09/2025 LIPID PANEL LDL calc comment: TUBE STATION ATTENDANT Not Available [facility] ([facility]) [address] [place], [address], 03/09/2025 08:12:02 03/08/2003/09/2025 HCV ANTIB DEVIN CASCA DE(PC R/GEN O) HCV Ab Non Reacti ve non reacti ve Not Available [facility] ([facility]) [address] [place], [address], 03/09/2025 08:12:03 03/08/2003/09/2025 HCV ANTIB DEVIN CASCA DE(PC R/GEN O) interpretati on: Commen t Not infec alvin with HCV unles s early or acute infec tion is suspe cted (whic h may be delay ed in an immun ocomp romis ed indiv idual ), or other evide nce exist s to indic ate HCV infec tion. Not Available [facility] ([facility]) [address] [facility], [place], [address], 03/09/2025 08:12:03 03/08/2003/09/2025 TSH TSH 0.797 uIU/m L 0.450- 4.500 normal Not Available [facility] ([facility]) [address] [facility], [place], [address], 03/09/2025 08:12:03 03/08/2003/09/2025 VITAM IN D, 25-HY [...] um and D. Clemente mckinnon [place]: [facility] [employer] . 2. Amando santana [place], Vern valente [place], Elyssa off-F errar i TURNER, et al. Evalu ation , treat ment, and preve ntion of vitam in D defic iency : an Endoc rine Socie ty clini geryson pract ice guide line. JCEM. 2010; 96(7) :1911 -30. Not Available [facility] ([facility]) [address] [facility], [place], [address], 03/09/2025 08:12:04 03/08/2003/09/2025 HIV AB/P2 4 AG WITH REFLE X HIV Ab/P24 Ag screen Non Reacti ve non reacti ve HIV Negat korin HIV-1 /HIV- 2 antib odies and HIV-1 p24 antig en were NOT detec alvin. There is no labor atory evide nce of HIV infec tion. Not Available [facility] ([facility]) [address] [facility], [place], [address], 03/09/2025 08:12:04 03/08/2003/08/2025 HbA1c (hemo globi n A1c), blood HbA1c 5.9 % Not Available [facility] [address] [place] [address], [place], [address], 03/08/2025 13:11:43 Result Notes None recorded. Problems Name Problem SNOMED Code Status Onset Date Resolution Date Notes Provider Name and Address Organization Details Recorded Time Migraine 37958690 Active 2024 DANIE Peters [address] [place] [address], [address], [employer] 10:57:54 Deep venous thrombosis 358064023 Active 2024 DANIE Peters [address] [place] [address], [address], [employer] 10:58:39 Type 2 diabetes mellitus 16134025 Active 2024 DANIE Peters [address] [place] [address], [address], [employer] 13:39:56 Superficial vein thrombosis 877603826 Active 2024 DANIE Peters [address] [place] [address], [address], [employer] 10/03/202 5 13:24:34 Rheumatoid arthritis 51043880 Active 2024 DANIE Peters [address] [place] [address], [address], [employer] 13:24:43 Diarrhea 77085993 Completed 202403/08/2025 DANIE Peters [address] [place] [address], [address] 8, [employer] 13:24:39 Clostridioi nile difficile infection 944175255 Active 2024 DANIE Peters [address] [place] [address], [address] 8, [employer] 10:23:25 Multiple skin tags 527696825 Active 2024 DANIE Peters [address] [place] [address], [address] 8, [employer] 13:29:33 Hyperlipide treva 66092620 Active 2024 DANIE Peters [address] [place] [address], [address] 8, [employer] 14:08:04 Vitamin D deficiency 69620643 Active 2024 DANIE Peters [address] [place] [address], [address] 8, [employer] 14:08:46 Problem Notes None recorded. Procedures Surgical History Date Name Laterality Status Provider Name and Address Organization Details Recorded Time 08/03/19 Diabetic Foot Screen completed DANIE Peters [address] [place] [address], [address], [employer] 08/03/2024 15:40:14 09/19/19 22 Date of Last Pap Smear completed [employer] 09/06/2024 13:07:25 09/19/19 22 Hysterectomy completed [employer] 09/06/2024 13:09:15 Breast Biopsy completed [employer] 08/03/2024 10:39:23 Breast Surgery completed [employer] 08/03/2024 10:45:34 Tubal Ligation completed [employer] 08/03/2024 10:39:23 Endometrial Ablation completed [employer] 08/03/2024 10:39:23 Gallbladder Surgery completed [employer] 08/03/2024 10:39:23 Imaging Results None recorded. Procedure Notes None recorded. Medical Equipment None Reported. Allergies Allergen ID Allergen Name Allergen Category Reaction Reaction Severity Criticality Documentation Date Start Date Code Code System Note Provider Name and Address Organization Details Recorded Time 08706 codeine medicatio n Not available Not available Not available 08/03/2024 2670 RxNorm Bessy [employer], [employer] 5 10:39:21 58550 acetamino phen / hydrocodo ne medicatio n Not available Not available Not available 08/03/2024 57227 2 RxNorm [employer], [employer] 5 10:39:21 68793 latex environme nt,medica tion Not available Not available Not available 08/03/2024 75912 91 RxNorm Bessy [employer], [employer] 5 10:39:21 91848 Vioxx medicatio n Not available Not available Not available 08/03/2024 54711 9 RxNorm [employer], [employer] 5 10:39:21 Medications Name Sig Start [...] Organization Details Last Updated DateTime 167.64 cm 35.7 kg/m2 771535. 35 g 96 % 96 % 80 /min 98.4 [degF] 104/70 mm[Hg] [facility] [employer] [facility]. 13:12:48 Social History Question Answer Notes LastModified by Organizat ion Details LastModified Time Tobacco Smoking Status Current Every Day Smoker Bessy madden, [employer] 08/03/2024 10:39:22 Do You Have An Advance [...] Information not available 08/03/2024 What Type Of Washing Tub Operator Do You Use? None Information not available 08/03/2024 Have You Been To An Area Known To Be High Risk For COVID-19? No Information not available 08/03/2024 Are You Deaf Or Do You Have Serious Difficulty Hearing? No Information not available 09/06/2024 What Type Of Diet Are You Following? REGULAR Information not available 08/03/2024 Who Is Your Employer? [employer] Information not available 08/03/2024 Have There Been Any Changes To Your Family Or Social Situation? No Information no t available 08/03/2024 Are There Any Guns Present In Your Home? No Information not available 08/03/2024 Which Of Your Hands Is Dominant? Right Information not available 08/03/2024 Where Do You Live? Trailer Information not available 03/08/2025 Do You Have A Medical Power Of Platen Press Feeder? No Information not available 08/03/2024 What Was [...] anxious, or unable to sleep at night)? [id number] Information not available 08/03/2024 Do you have [...] 10:39:21 Medical History Condition Response Other Y Breast Cancer Y Diabetes Y Obesity Y Arthritis Y Headaches Y Gynecological History Statement/Question Response On BCP's [...] ICD10 Code Diagnosis IMO Codes Diagnosis Note [id number] DANIE Peters [facility] [address] [place] [address] 2 03/08/2025 12:41:13 03/08/2025 13:41:52 Type 2 diabetes mellitus 98336752 E11.9 09939110 Screening mammography 24 635573 Z12.31 3752544652 Screening for malignant neoplasm of colon 258715208 Z12.11 730438 Superficia l vein thrombosis 810679321 I82.813 Rheumatoid arthritis 698 18352 M06.9 History of deep vein thrombosis 216015855 Z86.718 Multiple skin tags 79321 7009 L91.8 95038401 Viral scre ening status 380736355 Z11.59 473356 HIV screening 943863307 Z11.4 29238801 Health Concerns Section Related Observation LastModified by Organization Detai ls LastModified Time None Recorded Concern Status LastModified by Organization Details LastModified Time None Recorded Payers Encounter Date Sequence Insurance Name Policy Number Policy Weathers Covered Member ID Weathers Member ID Guarantor Name 03/08/2025 1 [employer] [facility] (MEDICAID HMO) Jayne Harris [id number] Jayne Harris Notes Date Note Type Note Provider Name and Address Organization Details Recorded Time 03/08/2025 text/html ROS as noted in the HPI Patient presents for followup. History of diabetes. Doing well.Needs to reschedule mammogram.Has cologuard - has not performed it yet. DANIE Peters [address] [facility], [place], [address], [facility] [employer] 03/08/2025 15:05:12 OBGyn Episode No OBEpisode recorded.
--- OUTSIDE RECORDS SUMMARY | 2025-03-23 18:25 | XMS_ITS | Clinical Summary ---
Author Organization Healthcare Address [address] [place] [address] Care Team Providers Care Ham Stripper Name Role Phone Abner Marshall MD Primary Care Provider [phone] Allergies Active Allergy Reactions Criticality Noted Date Comments Acetaminophen Other - please docum ent in the comment field Low 10/25/2023 Codeine Hives Medium 04/22/2017 Hydrocodone Hives Medium 10/25/2023 Hydrocodone-Acetaminophen Anaphylaxis,Hives High Latex Hives,Unknown - Lu ent states they do not know rxn details Medium 02/28/2015 Rofecoxib Unknown - Patient st ates they do not know rxn details Low 02/28/2015 Medications Risankizumab-rz aa 150 MG/ML solution auto-injector 150 mg. 12/15/2022 Activ e Ozempic, 0.25 or 0.5 MG/DOSE, 2 MG/3ML solution pen-injector 12/02/2023 Active tretinoin (Retin-A) 0.025 % cream Weekly 03/01/2023 Active nortriptyline (Pamelor) 10 MG capsule Take 1 capsule (10 mg) by mouth every night. 30 capsule 11 12/07/2023 Active Active Problems Problem Noted Date Diagnosed Date Obesity (BMI 35.0-39.9 without comorbidity) 07/08 Severe obesity (BMI 35.0-39.9) with comorbidity 07/26/2023 Family History Medical History Relation Name Comments Osteoarthritis Mother Diabetes Other 1 Hypertension Other 2 Other cancer Other 3 Relation Name Status Comments Mother Other 1 Other 2 Other 3 Social History Tobacco Use Types Packs/Day Years Used Date Smoking Tobacco: Every Day Tobacco Cessation:Ready to Q uit: Yes; Counseling Given: Yes Alcohol Use Standard Drinks/Week Comments No 0 (1 standard drink = 0.6 oz pur e alcohol) Comments Unknown Sex and Gender Information Value Date Recorded Sex Assigned at Not on file Legal Sex Female 7:48 PM EDT Gender Identity Not on file Sexual Orientation Not on file Last Filed Vital Signs Vital Sign Reading Time Taken Comments Blood Pressure 112/73 12/07/2023 3:14 PM EDT Pulse 85 12/07/2023 3:14 PM EDT Temperature 37 C (98.6 F) 06/20/2019 11:17 AM EST Respiratory Rate 14 08/22/2018 3:35 PM EDT Oxygen Saturation - - Inhaled Oxygen Concentration - - Weight 113 kg (250 lb) 12/07/2023 3:14 PM EDT Height 167.6 cm (5' 6 ) 12/07/2023 3:14 PM EDT Body Mass Index 40.35 12/07/2023 3:14 PM EDT Plan of Treatment Health Maintenance Due Date Last Done Comments [facility]-Depression Screening 1978 [facility]-HIV Screening 1978 [facility]-/Child/Adol SDOH Screenings 1978 [id number] Vaccine (#1) 12/15/1983 [facility]- SDOH Screenings 1996 [facility]-Adult SDOH Screenings 1996 [facility]-DTaP,Tdap,and Td Vaccines (1 - Tdap) 1997 [facility]-Hepatitis B Vaccines (1 of 3 - 19+ 3-dose series) 1997 [facility]-Pap Smear 12/15/1999 [facility]-Cervical Cancer Screening 2008 [facility]-HPV/Cotest 2008 CT Colonography 12/15/2023 Colonoscopy 12/15/2023 FIT-DNA 12/15/2023 FIT 12/15/2023 FOBT 12/15/2023 Sigmoidoscopy 12/15/2023 [facility]-Colorectal Cancer Screening 12/15/2023 [facility]-Influenza Vaccine (#1) 2025 [facility]-Zoster Vaccines (1 of 2) 2028 [facility]-Hepatitis C Screening Completed 06/20/2019, [facility]-Obesity Intervention Completed 024, 07/26/2023, 07/26/2023, Additional history exists HPV Vaccines Aged Out No longer eligi ble based on patient's age to complete this topic [facility]-HIB Vaccines Aged Out No longer e ligible based on patient's age to complete this topic [facility]-Hepatitis A Vaccines Aged Out No longer eligible based on patient's age to complete this topic [facility]-IPV Vaccines Aged Out No longer e ligible based on patient's age to complete this topic [facility]-Pneumococcal Vaccine: Pediatrics (0 to 5 Years) and At-Risk Patients (6 to 49 Years) Aged Out No longer eligible based on patient's age to complete this topic [facility]-Rotavirus Vaccines Aged Out No lo nger eligible based on patient's age to complete this topic Procedures Procedure Name Priority Date/Time Associated Diagnosis Comments ACUTE HEPATITIS PANEL Routine 06/20/2019 1:20 PM EST from Last 3 Months or Most Recently Relevant to Health Maintenance Results * Acute Hepatitis Panel (06/20/2019 1:20 PM EST) Hepatitis B Surf Antigen NEGATIVE Reference Value: Negative SUNQUEST Hepatitis C Antibody NEGATIVE Reference Range: Negative SUNQUEST Hepatitis A Antibody IgM NEGATIVE Reference Value: Negative SUNQUEST External Hepatitis B Core IgM (HBCM) NEGATIVE Reference Value: Negative SUNQUEST 06/20/2019 1:20 PM EST 06/20/2019 2:37 PM EST us Historical Provider LAB BLOOD ORDERABLES Final R esult SUNQUEST from Last 3 Months or Most Recently Relevant to Health Maintenance Insurance [employer] [facility] MEDICAID Care Teams Ham Stripper Relationship Specialty Start Date End Date Abner Marshall MD [address] [place] [address] PCP - General 10/17/20
[2025-03-23 18:26] VITALS: BP 138/85; PULSE 94; RESP 18; TEMP 37.1; O2SAT 98; BMI 31.4
--- NOTE | 2025-03-23 18:33 | ECG_ITS ---
APPROVED REPORT Exam: Resting ECG HR:86 bpm ECG Measurements Heart Rate 86 AXES UT 211 P 73 QRSd 103 QRS 57 QT 364 T 50 QTc 407 Conclusion SINUS RHYTHM WITH FIRST DEGREE AV BLOCK ABNORMAL ECG UNCONFIRMED REPORT Electronically signed by : DAMION KAUR, 03/26/2025 02:53:42
--- NOTE | 2025-03-23 18:33 | XR_ITS ---
PROCEDURE INFORMATION: Exam: XR Chest Exam date and time: 03/23/2025 6:55 PM Age: 44 years old Clinical indication: Pain; Chest pressure; Additional info: Chest pain TECHNIQUE: Imaging protocol: Radiologic exam of the chest. Views: 1 view. Total images: 1 COMPARISON: CT CHEST WO CON 12/12/2020 7:48 AM FINDINGS: Lungs: Unremarkable. No consolidation. No pulmonary vascular congestion or edema. Pleural spaces: Unremarkable. No pleural effusion. No pneumothorax. Heart/Mediastinum: Unremarkable. No cardiomegaly. No mediastinal widening or hilar enlargement. Bones/joints: Unremarkable. IMPRESSION: No radiographically acute cardiopulmonary process.
--- NOTE | 2025-03-23 18:36 | ED_ITS ---
Discharge Plan Disposition Patient Disposition: Home, Self-Care Prescriptions Prescriptions: New methocarbamol 750 mg tablet 750 mg PO Q8H PRN (Reason: muscle spasm) Qty: 30 0RF lidocaine 5 % adhesive patch,medicated 1 patch topical DAILY Qty: 15 0RF Rx Instructions: leave on most painful area for up to 12 hrs No Action Skyrizi 150 mg/mL pen injector 150 mg SQ rosuvastatin 20 mg tablet 20 mg PO DAILY Qty: 90 3RF cholecalciferol (vitamin D3) 1,250 mcg (50,000 unit) capsule 1,250 mcg PO WEEKLY Qty: 14 0RF semaglutide 1 mg/dose (4 mg/3 mL) pen injector 1 mg SQ WEEKLY Qty: 3 3RF Xarelto 10 mg tablet 10 mg PO DAILY 30 Days Qty: 30 0RF Rx Instructions: for 35 days Referrals Follow up/Referrals: Provider,Referral, MD [Primary Care Provider, Medical] - See instructions Activity Restrictions/Add. Instructions Additional Instructions/Restrictions: You likely have a muscle strain causing your symptoms. You can continue to take Tylenol every 6 hours as needed. Use the muscle relaxer every 8 hours as needed. It will make you sleepy, so avoid driving after taking it. You can also use the lidocaine patches on the affected area to help with symptoms. Follow-up with your primary care physician if symptoms do not improve. If you develop any new or worsening symptoms, or if you become concerned for your help for any reason, return to the emergency department for evaluation. Clinical Impressions Clinical Impression: Back pain Print Language Print Language: Bengali Discharge ED Provider: Paddy Almeida Adult HPI General Chief complaint: Upper Respiratory Infection Stated complaint: head,back,neck,abdominal pain Time Seen by Provider: 03/23/25 18:23 Mode of Arrival: Ambulatory Source of Information: Patient Description of Symptoms (Recalled from ER Triage Doc. by RN): body aches,mccann,ear pain. started night. was checked for kidney stones at [place] History of Present Illness HPI narrative: Jayne Harris is a 44y female with a history of DVT on Xarelto, breast cancer, psoriatic arthritis who presents to the emergency department for complaints of pain. Patient states that on , she was sitting at home and felt pain in her right flank that is spread to both her flank and her neck. She thinks that she might have an ear infection because she has a headache as well. She has been taking Tylenol at home without relief. She has not had any fevers at home that she is aware of. She reports intermittent sharp left-sided chest pains but denies any shortness of breath. She denies any nausea, vomiting, diarrhea, sore throat or pain over her sinuses. She does report some sinus congestion at night. She was seen at an outside hospital yesterday and had a CT scan and was told that she did not have a kidney stone and was discharged. Related Data Home Medications ?Medication ?Instructions ?Recorded ?Confirmed risankizumab-rzaa 150 mg/mL 150 mg SQ 12/15/22 5 subcutaneous pen injector (Skyrizi) Previous Rx's ?Medication ?Instructions ?Recorded cholecalciferol (vitamin D3) 1,250 1,250 mcg PO WEEKLY #14 caps 04/27/24 mcg (50,000 unit) capsule rosuvastatin 20 mg tablet 20 mg PO DAILY #90 tabs 04/07 07/30 semaglutide 1 mg/dose (4 mg/3 mL) 1 mg (0.75 mL) SQ WE EKLY #3 mL 04/27/24 subcutaneous pen injector rivaroxaban 10 mg tablet (Xarelto) 10 mg PO DAILY 30 d ays #30 tabs 07/13/24 lidocaine 5 % topical patch 1 patch topical DAILY #15 ea 03/23/25 methocarbamol 750 mg tablet 750 mg PO Q8H PRN muscle s pasm #30 03/23/25 tabs Allergies Allergy/AdvReac Type Severity Reaction Status Date / Time codeine Allergy Unknown Verified 09/21/24 15:17 latex Allergy Unknown Verified 04/26/24 13:44 acetaminophen (From Vicodin) Allergy Verified 04/26/24 13:44 hydrocodone Allergy Hives Verified 04/26/24 13:44 rofecoxib (From Vioxx) Allergy Verified 04/26/24 13:44 [facility] Disclaimer: The information contained in this section may have been updated after the patient was seen, as this information can be updated by other users. Medical History (Updated 03/23/25 @ 20:50 by Paddy Almeida MD) Diarrhea Obesity Eczema herpeticum Otosclerosis Mixed hearing loss of left ear Eustachian tube dysfunction Impacted cerumen of right ear Family history of Meniere's disease Dizziness Tinnitus Breast cancer Psoriatic arthritis Obesity (BMI 30-39.9) BMI 39.0-39.9,adult Psoriasis Dyspnea Tobacco dependence syndrome Hx of deep venous thrombosis Insomnia Surgical History History of tubal ligation History of hysterectomy History of cholecystectomy Family History Other Meniere disease Social History Smoking Status: Current every day smoker tobacco type: cigarettes packs per day: 1 alcohol intake: never counseling provided: none substance use type: denies use current occupational status: other Travel in the last 8 weeks?: Inside the [place] Have you lived/traveled outside US in past 30 days?: No Contact w/someone who lives/traveled outside US past 30 days?: No Exposure to someone with infectious disease in past 14 days?: No Do you have a fever (greater than 100.4 F or 38 C)?: No Have you tested positive for COVID-19?: No Exposed to someone with COVID-19 in past 14 days?: No Do you have a sore throat?: No Do you have a cough?: No Do you have any weakness?: No Do you have any diarrhea?: No Are you experiencing any unusual bleeding?: No Do you have any muscle aches/pain?: No Do you have any abdominal pain?: No Are you experiencing loss of taste or smell?: No Other Medical History Have you received the Flu Vaccine for this season: No Have you received the Pneumonia Vaccine: No ROS Obtained: Yes Systems reviewed as appropriate & no additional complaints except as documented Physical Exam General General appearance: alert and in no apparent distress Head Head exam: atraumatic Eye Eye exam: Present normal appearance ENT ENT exam: Present normal external ear exam Neck Neck exam: Present full ROM Chest Chest inspection: Present symmetric chest wall rise Respiratory Respiratory exam: Present normal lung sounds bilaterally; Absent respiratory distress Cardiovascular Cardiovascular exam: Present regular rate and normal rhythm Abdominal Exam Abdominal exam: Present soft; Absent tenderness or guarding Extremities Exam Extremities exam: Present normal inspection Back Exam Back exam: Present normal inspection Neurological Exam Neurological exam: Present alert and oriented X3 Psychiatric Psychiatric exam: Present normal affect Skin Skin exam: Present warm and dry Medical Decision Making Medical Records Screening: Per USPSTF and CDC recommendations, given the prevalence of disease in our region, it is our hospital?s policy to screen for HIV and viral Hepatitis for all patients aged 18 and over and those with ongoing risk factors. Levon Inquiry Pt receiving controlled substance: No Vital Signs: 03/23/25 18:26 03/23/25 19:07 03/23/25 19:16 Temperature 98.8 F Temperature Source Oral Pulse Rate 80 83 Pulse Rate [Right] 94 H Respiratory Rate 18 16 Blood Pressure 126/70 126/70 Blood Pressure [Right Arm] 138/85 Blood Pressure Mean [Right Arm] 102 02 Sat by Pulse Oximetry 98 99 99 Oxygen Delivery Method Room Air Room Air 03/23/25 19:49 03/23/25 20:46 03/23/25 20:53 Temperature 98.1 F Temperature Source Pulse Rate 64 76 Pulse Rate [Right] Respiratory Rate 16 18 Blood Pressure 92/60 L 126/70 Blood Pressure [Right Arm] Blood Pressure Mean [Right Arm] 02 Sat by Pulse Oximetry 99 98 Oxygen Delivery Method Room Air Room Air Room Air Lab Data Lab Results 03/23/25 18:42: WBC 6.4, RBC 4.60, Hgb 12.8, Hct 38.8, MCV 84.3, MCH 27.8, MCHC 33.0, RDW 14.4, Plt Count 255, MPV 9.6, Neut % (Auto) 55.7, Lymph % (Auto) 30.1, [place] % (Auto) 11.9 H, Eos % (Auto) 1.2, Baso % (Auto) 0.8, Neut # (Auto) 3.6, Lymph # (Auto) 1.9, [place] # (Auto) 0.8, Eos # (Auto) 0.1, Baso # (Auto) 0.1, Sodium 138, Potassium 3.6, Chloride 105, Carbon Dioxide 26, Anion Gap 10.6, BUN 8, Creatinine 0.60, Estimated Creat Clear 164, Estimated GFR 108, Est GFR ( Amer) 130, Glucose 89, Calcium 8.8, Total Bilirubin 0.4, AST 32, ALT 24, Alkaline Phosphatase 60, Troponin I < 0.01, Total Protein 7.1, Albumin 4.2, Globulin 2.9, Albumin/Globulin Ratio 1.4, Lipase 92 03/23/25 18:51: SARS-CoV-2 (PCR) Not detected, Influenza A Untype (PCR) Not detected, Influenza Type B (PCR) Not detected 03/23/25 19:11: Urine Color Yellow, Urine Appearance Clear, Urine pH 6.0, Ur Specific [place] 1.020, Urine Protein Negative, Urine Glucose (UA) Negative, Urine Ketones Negative, Urine Blood 1+ A, Urine Nitrate Negative, Urine Bilirubin Negative, Urine Urobilinogen 0.2, Ur Leukocyte Esterase Negative, Urine RBC 3-5, Urine WBC None, Ur Squamous Epith Cells 3-5, Urine Bacteria 1+ 03/23/25 18:42 03/23/25 18:42 Orders (Tests/Meds): ED MEDICATIONS Discontinued Medications Generic Name Dose Route Start Last Admin Trade Name Freq PRN Reason Stop Dose Admin Acetaminophen 1,000 mg 03/23/25 18:33 03/23/25 18:58 Acetaminophen 500mg Tab PO 03/23/25 18:34 1,000 mg ONCE ONE Administration Lidocaine 1 each 03/23/25 18:33 03/23/25 18:58 Lidocaine 5% Transdermal Patch TD 03/23/25 18:34 1 each ONCE ONE Administration Methocarbamol 750 mg 03/23/25 18:36 03/23/25 18:57 Methocarbamol 500mg Tablet PO 03/23/25 18:37 750 mg ONCE ONE Administration ORDERS Category Date Time Status CXR --portable [XR chest portable] Stat Exams 03/23/25 18:33 Completed CBC w/Auto Diff [Complete Blood Count Auto Diff] Stat Lab 03/23/25 18:42 Completed CMP [Comprehensive Metabolic Panel] Stat Lab 03/23/25 18:42 Completed Lipase Stat Lab 03/23/25 18:42 Completed Rapid PCR Covid and Flu A/B Stat Lab 03/23/25 18:51 Completed Troponin I Stat Lab 03/23/25 18:42 Completed UA [Urinalysis and Microscopic] Stat Lab 03/23/25 19:11 Completed ECG Data Tracing #1: I reviewed this ECG and interpreted as documented below: Normal sinus rhythm. Borderline first-degree AV block. QTc 407. No ST elevation or depression. Medical Decision Narrative: Jayne Harris is a 44y female with a history of DVT on Xarelto, breast cancer, psoriatic arthritis who presents to the emergency department for complaints of pain. Patient states that on , she was sitting at home and felt pain in her right flank that is spread to both her flank and her neck. She thinks that she might have an ear infection because she has a headache as well. She has been taking Tylenol at home without relief. She has not had any fevers at home that she is aware of. She reports intermittent sharp left-sided chest pains but denies any shortness of breath. She denies any nausea, vomiting, diarrhea, sore throat or pain over her sinuses. She does report some sinus congestion at night. She was seen at an outside hospital yesterday and had a CT scan and was told that she did not have a kidney stone and was discharged. On arrival, patient is hemodynamically stable, in no acute distress, breathing comfortably on room air and maintaining appropriate oxygen saturation. Physical exam revealed nontoxic-appearing female in no distress. She is alert and oriented. She has no CVA tenderness bilaterally. No significant abdominal tenderness, guarding or rigidity. Cardiopulmonary exam is unremarkable. Tympanic membrane's are grossly unremarkable bilaterally. She has no tenderness over the sinuses of the face. Her physical exam is grossly unremarkable. Differential diagnosis includes, but is not limited to: Myalgias secondary to viral illness, muscle strain, urinary tract infection, pneumonia, ACS, among others. The most morbid conditions were considered and workup was based on these. Patient's workup included: EKG, chest x-ray, troponin, CBC with differential, CMP, lipase, rapid PCR COVID and flu testing, urinalysis. Patient was treated with 1 mg oral Tylenol, 1 lidocaine patch and a 750 mg of Robaxin. EKG is without evidence of ischemia. See interpretation above Chest x-ray interpreted by me personally. No focal consolidation, no pneumothorax, no widened mediastinum, no enlargement of the cardiac silhouette. Unremarkable chest x-ray. See radiology report for details. Laboratory studies are grossly unremarkable and nonactionable. No leukocytosis. No electrolyte derangements or JAMIE. Initial troponin less than 0.01. Lipase normal at 92. Urinalysis with 3-5 red blood cells but no evidence of infection with negative nitrate and negative leukocyte esterase and no white blood cells. Negative flu and COVID testing. On reassessment, patient reports significant improvement in her symptoms, especially with the lidocaine patch. I do feel that patient's symptomatology is most consistent with muscle strain versus viral etiology and will improve over time. Encouraged her to take Tylenol and we will be prescribing Robaxin and lidocaine patches for her to take at home. I encouraged her to follow-up with her primary care physician. Return precautions were given. All questions were answered. She demonstrated understanding and was in agreement this plan. She was then discharged from the emergency department in stable condition. Critical Care Critical Care Time Critical Care Time: No
[2025-03-23 18:49] LABS: Hematocrit 38.8 % (37.0-47.0); Hemoglobin 12.8 g/dL (12.2-16.2); Immature Granulocytes % 0.3 %; Mean Corpuscular HGB Conc 33.0 g/dL (31.8-35.4); Mean Corpuscular Hemoglobin 27.8 pg (27.0-31.2); Mean Corpuscular Volume 84.3 fl (81-99); Nucleated Red Blood Cells % 0 %; Platelet Count 255 K/mm3 (142-424); Red Blood Count 4.60 M/mm3 (4.20-5.40); Red Cell Distribution Width-SD 44.6 fL; White Blood Count 6.4 K/mm3 (4.8-10.8)
[2025-03-23 18:56] LABS: Coronavirus 19, PCR Not Detected (NotDetected); Influenza A, PCR Not Detected (NotDetected); Influenza B, PCR Not Detected (NotDetected)
[2025-03-23] MEDS: METHOCARBAMOL 500MG TABLET 750 MG PO (18:57)
[2025-03-23] MEDS: ACETAMINOPHEN 500MG TAB 1000 MG PO (18:58)
[2025-03-23] MEDS: LIDOCAINE 5% TRANSDERMAL PATCH 1 EACH TD (18:58)
[2025-03-23 19:07] VITALS: BP 126/70; PULSE 80; O2SAT 99
[2025-03-23 19:12] LABS: Albumin Level 4.2 g/dl (3.5-5.0); Chloride 105 mmol/L (98-107); Potassium 3.6 mmoL/L (3.5-5.1); Sodium 138 mmol/L (136-145)
[2025-03-23 19:15] LABS: Alanine Aminotransferase 24 U/L (12-78); Albumin/Globulin Ratio 1.4 (1.1-1.8); Alkaline Phosphatase 60 U/L (38-126); Anion Gap 10.6 mEq/L (5-15); Aspartate Amino Transferase 32 U/L (14-36); Bilirubin,Total 0.4 mg/dl (0.2-1.3); Blood Urea Nitrogen 8 mg/dl (7-17); Carbon Dioxide 26 mmol/L (22.0-30.0); Creatinine Clearance Estimated 164 mL/min (50-200); Creatinine,Serum 0.60 mg/dl (0.52-1.04); Estimated Glomerular Filt Rate 108 ml/min (>60); GFR (African American) 130 ML/MIN (>60); Globulin 2.9 g/dL (1.3-3.2); Lipase 92 U/L (23-300); Total Protein,Serum 7.1 g/dl (6.3-8.2)
[2025-03-23 19:16] VITALS: BP 126/70; PULSE 83; RESP 16; O2SAT 99
[2025-03-23 19:16] LABS: Calcium 8.8 mg/dl (8.4-10.2); Glucose 89 mg/dl (74-100)
[2025-03-23 19:30] LABS: Troponin I < 0.01 ng/ml (0.00-0.034)
[2025-03-23 19:46] LABS: Microscopic, Urine URINE MICROSCOPIC (MICROSCOPIC)
[2025-03-23 19:48] LABS: Bilirubin,Urine Negative (Negative); Color,Urine YELLOW (Yellow); Glucose,Urine (UA) Negative (Negative); Ketones,Urine Negative (Negative); Leukocyte Esterase,Urine Negative (Negative); PH,Urine 6.0 (5.0-8.5); Protein,Urine Negative (Negative); Specific Gravity, Urine 1.020 (1.005-1.030); Urobilinogen,Urine 0.2 EU/dl (0.2)
[2025-03-23 19:49] VITALS: O2SAT 99
[2025-03-23 20:12] LABS: Bacteria,Urine 1+ /lpf
[2025-03-23 20:46] VITALS: BP 92/60; PULSE 64; RESP 16; O2SAT 98
[2025-03-23 20:53] VITALS: BP 126/70; PULSE 76; RESP 18; TEMP 36.7; O2SAT 98
== END 2025-03-23 20:57 | disposition home or self-care (01) ==
PROVIDERS: Emergency Provider Student in an Organized Health Care Education/Training Program
DX: M54.50 Low back pain, unspecified (principal); R10.A3 Flank pain, bilateral; R51.9 Headache, unspecified; M54.2 Cervicalgia
CPT/HCPCS: 71045; 80053; 81001; 83690; 84484; 85025; 87636; 93005; 99284